=== PATIENT | male | born 1950 | race Caucasian/White ===

== ENCOUNTER 2020-08-02 09:32 | Outpatient (REF) | payer MEDICARE, SELFPAY ==
[2020-08-02 10:31] LABS: MANUAL DIFF FLAG NO
[2020-08-02 10:35] LABS: Basophils Percent Auto 0.4 % (0-2); Eosinophils Absolute Auto 0.2 X10*3/uL (0.0-0.4); Eosinophils Percent Auto 3.4 % (0-4); Hematocrit 48.6 % (42-52); Hemoglobin 16.3 g/dl (14.0-18.0); Imm Gran Abs Auto 0.03 X10*3/uL (0.00-0.03); Imm Gran Pct Auto 0.4 % (0.0-0.4); Lymphocytes Absolute Auto 1.9 X10*3/uL (1.2-4.9); Lymphocytes Percent Auto 27.9 % (20-40); Mean Corpuscular HGB Conc 33.5 g/dl (31.0-36.0); Mean Corpuscular Hemoglobin 30.8 pg (27.0-33.0); Mean Corpuscular Volume 91.9 fL (80-98); Mean Platelet Volume 9.2 fL (9.4-12.4); Monocytes Absolute Auto 0.6 X10*3/uL (0.1-1.2); Neutrophils Percent Auto 58.9 % (45-73); Platelet Count 266 X10*3/uL (160-400); Red Blood Count 5.29 X10*6/uL (4.60-5.80); Red Cell Distribution Width 13.2 % (11.0-16.0); White Blood Count 6.8 X10*3/uL (4.8-10.8)
[2020-08-02 10:49] LABS: Glucose Urine UA 500 MG/DL (NEG); Leukocyte Esterase Urine NEG (NEG); Nitrite Urine NEG (NEG); PH 5.5 (5.0-8.0); Specific Gravity - Urine >= 1.030 (1.005-1.025); Urine Blood NEG (NEG); Urine Ketones NEG (NEG); Urine Protein NEG (NEG-TRACE)
[2020-08-02 10:51] LABS: Appearance Urine CLEAR; Color Urine YELLOW
[2020-08-02 11:07] LABS: Alanine Aminotransferase 25 U/L (0-40); Albumin Level 4.2 g/dL (3.5-5.0); Alkaline Phosphatase 109 U/L (39-117); Anion Gap 12 (12-20); Aspartate Amino Transferase 18 U/L (5-37); Bilirubin Total 0.9 mg/dL (0.0-1.0); Blood Urea Nitrogen 15 mg/dL (9-16); Calcium 9.3 mg/dL (8.4-10.2); Carbon Dioxide 29 mmol/L (22-29); Chloride 107 mmol/L (96-108); Estimated Glomerular Filt Rate 55; Glucose Random 101 mg/dL (60-115); Sodium 143 mmol/L (135-145); Total Protein 7.7 g/dL (6.5-8.0)
[2020-08-02 11:32] LABS: Thyroid Stimulating Hormone 0.98 uIU/mL (0.32-4.0)
[2020-08-02 11:41] LABS: Folate 5.9 ng/mL (> or = 4.0); Vitamin B12 793 pg/mL (200-900)
[2020-08-02 12:24] LABS: Erythrocyte Sedimentation Rate 4 MM/HR (0-15)
[2020-08-02 12:42] LABS: RBC Urine 0 /HPF (0); WBC Urine 0 /HPF (0-4)
== END 2020-08-02 09:33 | disposition home or self-care (01) ==
LOC: HO.WFDLDS 09:32
PROVIDERS: Visit Provider Internal Medicine
DX: E78.00 Pure hypercholesterolemia, unspecified (principal); I10 Essential (primary) hypertension; E11.65 Type 2 diabetes mellitus with hyperglycemia; Z79.4 Long term (current) use of insulin; Z79.899 Other long term (current) drug therapy
CPT/HCPCS: 36415; 80053; 81001; 82607; 82746; 84439; 84443; 85025; 85652

== ENCOUNTER → 2020-10-11 09:42 | Outpatient (BNVA) | payer MEDICARE, SELFPAY | PROVIDERS: PCP Internal Medicine; Visit Provider Internal Medicine Endocrinology, Diabetes & Metabolism | DX: E11.65 Type 2 diabetes mellitus with hyperglycemia (principal); E11.42 Type 2 diabetes mellitus with diabetic 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; E11.22 Type 2 diabetes mellitus with diabetic chronic kidney disease; I12.9 Hypertensive chronic kidney disease with stage 1 through stage 4 chronic kidney disease, or unspecified chronic kidney disease; N18.31 Chronic kidney disease, stage 3a; Z79.4 Long term (current) use of insulin; E66.9 Obesity, unspecified; E78.00 Pure hypercholesterolemia, unspecified | CPT/HCPCS: 82947; 99202 ==

== ENCOUNTER 2021-05-29 09:36 | Outpatient (REF) | payer MEDICARE, SELFPAY ==
[2021-05-29 11:25] LABS: MANUAL DIFF FLAG NO
[2021-05-29 11:35] LABS: Basophils Absolute Auto 0.1 X10*3/uL (0.0-0.2); Eosinophils Absolute Auto 0.2 X10*3/uL (0.0-0.4); Eosinophils Percent Auto 3.7 % (0-4); Hematocrit 45.1 % (42.0-52.0); Hemoglobin 15.2 g/dl (14.0-18.0); Imm Gran Abs Auto 0.04 X10*3/uL (0.00-0.03); Imm Gran Pct Auto 0.8 % (0.0-0.4); Lymphocytes Absolute Auto 1.4 X10*3/uL (1.2-4.9); Lymphocytes Percent Auto 28.3 % (20-40); Mean Corpuscular HGB Conc 33.7 g/dl (31.0-36.0); Mean Corpuscular Hemoglobin 30.8 pg (27.0-33.0); Mean Corpuscular Volume 91.3 fL (80.0-98.0); Mean Platelet Volume 9.8 fL (9.4-12.4); Monocytes Absolute Auto 0.4 X10*3/uL (0.1-1.2); Monocytes Percent Auto 7.3 % (2-11); Neutrophils Absolute Auto 2.9 x10*3/uL (2.0-8.3); Neutrophils Percent Auto 58.9 % (45-73); Platelet Count 267 X10*3/uL (160-400); Red Blood Count 4.94 X10*6/uL (4.60-5.80); Red Cell Distribution Width 13.2 % (11.0-16.0); White Blood Count 4.9 X10*3/uL (4.8-10.8)
[2021-05-29 12:08] LABS: Estimated Average Glucose 217 mg/dL; Hemoglobin A1c % 9.2 %
[2021-05-29 12:12] LABS: Creatinine Urine 149.62 mg/dL
[2021-05-29 12:36] LABS: Vitamin B12 435 pg/mL (200-900)
[2021-05-29 14:20] LABS: Alanine Aminotransferase 22 U/L (0-40); Albumin Level 3.9 g/dL (3.5-5.0); Alkaline Phosphatase 136 U/L (39-117); Anion Gap 15 (12-20); Aspartate Amino Transferase 15 U/L (5-37); Bilirubin Total 0.5 mg/dL (0.0-1.0); Blood Urea Nitrogen 13 mg/dL (9-16); Calcium 9.2 mg/dL (8.4-10.2); Carbon Dioxide 24 mmol/L (22-29); Chloride 106 mmol/L (96-108); Cholesterol 215 mg/dL; Estimated Glomerular Filt Rate 49; Glucose Random 249 mg/dL (60-115); HDL Cholesterol 39 mg/dL; LDL Cholesterol Calculated 133 mg/dl; Potassium 4.7 mmol/L (3.3-5.1); Sodium 140 mmol/L (135-145); Total Protein 7.3 g/dL (6.5-8.0); Triglycerides 216 mg/dL
[2021-05-29 14:41] LABS: Free T4 (Free Thyroxine) 0.88 ng/dL (0.71-1.85); Prostate Specific Antigen Scr 3.35 ng/mL (<0.05-4.0); Thyroid Stimulating Hormone 1.23 uIU/mL (0.32-4.0)
== END 2021-05-29 09:37 | disposition home or self-care (01) ==
LOC: HO.WFDLDS 09:36
PROVIDERS: Visit Provider Internal Medicine
DX: E11.65 Type 2 diabetes mellitus with hyperglycemia (principal); E78.00 Pure hypercholesterolemia, unspecified; Z79.4 Long term (current) use of insulin
CPT/HCPCS: 36415; 80053; 80061; 82043; 82607; 82746; 83036; 84153; 84439; 84443; 85025

== ENCOUNTER → 2021-09-26 09:27 | Outpatient (BNVA) | payer MEDICARE, SELFPAY | PROVIDERS: PCP Internal Medicine; Visit Provider Psychiatry & Neurology Neurology | DX: R41.3 Other amnesia (principal); G47.33 Obstructive sleep apnea (adult) (pediatric) | CPT/HCPCS: 99202 ==

== ENCOUNTER 2021-09-28 11:48 | Outpatient (REF) | payer MEDICARE, SELFPAY ==
[2021-09-28 12:09] LABS: MANUAL DIFF FLAG NO
[2021-09-28 12:17] LABS: Basophils Percent Auto 0.6 % (0-2); Eosinophils Absolute Auto 0.2 X10*3/uL (0.0-0.4); Eosinophils Percent Auto 3.7 % (0-4); Hematocrit 42.9 % (42.0-52.0); Hemoglobin 14.5 g/dl (14.0-18.0); Imm Gran Abs Auto 0.02 X10*3/uL (0.00-0.03); Imm Gran Pct Auto 0.4 % (0.0-0.4); Lymphocytes Absolute Auto 1.4 X10*3/uL (1.2-4.9); Lymphocytes Percent Auto 26.2 % (20-40); Mean Corpuscular HGB Conc 33.8 g/dl (31.0-36.0); Mean Corpuscular Hemoglobin 30.7 pg (27.0-33.0); Mean Corpuscular Volume 90.9 fL (80.0-98.0); Monocytes Absolute Auto 0.4 X10*3/uL (0.1-1.2); Monocytes Percent Auto 7.7 % (2-11); Neutrophils Absolute Auto 3.2 x10*3/uL (2.0-8.3); Neutrophils Percent Auto 61.4 % (45-73); Platelet Count 241 X10*3/uL (160-400); Red Blood Count 4.72 X10*6/uL (4.60-5.80); White Blood Count 5.2 X10*3/uL (4.8-10.8)
[2021-09-28 12:56] LABS: Estimated Average Glucose 186 mg/dL; Hemoglobin A1c % 8.1 %
[2021-09-28 13:29] LABS: Vitamin B12 372 pg/mL (200-900)
[2021-09-28 14:25] LABS: Alanine Aminotransferase 29 U/L (0-40); Albumin Level 3.9 g/dL (3.5-5.0); Alkaline Phosphatase 116 U/L (39-117); Anion Gap 13 (12-20); Aspartate Amino Transferase 19 U/L (5-37); Bilirubin Total 0.9 mg/dL (0.0-1.0); Blood Urea Nitrogen 16 mg/dL (9-16); Calcium 9.3 mg/dL (8.4-10.2); Carbon Dioxide 25 mmol/L (22-29); Chloride 108 mmol/L (96-108); Cholesterol 111 mg/dL; Estimated Glomerular Filt Rate 60; Glucose Random 139 mg/dL (60-115); HDL Cholesterol 39 mg/dL; LDL Cholesterol Calculated 62 mg/dl; Sodium 141 mmol/L (135-145); Total Protein 7.1 g/dL (6.5-8.0); Triglycerides 50 mg/dL
[2021-09-28 14:36] LABS: Thyroid Stimulating Hormone 0.66 uIU/mL (0.32-4.0); Vitamin D 25-OH Total 29.1 ng/mL (>30)
[2021-10-02 16:37] LABS: Homocysteine 12.3 umol/L (<11.4)
== END 2021-09-28 11:49 | disposition home or self-care (01) ==
LOC: HO.LAB 11:48
PROVIDERS: Absent Provider Internal Medicine; PCP Internal Medicine; Visit Provider Psychiatry & Neurology Neurology
DX: R41.3 Other amnesia (principal); E78.00 Pure hypercholesterolemia, unspecified
CPT/HCPCS: 36415; 80053; 80061; 82306; 82607; 82746; 83036; 83090; 84443; 85025

== ENCOUNTER 2021-09-29 07:21 | Outpatient (REF) | payer MEDICARE, SELFPAY ==
--- NOTE | ~2021-09-29 | MR_ITS ---
EXAMINATION: MR BRAIN WITHOUT CONTRAST CLINICAL INFORMATION: Amnesia. COMPARISON: Head CT from 08/28/2016. TECHNIQUE: Multiplanar, multisequence imaging of the brain was performed without contrast. FINDINGS: No diffusion abnormalities are identified to suggest an acute infarct. The ventricles are normal in size. No mass effect or midline shift is seen. Nonspecific very mild scattered white matter signal changes may be due to chronic microangiopathy. No extra-axial fluid collections are seen. The brainstem and cerebellum are normal. The gradient refocused acquisition demonstrates no pathologic magnetic susceptibility artifact to indicate underlying acute or chronic blood products. The craniovertebral junction, marrow signal, and midline structures are normal. The major intracranial flow voids at the level of the [place] of [place] are preserved. The dural venous sinus flow voids are maintained. The mastoid air cells are well aerated. There is a 2.8 cm retention cyst along the floor of the left maxillary antrum. Mild patchy areas of mucosal thickening noted in the ethmoid sinus air cells bilaterally. MR/MR head/brain wo con IMPRESSION: No acute process. Very mild chronic white matter microangiopathy.
== END 2021-09-29 07:22 | disposition home or self-care (01) ==
LOC: HO.MRI 07:21
PROVIDERS: Visit Provider Psychiatry & Neurology Neurology
DX: R41.3 Other amnesia (principal)
CPT/HCPCS: 70551

== ENCOUNTER 2023-02-19 08:29 | Outpatient (REF) | payer MEDICARE, SELFPAY ==
[2023-02-19 08:49] LABS: MANUAL DIFF FLAG NO
[2023-02-19 10:18] LABS: Basophils Percent Auto 0.7 % (0-2); Eosinophils Absolute Auto 0.2 X10*3/uL (0.0-0.4); Eosinophils Percent Auto 3.2 % (0-4); Hematocrit 46.6 % (42.0-52.0); Hemoglobin 15.8 g/dl (14.0-18.0); Imm Gran Abs Auto 0.04 X10*3/uL (0.00-0.03); Imm Gran Pct Auto 0.7 % (0.0-0.4); Lymphocytes Absolute Auto 1.5 X10*3/uL (1.2-4.9); Lymphocytes Percent Auto 28.6 % (20-40); Mean Corpuscular HGB Conc 33.9 g/dl (31.0-36.0); Mean Corpuscular Hemoglobin 30.6 pg (27.0-33.0); Mean Corpuscular Volume 90.1 fL (80.0-98.0); Mean Platelet Volume 9.6 fL (9.4-12.4); Monocytes Absolute Auto 0.5 X10*3/uL (0.1-1.2); Monocytes Percent Auto 8.3 % (2-11); Neutrophils Absolute Auto 3.2 x10*3/uL (2.0-8.3); Neutrophils Percent Auto 58.5 % (45-73); Platelet Count 251 X10*3/uL (160-400); Red Blood Count 5.17 X10*6/uL (4.60-5.80); Red Cell Distribution Width 12.8 % (11.0-16.0); White Blood Count 5.4 X10*3/uL (4.8-10.8)
[2023-02-19 10:28] LABS: Estimated Average Glucose 203 mg/dL; Hemoglobin A1c % 8.7 %
[2023-02-19 11:00] LABS: Alanine Aminotransferase 17 U/L (0-40); Albumin Level 3.9 g/dL (3.5-5.0); Alkaline Phosphatase 105 U/L (39-117); Anion Gap 11 (12-20); Aspartate Amino Transferase 13 U/L (5-37); Bilirubin Total 0.5 mg/dL (0.0-1.0); Blood Urea Nitrogen 16 mg/dL (9-16); Calcium 9.6 mg/dL (8.4-10.2); Carbon Dioxide 28 mmol/L (22-29); Chloride 106 mmol/L (96-108); Cholesterol 216 mg/dL; Estimated Glomerular Filt Rate 46; Glucose Random 149 mg/dL (60-115); HDL Cholesterol 41 mg/dL; LDL Cholesterol Calculated 150 mg/dl; Potassium 4.5 mmol/L (3.3-5.1); Sodium 140 mmol/L (135-145); Total Protein 7.7 g/dL (6.5-8.0); Triglycerides 125 mg/dL
[2023-02-19 11:16] LABS: Free T4 (Free Thyroxine) 0.76 ng/dL (0.71-1.85); Thyroid Stimulating Hormone 1.55 uIU/mL (0.32-4.0)
[2023-02-19 11:20] LABS: Creatinine Urine 197.15 mg/dL
[2023-02-19 11:31] LABS: Folate 13.2 ng/mL (> or = 4.0); Prostate Specific Antigen Scr 4.55 ng/mL (<0.05-4.0); Vitamin B12 1106 pg/mL (200-900)
== END 2023-02-19 08:30 | disposition home or self-care (01) ==
LOC: HO.LAB 08:29
PROVIDERS: PCP Internal Medicine; Visit Provider Internal Medicine
DX: Z12.5 Encounter for screening for malignant neoplasm of prostate (principal); E11.65 Type 2 diabetes mellitus with hyperglycemia; E78.00 Pure hypercholesterolemia, unspecified; Z79.4 Long term (current) use of insulin
CPT/HCPCS: 36415; 80053; 80061; 82043; 82607; 82746; 83036; 84153; 84439; 84443; 85025

== ENCOUNTER 2023-03-12 08:13 | Outpatient (REF) | payer MEDICARE, SELFPAY ==
[2023-03-12 10:48] LABS: Alanine Aminotransferase 14 U/L (0-40); Albumin Level 3.7 g/dL (3.5-5.0); Alkaline Phosphatase 91 U/L (39-117); Anion Gap 9 (12-20); Aspartate Amino Transferase 14 U/L (5-37); Bilirubin Total 0.8 mg/dL (0.0-1.0); Blood Urea Nitrogen 11 mg/dL (9-16); Calcium 9.2 mg/dL (8.4-10.2); Carbon Dioxide 29 mmol/L (22-29); Chloride 107 mmol/L (96-108); Estimated Glomerular Filt Rate 52; Glucose Random 124 mg/dL (60-115); Potassium 3.9 mmol/L (3.3-5.1); Sodium 141 mmol/L (135-145); Total Protein 6.9 g/dL (6.5-8.0)
[2023-03-12 11:23] LABS: Creatinine Urine 270.04 mg/dL
[2023-03-12 11:55] LABS: PSA,Total (Free>4and<10) 3.46 ng/mL (0.00-4.00)
== END 2023-03-12 08:14 | disposition home or self-care (01) ==
LOC: HO.LAB 08:13
PROVIDERS: PCP Internal Medicine; Visit Provider Internal Medicine
DX: E11.65 Type 2 diabetes mellitus with hyperglycemia (principal); R97.20 Elevated prostate specific antigen [PSA]; Z79.4 Long term (current) use of insulin; Z12.5 Encounter for screening for malignant neoplasm of prostate
CPT/HCPCS: 36415; 80053; 82570; 84153

== ENCOUNTER 2023-03-26 08:25 | Outpatient (AMB) | payer MEDICARE, SELFPAY ==
--- NOTE | 2023-03-26 08:27 | A.OFFPC_ITS ---
Vital Signs 03/26/23 08:28 Height 6 ft 2 in Weight 246 lb BMI 31.6 BP 132/86 Blood Pressure Location Lt brachial Position Sitting Pulse 58 Pulse Source Pulse Oximeter Pulse Oximetry (%) 97 Oxygen Delivery Method Room Air Intake Visit Reasons: 3mth f/u Intake Note: Patient here for a 3 month follow up Instrument Operator Required: No Accompanied by: Self / Same As Patient Allergies lisinopril Allergy (Unknown, Verified 03/26/23 08:29) cough Sulfa (Sulfonamide Antibiotics) Allergy (Unknown, Verified 03/26/23 08:29) Unknown DONAL Inhibitors [DONAL INHIBITORS] Adverse Reaction (Intermediate, Verified 03/26/23 08:29) COUGH jardiance Adverse Reaction (Intermediate, Uncoded 12/07/22 08:38) weakness Medication List - Last Reconciled 03/26/23 by Pearl Álvarez MD amlodipine 2.5 mg PO DAILY 90 days apixaban (Eliquis) 5 mg PO BID atorvastatin 40 mg PO DAILY 90 days blood sugar diagnostic (FreeStyle Lite Strips) As directed check the QAC TID cyanocobalamin (vitamin B-12) 1,000 mcg PO DAILY dulaglutide 1.5 mg (0.5 mL) subcut QWEEK 90 days flash glucose scanning reader (FreeStyle Nori 2 [place]) As directed flash glucose sensor (FreeStyle Nori 2 Sensor kit) As directed fluoxetine 40 mg (2 x 20 mg) PO DAILY folic acid 1 mg PO DAILY 90 days insulin glargine (Basaglar KwikPen U-100 Insulin) 30 units (0.3 mL) subcut DAILY 90 days losartan 50 mg PO DAILY metformin 1,000 mg PO BID 90 days multivitamin 1 cap PO DAILY Tobacco use date assessed: 08/16/22 Fall risk assessment: No Falls in past year Last assessed Fall Risk: 03/26/23 Dental Screening Dental Screen Date: 03/26/23 Did you have a dental visit in the last 12 months?: No Did you have a dental problem in the last 6 months where you did not have access to dental care?: No Was dental information given to patient?: Patient has dentist HPI 3mth f/u HPI Details 72-year-old obese male with uncontrolled diabetes mellitus hypercholesterolemia hypertension chronic kidney disease last seen in December 2022. Patient has been placed on Trulicity and Jardiance but patient cannot tolerate Jardiance. patient on metformin and basal insulin. Patient is here for follow- up noted increase in weight still. Blood work done in February 2023. Patient has been adjusting the Basaglar according to his sugars and discussed with the patient that this is not insulin that we need changing. Clarified with the patient that this is the long-acting 1 and that he should be regular meaning breakfast lunch and dinner and should not be missing meals. Patient has been doing the shots of Trulicity once a week. As for cholesterol since we got the blood work in February changed dose of atorvastatin to 40 mg. We will need to do another cholesterol test in 2 months. Patient admits to eating a lot of ice cream before but since blood work has stopped. Discussed about vaccination also declined COVID shot. 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 Family/Other Diabetes Social History Housing: House Alcohol intake: current Alcohol intake frequency: holidays/special occasions only Patient Tobacco Use Status: Never used Tobacco e-Cigarette/Vaping Use: Never Used Second Hand Smoke Exposure: No service: No Current occupational status: retired Cognitive needs: No Hearing needs: No Vision needs: Yes Questionnaire Thrive Questionnaire Date Thrive assessed: 08/16/22 APOORVA-7 AMB Questionnaire APOORVA-7 Date APOORVA - 7 assessed: 08/16/22 Source: Developed by Drs. Balta Reyes, Estefania B.W. Hiram Singh and colleagues, with an educational alonso from [employer]. Physical exam (Primary Care) Vital Signs: Last Vital Signs Pulse 58 03/26/23 08:28 BP 132/86 03/26/23 08:28 Pulse Ox 97 03/26/23 08:28 Oxygen Delivery Method Room Air 03/26/23 08:28 BMI result Body Mass Index 31.6 Tobacco/Smoking Status: Tobacco use Status Tobacco use date assessed 08/16/22 03/26/23 08:29 Patient Tobacco Use Status Never used Tobacco 03/26/23 08:29 e-Cigarette/Vaping Use Never Used 03/26/23 08:29 Thrive Assessment: Date of Thrive Assessment Date Thrive assessed 08/16/22 03/26/23 08:29 Const General: alert; No acute distress Eyes Conjunctivae: conjunctivae normal Resp Auscultation: clear to auscultation bilaterally Cardio Rate: regular rate Rhythm: regular rhythm GI Inspection: Yes normal to inspection Extrem General: Yes normal to inspection and No edema Assessment and Plan Assessment & Plan (1) Type 2 diabetes mellitus with hyperglycemia: Comment: eye Dr. Palomo Code(s): E11.65 - Type 2 diabetes mellitus with hyperglycemia Qualifiers: Diabetes mellitus half-way insulin use: with exterminator use Qualified Code(s): E11.65 - Type 2 diabetes mellitus with hyperglycemia; Z79.4 - penitentiary (current) use of insulin Plan: Decrease the amount of carbohydrate intake, pasta, bread, rice and potatoes are all sugar and that is aside from all the sweet stuff, remember that fruits are good but they are Sweet also. Hemoglobin A1c goal of less than 7.0. Patient is on Trulicity 1.5 mg per week Basaglar 30 units once a day metformin 1000 mg twice a day. Patient admits to stopping ice cream now. (2) Obesity (BMI 30-39.9): Code(s): E66.9 - Obesity, unspecified Plan: Diet and exercise (3) Hypertension: Code(s): I10 - Essential (primary) hypertension Qualifiers: Hypertension type: essential hypertension Qualified Code(s): I10 - Essential (primary) hypertension Plan: Continue with blood pressure medication. Decrease salt intake and exercise patient is taking losartan 50 mg once a day and amlodipine 2.5 mg once a day (4) Hypercholesterolemia: Code(s): E78.00 - Pure hypercholesterolemia, unspecified Plan: Avoid fried foods, chicken skin, eggs, butter margarine, pastries and meat. Be it pork or beef they have a lot of cholesterol LDL goal of less than 100. Patient is on atorvastatin 40 mg once a day. Adjusted cholesterol medication in February and will need retesting in couple of months. (5) CKD (chronic kidney disease) stage 3, GFR 30-59 ml/min: Code(s): N18.30 - Chronic kidney disease, stage 3 unspecified Qualifiers: Chronic kidney disease stage 3 subtype: stage 3a (GFR 45-59) Qualified Code(s): N18.31 - Chronic kidney disease, stage 3a Plan: Keep well hydrated avoid NSAIDs. (6) History of pulmonary embolism: Comment: 06/2019? 2013 Code(s): Z86.711 - Personal history of pulmonary embolism Plan: Continue with anticoagulation with Eliquis Orders: Orders Lipid Panel Today E78.00 - Pure hypercholesterolemia, unspecified Complete Blood Count Auto Diff Today E78.00 - Pure hypercholesterolemia, unspecified Comprehensive Met. Panel Today E78.00 - Pure hypercholesterolemia, unspecified Hemoglobin A1c Today E78.00 - Pure hypercholesterolemia, unspecified Medications: Changed From insulin glargine (Basaglar KwikPen U-100 Insulin) 30 units (0.3 mL) subcut DAILY 90 days 27 mL 3RF E11.65 - Type 2 diabetes mellitus with hyperglycemia, Z79.4 - intermediate manager (current) use of insulin To insulin glargine (Basaglar KwikPen U-100 Insulin) 45 units (0.45 mL) subcut DAILY 90 days 40.5 mL 3RF E11.65 - Type 2 diabetes mellitus with hyperglycemia, Z79.4 - intermediate manager (current) use of insulin Coding Level of Care Code Est Pt Level 4 (04986) Diagnoses Type 2 diabetes mellitus with hyperglycemia, with long-term current use of insulin E11.65; Z79.4 Diabetes mellitus half-way insulin use: with half-way use Obesity (BMI 30-39.9) E66.9 Essential hypertension I10 Hypertension type: essential hypertension Hypercholesterolemia E78.00 Stage 3a chronic kidney disease N18.31 Chronic kidney disease stage 3 subtype: stage 3a (GFR 45-59) History of pulmonary embolism Z86.711
[2023-03-26 08:28] VITALS: BP 132/86; PULSE 58; O2SAT 97; BMI 31.6
== END 2023-03-26 09:12 | disposition home or self-care (01) ==
LOC: HO.HMGH 08:25
PROVIDERS: PCP Internal Medicine; Visit Provider Internal Medicine
DX: E11.65 Type 2 diabetes mellitus with hyperglycemia (principal); Z79.4 Long term (current) use of insulin; I12.9 Hypertensive chronic kidney disease with stage 1 through stage 4 chronic kidney disease, or unspecified chronic kidney disease; N18.31 Chronic kidney disease, stage 3a; Z86.711 Personal history of pulmonary embolism; E66.9 Obesity, unspecified; E78.00 Pure hypercholesterolemia, unspecified
CPT/HCPCS: 99214

== ENCOUNTER 2023-07-11 08:15 | Outpatient (AMB) | payer MEDICARE, SELFPAY ==
[2023-07-11 08:42] VITALS: BP 124/70; PULSE 76; O2SAT 94; BMI 32.1
--- NOTE | 2023-07-11 08:42 | MHC.PC.OV ---
Vital Signs 07/11/23 08:42 Height 6 ft 2 in Weight 250 lb 0.4 oz BMI 32.1 BP 124/70 Blood Pressure Location Lt brachial Position Sitting Pulse 76 Pulse Source Pulse Oximeter Pulse Oximetry (%) 94 Oxygen Delivery Method Room Air Intake Visit Reasons: DM Jumpbasting Armhole Baster Required: No Allergies lisinopril Allergy (Unknown, Verified 07/11/23 08:42) cough Sulfa (Sulfonamide Antibiotics) Allergy (Unknown, Verified 07/11/23 08:42) Unknown DONAL Inhibitors [DONAL INHIBITORS] Adverse Reaction (Intermediate, Verified 07/11/23 08:42) COUGH jardiance Adverse Reaction (Intermediate, Uncoded 07/11/23 08:42) weakness Medication List - Last Reconciled 07/11/23 by Pearl Álvarez MD amlodipine 2.5 mg PO DAILY 90 days apixaban (Eliquis) 5 mg PO BID atorvastatin 40 mg PO DAILY 90 days blood sugar diagnostic (FreeStyle Lite Strips) As directed check the QAC TID cyanocobalamin (vitamin B-12) 1,000 mcg PO DAILY dulaglutide 1.5 mg (0.5 mL) subcut QWEEK 90 days flash glucose scanning reader (FreeStyle Nori 2 [place]) As directed flash glucose sensor (FreeStyle Nori 2 Sensor kit) As directed fluoxetine 40 mg (2 x 20 mg) PO DAILY folic acid 1 mg PO DAILY 90 days insulin glargine (Basaglar KwikPen U-100 Insulin) 45 units (0.45 mL) subcut DAILY 90 days losartan 50 mg PO DAILY metformin 1,000 mg PO BID 90 days multivitamin 1 cap PO DAILY Tobacco use date assessed: 07/11/23 Fall risk assessment: No Falls in past year Last assessed Fall Risk: 07/11/23 Dental Screening Dental Screen Date: 07/11/23 Did you have a dental visit in the last 12 months?: No Did you have a dental problem in the last 6 months where you did not have access to dental care?: No HPI DM HPI Details 72-year-old bese male with uncontrolled diabetes mellitus hypertension hypercholesterolemia chronic kidney disease coming in for follow-up. March last seen had a positive Cologuard test and was referred to Gastroenterology. Patient is here for follow-up February 2023 last blood work. Patient does have a schedule with Gastroenterology this July. Patient also complains about dysphagia having things stuck in the esophagus and occasionally vomiting it out and discussed with him that in 2017 had an endoscopy done by Dr. Ricks showing a stricture in which dilatation was done. With this meeting with Gastroenterology most probably will who do EGD. As for diabetes patient was not able to get the Trulicity because of non coverage. Will try to figure out which 1 is being covered meanwhile with a hemoglobin A1c rising up to 9.7 advised to refer to endocrinology. As for the cholesterol reminded patient that there is a request for cholesterol test and for him to do it again. As the last LDL done in February was 150 and the goal is less than 100. [facility] Medical History (Updated 07/11/23 @ 09:19 by Pearl Álvarez MD) Adult general medical exam Screening for prostate cancer Diabetic 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 associated with type 2 diabetes mellitus penitentiary (current) use of insulin Vitamin D deficiency Carpal tunnel syndrome, right Laceration of thumb, right, complicated CKD (chronic kidney disease) stage 3, GFR 30-59 ml/min Benign esophageal stricture Fracture of right heel History of renal calculi Hypertension Hypercholesterolemia Obesity (BMI 30-39.9) Obstructive sleep apnea History of pulmonary embolism Anxiety and depression Type 2 diabetes mellitus with hyperglycemia Surgical History History of colonoscopy Family History Father Hypertension CVD (cardiovascular disease) Prostate enlargement Mother No problems noted. Family/Other Diabetes Social History Housing: House Alcohol intake: current Alcohol intake frequency: holidays/special occasions only Patient Tobacco Use Status: Never used Tobacco e-Cigarette/Vaping Use: Never Used Second Hand Smoke Exposure: No service: No Current occupational status: retired Cognitive needs: No Hearing needs: No Vision needs: Yes Questionnaire PHQ-9 Over the last 2 weeks, how often have you been bothered by any of the following problems? 1. Little interest or pleasure in doing things: not at all 2. Feeling down, depressed, or hopeless: not at all 3. Trouble falling or staying asleep, or sleeping too much: not at all 4. Feeling tired or having little energy: not at all 5. Poor appetite or overeating: not at all 6. Feeling bad about yourself - or that you are a failure or have let yourself or your family down: not at all 7. Trouble concentrating on things, such as reading the newspaper or watching television: not at all 8. Moving or speaking so slowly that other people could have noticed. Or the opposite - being so fidgety or restless that you have been moving around a lot more than usual: not at all 9. Thoughts that you would be better off or of hurting yourself in some way: not at all Total score: 0 Depression Screening Interpretation: Negative Depression Screening Done: Yes Source: Developed by Drs. Balta Reyes, Estefania Singh, Hiram Driver and colleagues, with an educational alonso from [employer]. Thrive Questionnaire Date Thrive assessed: 08/16/22 AUDIT C Alcohol Use Questionnaire (AUDIT-C) 1. How often do you have a drink containing alcohol?: Monthly or less 2. How many drinks containing alcohol do you have on a typical day when you are drinking?: 1 or 2 3. How often do you have six or more drinks on one occasion?: Never Total Score: 1 Score Reviewed/Action Taken: No APOORVA-7 AMB Questionnaire APOORVA-7 Date APOORVA - 7 assessed: 07/11/23 Feeling nervous, anxious, or on edge: 0 = Not at all Not being able to stop or control worryin = Not at all Worrying too much about different things: 0 = Not at all Trouble relaxin = Not at all Being so restless that it is hard to sit still: 0 = Not at all Becoming easily annoyed or irritable: 0 = Not at all Feeling afraid as if something awful might happen: 0 = Not at all Total APOORVA-7 score (0-4 normal; 5-9 mild; 10-14 moderate; 15-21 severe): 0 Source: Developed by Drs. Balta Reyes, Estefania Singh, Hiram Driver and colleagues, with an educational alonso from [employer]. Physical exam (Primary Care) Vital Signs: Last Vital Signs Pulse 76 07/11/23 08:42 BP 124/70 07/11/23 08:42 Pulse Ox 94 07/11/23 08:42 Oxygen Delivery Method Room Air 07/11/23 08:42 BMI result Body Mass Index 32.1 Tobacco/Smoking Status: Tobacco use Status Tobacco use date assessed 07/11/23 07/11/23 08:43 Patient Tobacco Use Status Never used Tobacco 07/11/23 08:43 e-Cigarette/Vaping Use Never Used 07/11/23 08:43 PHQ-9: PHQ-9 Score PHQ-9: Total score 0 07/11/23 08:44 Depression Screening Interpretation: Negative Thrive Assessment: Date of Thrive Assessment Date Thrive assessed 08/16/22 07/11/23 08:43 Const General: alert; No acute distress Eyes Conjunctivae: conjunctivae normal Resp Auscultation: clear to auscultation bilaterally Cardio Rate: regular rate Rhythm: regular rhythm GI Inspection: Yes normal to inspection Extrem General: Yes normal to inspection and No edema Results AMB Hemoglobin A1c AMB Hemoglobin A1c 9.7 % Last Edit by ZAKIA Reyna on 07/11/23 08:58 Assessment and Plan Assessment & Plan (1) Type 2 diabetes mellitus with hyperglycemia: Comment: eye Dr. Palomo Code(s): E11.65 - Type 2 diabetes mellitus with hyperglycemia Qualifiers: Diabetes mellitus shelter insulin use: with insurance claim approver use Qualified Code(s): E11.65 - Type 2 diabetes mellitus with hyperglycemia; Z79.4 - janitor (current) use of insulin Plan: Decrease the amount of carbohydrate intake, pasta, bread, rice and potatoes are all sugar and that is aside from all the sweet stuff, remember that fruits are good but they are Sweet also. Hemoglobin A1c goal of less than 7.0 patient is on Trulicity 1.5 insulin Lantus 45 units metformin a 1000 mg twice a day (2) Obesity (BMI 30-39.9): Code(s): E66.9 - Obesity, unspecified Plan: Diet and exercise (3) Hypertension: Code(s): I10 - Essential (primary) hypertension Qualifiers: Hypertension type: essential hypertension Qualified Code(s): I10 - Essential (primary) hypertension Plan: Continue with blood pressure medication. Decrease salt intake and exercise patient takes losartan 50 mg once a day and amlodipine 2.5 mg once a day (4) Hypercholesterolemia: Code(s): E78.00 - Pure hypercholesterolemia, unspecified Plan: Avoid fried foods, chicken skin, eggs, butter margarine, pastries and meat. Be it pork or beef they have a lot of cholesterol LDL goal of less than 100 and triglyceride of less than 150. Presently on atorvastatin 40 mg once a day (5) CKD (chronic kidney disease) stage 3, GFR 30-59 ml/min: Code(s): N18.30 - Chronic kidney disease, stage 3 unspecified Qualifiers: Chronic kidney disease stage 3 subtype: stage 3a (GFR 45-59) Qualified Code(s): N18.31 - Chronic kidney disease, stage 3a Plan: Keep well hydrated avoid NSAIDs controlled diabetes and hypertension (6) Positive colorectal cancer screening using Cologuard test: Code(s): R19.5 - Other fecal abnormalities Plan: Discussed about patient being referred to Gastroenterology- July 30, 2023 (7) Dysphagia: Code(s): R13.10 - Dysphagia, unspecified Plan: 07/30/2023 will be seeing Gastroeneterology Orders: Orders AMB Hemoglobin A1c Today E11.65 - Type 2 diabetes mellitus with hyperglycemia Referrals Endocrinology Referral E11.65 - Type 2 diabetes mellitus with hyperglycemia, Z79.4 - penitentiary (current) use of insulin Coding Level of Care Code Est Pt Level 4 (52031) Diagnoses Type 2 diabetes mellitus with hyperglycemia, with long-term current use of insulin E11.65; Z79.4 Diabetes mellitus shelter insulin use: with insurance claim approver use Obesity (BMI 30-39.9) E66.9 Essential hypertension I10 Hypertension type: essential hypertension Hypercholesterolemia E78.00 Stage 3a chronic kidney disease N18.31 Chronic kidney disease stage 3 subtype: stage 3a (GFR 45-59) Positive colorectal cancer screening using Cologuard test R19.5 Dysphagia R13.10 Additional Codes PHQ-9 - 11130 - PHQ-9 Billing: ([id number])
== END 2023-07-11 09:22 | disposition home or self-care (01) ==
PROVIDERS: PCP Internal Medicine; Visit Provider Internal Medicine
DX: E11.65 Type 2 diabetes mellitus with hyperglycemia (principal); Z79.4 Long term (current) use of insulin; I12.9 Hypertensive chronic kidney disease with stage 1 through stage 4 chronic kidney disease, or unspecified chronic kidney disease; N18.31 Chronic kidney disease, stage 3a; R19.5 Other fecal abnormalities; R13.10 Dysphagia, unspecified
CPT/HCPCS: 83036; 99214

== ENCOUNTER 2023-08-12 13:03 | Day surgery (SDC) | payer MEDICARE, SELFPAY ==
--- NOTE | 2023-08-12 13:15 | P.CONAN_ITS ---
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 (Acute) Mood changes (Acute) CKD (chronic kidney disease) stage 3, GFR 30-59 ml/min (Acute) Hypertension (Acute) Hypercholesterolemia (Acute) Obesity (BMI 30-39.9) (Acute) Obstructive sleep apnea (Acute) Anxiety and depression (Acute) Type 2 diabetes mellitus with hyperglycemia (Acute) Past Medical History Medical History Adult general medical exam Screening for prostate cancer Diabetic 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 associated with type 2 diabetes mellitus [facility] (current) use of insulin Vitamin D deficiency Carpal tunnel syndrome, right Laceration of thumb, right, complicated CKD (chronic kidney disease) stage 3, GFR 30-59 ml/min Benign esophageal stricture Fracture of right heel History of renal calculi Hypertension Hypercholesterolemia Obesity (BMI 30-39.9) Obstructive sleep apnea History of pulmonary embolism Anxiety and depression Type 2 diabetes mellitus with hyperglycemia Family History Family History Father Hypertension CVD (cardiovascular disease) Prostate enlargement Mother No problems noted. Family/Other Diabetes Surgical History Surgical History History of colonoscopy Social History Social History Housing: House Alcohol intake: current Alcohol intake frequency: holidays/special occasions only Patient Tobacco Use Status: Never used Tobacco e-Cigarette/Vaping Use: Never Used Second Hand Smoke Exposure: No service: No Current occupational status: retired Cognitive needs: No Hearing needs: No Vision needs: Yes Meds Allergies Allergy/AdvReac Type Severity Reaction Status Date / Time lisinopril Allergy Unknown cough Verified 07/11/23 08:42 Sulfa (Sulfonamide Allergy Unknown Unknown Verified 07/11/23 08:42 Antibiotics) DONAL Inhibitors AdvReac Intermediate COUGH Verified 07/11/23 08:42 [DONAL INHIBITORS] jardiance AdvReac Intermediate weakness Uncoded 07/11/23 08:42 Active Medications: Current Medications Sodium Biphosphate/Sodium Phosphate (Sodium Phosphate,[place]-Dibasic 133 Ml Enema) 133 ml MO ONCE PRN PRN Reason: Poor Colonoscopy Prep Results Home Medications Medication Instructions Recorded Confirmed Last Taken Type multivitamin 1 cap PO DAILY 04/26/20 07/11/23 Unknown History Exam Airway Mallampati Class: III TM Dist: >3cm Neck ROM: Full Heart: RRR Lungs: CTA Assessment and Plan Assessment Anesthesia Assessment: Anesthesia Plan Discussed Final Anesthetic Review Final Preanesthetic Review: Meds/Allgs Chart Reviewed, Consent Obtained/Reviewed and Anes Risks/Benef Reviewed Patient Risk: Intermediate Procedure Risk: Low Anesthetic Plan Anesthetic Plan: MAC: Disposition: Standard PACU
[2023-08-12 13:28] VITALS: BMI 31.2
[2023-08-12 13:35] VITALS: BP 175/91; PULSE 64; RESP 16; TEMP 36.6; O2SAT 99
--- NOTE | 2023-08-12 13:49 | PC.NURSE ---
md bean aware of poc 330. patient hasnt been on trulicity for three month because its on backorder and his manjaro hasnt been started [place] because of thei procedure that was scheduled. took metformin yesterday morning. md bean to put in insulin orders for patient. patient states hes had increased urination and slight blurred vision.
[2023-08-12 13:50] LABS: Glucose, Whole Blood 330 mg/dL (60-115)
[2023-08-12] MEDS: 0.9 % Sodium Chloride 1,000 ML 100 ML IVCONT (14:03)
--- NOTE | 2023-08-12 14:09 | PC.NURSE ---
called pharmacy to stock pyxis for the insulin order
[2023-08-12] MEDS: Insulin Lispro 100 UNIT/ML 3 ML VIAL 10 UNIT SUBCUT (14:20)
[2023-08-12 16:14] VITALS: BP 116/70; PULSE 70; RESP 11; TEMP 36.4; O2SAT 97
[2023-08-12 16:16] LABS: Glucose, Whole Blood 252 mg/dL (60-115)
--- NOTE | 2023-08-12 16:20 | P.BOP_ITS ---
Brief Operative Note Date of Service: 08/12/23 Pre-op diagnosis: + Cologuard Post-op diagnosis: other (Diverticulosis) Procedure: Colonoscopy to the cecum and TI Surgeon: Balta Ricks MD Anesthesia: MAC Was an Cardiac Cath Lab Radiology Technologist used for this Procedure?: No Estimated blood loss (mL): 0 Pathology: none sent Condition: stable Disposition: PACU
[2023-08-12 16:29] VITALS: BP 133/92; PULSE 73; RESP 16; TEMP 36.6; O2SAT 96
--- NOTE | 2023-08-12 17:14 | OP_ITS ---
DATE OF SERVICE: 08/12/2023 SURGEON: Balta Ricks MD INDICATIONS: Patient presents for evaluation of a positive Cologuard test. Full consent has been obtained from him for this, including risks of bleeding and perforation. PREOPERATIVE DIAGNOSIS: Positive Cologuard test. POSTOPERATIVE DIAGNOSIS: PROCEDURE PERFORMED: Colonoscopy to cecum and terminal ileum. ESTIMATED BLOOD LOSS: COMPLICATIONS: ANESTHESIA: Medication used: Monitored anesthesia care. ASSISTANTS: SPECIMENS: POSTOPERATIVE DIAGNOSES: Positive Cologuard test, sigmoid diverticulosis, and internal hemorrhoids. DESCRIPTION OF PROCEDURE: The patient was placed in the left lateral decubitus position. The digital rectal exam revealed no abnormalities. The [employer] video pediatric colonoscope was then entered into the rectum and advanced easily to the cecum. Once in the cecum, after copious irrigation and suctioning, I did get a good visualization of the entire cecum including the appendiceal orifice, which appeared normal. The ileocecal valve appeared normal. The terminal ileum was cannulated and appeared normal. The scope was withdrawn back in the colon. The scope was then slowly withdrawn, assessing all mucosal surfaces carefully. Preparation throughout the colon was initially somewhat limited by a fair amount of liquid stool, but after a lot of suctioning and a lot of irrigation, I was able to achieve a good visualization of the colon. I did not visualize any sign of polyps, colitis, nor angiodysplasias. There was a mild amount of sigmoid diverticulosis. In the rectum, scope was retroflexed visualizing internal hemorrhoids, but no other pathology. The rectal mucosa appeared normal. The scope was straightened out and withdrawn from the patient. He tolerated the procedure well and was returned to the recovery area in stable condition. IMPRESSION: 1. Sigmoid diverticulosis. 2. Internal hemorrhoids. PLAN: Even though the examination was negative and I do feel I obtained good visualization after a lot of irrigation and suctioning, I would recommend a repeat colonoscopy for further screening within 3 years. I do not think any further evaluation at this time is required given what I feel was adequate visualization. He will, otherwise, see me on a p.r.n. basis. This has been discussed with his . MD LUIS MIGUEL Real/MARVIN / [id number]
== END 2023-08-12 16:41 | disposition home or self-care (01) ==
PROVIDERS: PCP Hospitalist; Visit Provider Internal Medicine
PROC: 0DJD8ZZ Inspection of Lower Intestinal Tract, Via Natural or Artificial Opening Endoscopic (ICD-10-PCS; CPT 45378; principal; 2023-08-12 14:30)
DX: R19.5 Other fecal abnormalities (principal); K57.30 Diverticulosis of large intestine without perforation or abscess without bleeding; K64.8 Other hemorrhoids; K21.9 Gastro-esophageal reflux disease without esophagitis; I10 Essential (primary) hypertension; E78.5 Hyperlipidemia, unspecified; F32.A Depression, unspecified; E11.9 Type 2 diabetes mellitus without complications; Z87.442 Personal history of urinary calculi; Z79.4 Long term (current) use of insulin; Z79.85 Long-term (current) use of injectable non-insulin antidiabetic drugs; Z79.899 Other long term (current) drug therapy; Z88.2 Allergy status to sulfonamides; Z88.8 Allergy status to other drugs, medicaments and biological substances
CPT/HCPCS: 45378; 82947; J2704

== ENCOUNTER 2023-10-11 08:58 | Emergency (ER) | payer MEDICARE, SELFPAY ==
--- NOTE | 2023-10-11 | ECG_ITS ---
Test Reason : cp Blood Pressure : / mmHG Vent. Rate : 069 BPM Atrial Rate : 069 BPM P-R Int : 162 ms QRS Dur : 094 ms QT Int : 462 ms P-R-T Axes : 022 -23 -41 degrees QTc Int : 495 ms Normal sinus rhythm Minimal voltage criteria for LVH, may be normal variant ( R in aVL ) T wave abnormality, consider anterior ischemia Prolonged QT Abnormal ECG No previous ECGs available Referred By: Generic ED Physician Electronically Signed By:CANDACE SHIPLEY MD
--- NOTE | ~2023-10-11 | US_ITS ---
EXAMINATION: US VENOUS ULTRASOUND WITH DOPPLER LOWER EXTREMITY, BILATERAL CLINICAL INFORMATION: Leg pain. History of pulmonary embolism. COMPARISON: Right lower extremity Doppler study October 09, 2016. TECHNIQUE: Ultrasound of the deep veins is performed from the hip to the calf with compression sonography and color and pulse Doppler assessment. Spectral analysis with color-flow imaging is performed. FINDINGS: RIGHT: There is normal venous compression and respiratory variation and augmented flow. The visualized common femoral vein, superficial femoral vein, profunda femoral vein, popliteal vein, and the trifurcation region shows no evidence of deep venous thrombosis. There is no significant popliteal fossa cyst. LEFT: There is deep vein thrombosis left lower extremity. Occluding thrombus present in the popliteal vein extending into the proximal peroneal vein in the upper calf. The deep veins from the groin through the distal thigh are patent. There is no significant popliteal fossa cyst. US/US venous duplex LE BI IMPRESSION: 1. No DVT demonstrated in the right lower extremity. 2. Deep vein thrombosis in the left lower extremity. This critical result was discussed with Keegan BANDA on 10/11/2023, 4:15 PM and it was ascertained that the content and urgency of the report was understood at the time of direct communication.
[2023-10-11 09:43] VITALS: BP 167/95; PULSE 69; RESP 18; TEMP 36.8; O2SAT 96
[2023-10-11 13:27] LABS: MANUAL DIFF FLAG NO
[2023-10-11 13:31] LABS: Basophils Absolute Auto 0.1 X10*3/uL (0.0-0.2); Basophils Percent Auto 0.8 % (0-2); Eosinophils Absolute Auto 0.2 X10*3/uL (0.0-0.4); Eosinophils Percent Auto 2.9 % (0-4); Hematocrit 46.4 % (42.0-52.0); Hemoglobin 16.3 g/dl (14.0-18.0); Imm Gran Abs Auto 0.04 X10*3/uL (0.00-0.03); Imm Gran Pct Auto 0.6 % (0.0-0.4); Lymphocytes Absolute Auto 1.7 X10*3/uL (1.2-4.9); Lymphocytes Percent Auto 25.9 % (20-40); Mean Corpuscular HGB Conc 35.1 g/dl (31.0-36.0); Mean Corpuscular Volume 88.4 fL (80.0-98.0); Mean Platelet Volume 9.8 fL (9.4-12.4); Monocytes Absolute Auto 0.5 X10*3/uL (0.1-1.2); Monocytes Percent Auto 7.1 % (2-11); Neutrophils Percent Auto 62.7 % (45-73); Platelet Count 223 X10*3/uL (160-400); Red Blood Count 5.25 X10*6/uL (4.60-5.80); Red Cell Distribution Width 13.2 % (11.0-16.0); White Blood Count 6.5 X10*3/uL (4.8-10.8)
--- NOTE | 2023-10-11 13:35 | ED.GENADULT ---
HPI - General Adult General Chief complaint: Dyspnea Stated complaint: 2 Blood Clots In Lung Time Seen by Provider: 10/11/23 13:11 Source: patient and family ( ) Mode of arrival: ambulatory Limitations: no limitations History of Present Illness HPI narrative: 72-year-old male history of diabetes, hyperlipidemia, anxiety/depression, history of VTE ( last diagnosed [facility]eter[facility] at [facility]) presents w/ sob on exertion and known PE to b/l main pulmonary arteries. Patient reports he was seen at [facility] last night and was told he had a very large pulmonary embolism he was given a blood thinner advised to go to [facility] he refused to go there, he was admitted at [place] and then patient left against medical advice. He tells me that they gave him a 30 day supply of Eliquis. He returns here today requesting an echocardiogram, states he is not willing to be admitted regardless of the results. He just wants to get it and then go home. No hx of hypercoagulable d/o. Denies cp, fevers, chills, nausea, vomiting, abd pain, GARCIA, vision changes Related Data Home Medications ?Medication ?Instructions ?Recorded ?Confirmed multivitamin 1 cap PO DAILY 04/26/20 07/11/23 dulaglutide 1.5 mg/0.5 mL 1 subcut QWEEK 08/12/23 [facility] Previous Rx's ?Medication ?Instructions ?Recorded blood sugar diagnostic ([employer] #3 boxes 08/02/20 Lite Strips) cyanocobalamin (vitamin B-12) 1,000 mcg PO DAILY #30 caps 01/18/22 1,000 mcg capsule fluoxetine 20 mg capsule 40 mg (2 x 20 mg) PO DAILY #180 07/09/22 caps flash glucose scanning reader #1 ea 12/07/22 (FreeStyle Nori 2 [place]) flash glucose sensor ([employer] ([employer]Style #6 kits 12/07/22 Nori 2 Sensor kit) metformin 1,000 mg tablet 1,000 mg PO BID 90 days #180 tabs 12/16/22 atorvastatin 40 mg tablet 40 mg PO DAILY 90 days #90 tabs 02/19/23 amlodipine 2.5 mg tablet 2.5 mg PO DAILY 90 days #90 tabs 05/18/23 folic acid 1 mg tablet 1 mg PO DAILY 90 days #90 tabs 06/18/23 tirzepatide 7.5 mg/0.5 mL 7.5 mg (0.5 mL) subcut QWEEK #2 mL 09/02/23 subcutaneous pen injector ([place]) losartan 50 mg tablet 50 mg PO DAILY #90 tabs 09/09/23 apixaban 5 mg (74 tabs) tablets in 5 mg PO BID #74 ea 10/11/23 a dose pack (Eliquis DVT-PE Treat 30D Start) Allergies Allergy/AdvReac Type Severity Reaction Status Date / Time lisinopril Allergy Unknown cough Verified 10/11/23 09:50 Sulfa (Sulfonamide Allergy Unknown Unknown Verified 10/11/23 09:50 Antibiotics) DONAL Inhibitors AdvReac Intermediate COUGH Verified 10/11/23 09:50 [DONAL INHIBITORS] jardiance AdvReac Intermediate weakness Uncoded 07/11/23 08:42 Review of Systems Review of Systems: Yes all other systems are reviewed and are negative PMFSH Past Medical History Attestation statement: The following information was validated with the patient. Source: old records reviewed and nursing notes reviewed Medical History Adult general medical exam Screening for prostate cancer Diabetic 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 associated with type 2 diabetes mellitus senior care (current) use of insulin Vitamin D deficiency Carpal tunnel syndrome, right Laceration of thumb, right, complicated CKD (chronic kidney disease) stage 3, GFR 30-59 ml/min Benign esophageal stricture Fracture of right heel History of renal calculi Hypertension Hypercholesterolemia Obesity (BMI 30-39.9) Obstructive sleep apnea History of pulmonary embolism Anxiety and depression Type 2 diabetes mellitus with hyperglycemia Surgical History History of colonoscopy Family History Family History Father Hypertension CVD (cardiovascular disease) Prostate enlargement Mother No problems noted. Family/Other Diabetes Social History Social History Housing: House Alcohol intake: current Alcohol intake frequency: holidays/special occasions only Patient Tobacco Use Status: Never used Tobacco e-Cigarette/Vaping Use: Never Used Second Hand Smoke Exposure: No service: No Current occupational status: retired Cognitive needs: No Hearing needs: No Vision needs: Yes Physical Exam ED Vital Signs: Vital Signs - 24 hr 10/11/23 09:43 10/11/23 14:11 10/11/23 15:54 Temperature 98.2 F 98.7 F Pulse Rate 69 64 65 Respiratory Rate 18 16 19 Blood Pressure 167/95 H 168/89 H 162/90 H Pulse Oximetry 96 95 94 Oxygen Delivery Method Room Air Room Air Room Air 10/11/23 15:57 Temperature 98.7 F Pulse Rate 65 Respiratory Rate 19 Blood Pressure 162/90 H Pulse Oximetry 94 Oxygen Delivery Method Room Air BMI result Body Mass Index 30.0 vss Appearance: Alert.? Oriented X3.? No acute distress.? Patient well-appearing Head: Normocephalic, atraumatic, no step-offs or deformities Eyes: Pupils equal, round and reactive to light.? Neck: Normal inspection.? Neck supple.? CVS: Normal heart rate and rhythm.? Pulses normal.? Respiratory: No respiratory distress.? Breath sounds normal.? Abdomen: Soft and nontender.? Skin: Skin warm and dry.? Normal skin color.? Normal skin turgor.? Extremities: No lower extremity edema.? No calf ttp. 5/5 strength to bilateral upper and lower extremities Neuro: Oriented X 3.? No motor deficit.? No sensory deficit. CN 2-12 intact Course Reevaluation(s) Reevaluation #1: CBC no acute findings . Chemistry slight jamal appears to be around patients baseline. Glucose elevated will give insulin at this time. Trop 22.4 likely secondary to PE second trop pending. EKG non ischemic however prolongued QTC. My attending ordered b/l LE US. Still pending Time: 14:20 Reevaluation #2: negative delta. US pending. Time: 15:08 Reevaluation #3: US preliminary reading LLE clot --> patient aware of finding. Final read pending. Again patient states he doesnt want admisison. Time: 16:07 Additional Reevaluation(s): Educated patient on diagnosis and treatment plan, answered all question, patient verbalizes understanding. At this time patient will be discharged home, advised to return with new or worsening symptoms. Educated on worrisome signs and symptoms and when to return. He will be leaving against medical advice. Medications Administered Discontinued Medications Generic Name Dose Route Start Last Admin Trade Name Yenifer PRN Reason Stop Dose Admin Enoxaparin Sodium 100 mg 10/11/23 13:59 10/11/23 14:08 Enoxaparin Sodium 100 Mg/Ml Syringe SUBCUT 10/11/23 14:00 100 mg ONCE ONE Administration Medical Decision Making Medical Decision Making [facility] Narrative: 1408 72-year-old male presents with known blood clot, left AMA yesterday from [facility], after being told he should be at [facility] which he also refused to go to. Presents with dyspnea on exertion x1 week. History of multiple PEs not on chronic anticoagulation. PE benign well appearing hemodynamically stable. hx and pe concerning for PE w/ right heart strain w/o adequate treatment. No signs of ards, IL or cardiomopathy at this time Plan- labs, my attending ordered imaging Patient adamant that he wants to leave and will not stay for results or specialist eval consult. Reporting he doesn't care what the echo results are he still wont stay. He refuses anytype of overnight admission or further intervention he just wants an echo and to go home. Discussed this case w/ my attending who agrees no reason for echo if patient is leaving and we are unable to treat what it shows or admit patient. Ademant he wont stay RN Ira Olvera at bedside as witness to me speaking with patient and explained risks of ARDS, stroke and he says I dont care its my choice Discussed with MD director of ED- Dr. Fox who agrees no reason for STAT echo if patient is leaving regardless of results. Differential Diagnosis Differential Diagnoses: The differential diagnosis associated with the presentation includes hx and pe concerning for PE w/ right heart strain w/o adequate treatment. No signs of ards, IL or cardiomopathy at this time Admission/Observation Consideration of admission/observation: Escalation of care including admission/observation considered Needed but patient refusing Consult Healthcare Provider Management of the patient was discussed with: Drywall Installer Reviewed [facility] records from last night Lab Data [facility] Lab Attestation statement: I reviewed the patient's lab results. 10/11/23 13:20 10/11/23 13:20 Labs: Lab Results 10/11/23 10/11/23 10/11/23 Range/Units 13:20 13:25 14:29 WBC 6.5 (4.8-10.8) X10*3/uL RBC 5.25 (4.60-5.80) X10*6/uL Hgb 16.3 (14.0-18.0) g/dl Hct 46.4 (42.0-52.0) % MCV 88.4 (80.0-98.0) fL MCH 31.0 (27.0-33.0) pg MCHC 35.1 (31.0-36.0) g/dl RDW 13.2 (11.0-16.0) % Plt Count 223 (160-400) X10*3/uL MPV 9.8 (9.4-12.4) fL Immature Gran % (Auto) 0.6 H (0.0-0.4) % Neut % (Auto) 62.7 (45-73) % Lymph % (Auto) 25.9 (20-40) % [place] % (Auto) 7.1 (2-11) % Eos % (Auto) 2.9 (0-4) % Baso % (Auto) 0.8 (0-2) % Lymph # (Auto) 1.7 (1.2-4.9) X10*3/uL [place] # (Auto) 0.5 (0.1-1.2) X10*3/uL Eos # (Auto) 0.2 (0.0-0.4) X10*3/uL Baso # (Auto) 0.1 (0.0-0.2) X10*3/uL Abs Immat Gran (auto) 0.04 H (0.00-0.03) X10*3/uL Absolute Neuts (auto) 4.0 (2.0-8.3) x10*3/uL Absolute Nucleated RBC 0.000 (0.0-0.012) X10*3/uL Nucleated RBC % (auto) 0.0 (0.0-0.2) /100WBC PT 12.0 (11.1-13.3) SEC INR 1.0 (0.9-1.1) Sodium 142 (135-145) mmol/L Potassium 4.4 (3.3-5.1) mmol/L Chloride 110 H (96-108) mmol/L Carbon Dioxide 26 (22-29) mmol/L Anion Gap 10 L (12-20) BUN 19 H (9-16) mg/dL Creatinine 1.29 (0.5-1.4) mg/dL Estim Creat Clear Calc 67.1 Estimated GFR 55 Random Glucose 242 H (60-115) mg/dL Calcium 9.8 D (8.4-10.2) mg/dL Total Bilirubin 0.7 (0.0-1.0) mg/dL AST 16 (5-37) U/L ALT 15 (0-40) U/L Alkaline Phosphatase 133 H (39-117) U/L Troponin I High Sens 22.4 21.6 (<3.5-35.0) ng/L B-Natriuretic Peptide 83 (<100) pg/mL Total Protein 7.8 (6.5-8.0) g/dL Albumin 4.0 (3.5-5.0) g/dL Independent Interpretation I performed an independent interpretation of an: EKG (Vent. Rate : 069 BPM Atrial Rate : 069 BPM P-R Int : 162 ms QRS Dur : 094 ms QT Int : 462 ms P-R-T Axes : 022 -23 -41 degrees QTc Int : 495 ms Normal sinus rhythm Minimal voltage criteria for LVH, may be normal variant ( R in aVL ) T wave abnormality, consider anterior) and CT Scan (-results reviewed from [facility] ( see below) ) Interpretation: CT showing ?extensive pulmonary embolism in the right and left main pulmonary arteries extending to segmental and subsegmental branches of all lobes. Dilation of the right ventricle compared to left ventricle suggesting right heart strain. Few scattered pulmonary nodules measuring 2 mm or unchanged from 2019 unlikely benign. Agreed with [facility] report Dr [facility] Impression Discussion of test interpretation with radiology: I have reviewed the radiologist's reading. Independent Historian Clinical information obtained from an independent historian. History obtained from or confirmed by: Spouse External Record Review External record reviewed: Inpatient record, Office record, Outpatient record, Prior outpatient labs, Prior outpatient radiology, Primary care record and Outside ED record Prescription Management Patient was dc with 30 days of eliquis by ciaran is going to pick it up now Dr. Gardiner ordered lovenox for now Chronic Conditions Patient?s care impacted by: Diabetes, Hypertension and Other (HLD ) Critical Care Time Critical Care Time Critical Care Time: No Discharge Plan Discharge Clinical Impression: Pulmonary embolism, Left against medical advice, DVT (deep venous thrombosis) Patient Disposition: Left Against Medical Advice Instructions: Against Medical Advice (ED), Blood Thinners (ED) Additional Instructions: Take your medications as prescribed. If you were prescribed antibiotics today, it is important that you take your medication to their entirety, do not skip any doses, do not finish them early. Follow-up with your primary care provider this week. Return to the emergency department with new or worsening symptoms. Such as fevers, chills, chest pain, shortness of breath, nausea, vomiting, dizziness, headache, vision changes, lethargy In case of emergency call 911 Take your Eliquis as prescribed by Ceci Arias Patient decided to leave against medical advice. I took the time to go over risks of leaving against medical advice including , stroke. Patient verbalizes understanding of this. Advised them to come back if they change their mind. Prescriptions: New Eliquis DVT-PE Treat 30D Start 5 mg (74 tabs) tablets,dose pack 5 mg PO BID Qty: 74 0RF No Action fluoxetine 20 mg capsule 40 mg PO DAILY Qty: 180 1RF metformin 1,000 mg tablet 1,000 mg PO BID 90 Days Qty: 180 3RF atorvastatin 40 mg tablet 40 mg PO DAILY 90 Days Qty: 90 2RF amlodipine 2.5 mg tablet 2.5 mg PO DAILY 90 Days Qty: 90 2RF folic acid 1 mg tablet 1 mg PO DAILY 90 Days Qty: 90 2RF Mounjaro 7.5 mg/0.5 mL pen injector 7.5 mg subcut QWEEK Qty: 2 0RF losartan 50 mg tablet 50 mg PO DAILY Qty: 90 1RF Trulicity 1.5 mg/0.5 mL pen injector 1 subcut QWEEK multivitamin Capsule 1 cap PO DAILY (DME) FreeStyle Lite Strips Strip See Rx Instructions .ROUTE .MEDSUPPLY Qty: 3 3RF Rx Instructions: As directed check the BS QAC TID cyanocobalamin (vitamin B-12) 1,000 mcg capsule 1,000 mcg PO DAILY Qty: 30 3RF (DME) FreeStyle Nori 2 Sensor Kit See Rx Instructions .ROUTE .MEDSUPPLY Qty: 6 0RF Rx Instructions: As directed (DME) FreeStyle Nori 2 [place] Misc See Rx Instructions .ROUTE .MEDSULY Qty: 1 0RF Rx Instructions: As directed Referrals: Pearl Álvarez MD [Primary Care Provider] - 2 days Stand Alone Forms: Against Medical Advice Interventions: ED Discharge Assessment Last Done: 10/11/23 15:57 Print Language: Bulgarian
[2023-10-11 13:44] LABS: Alanine Aminotransferase 15 U/L (0-40); Alkaline Phosphatase 133 U/L (39-117); Anion Gap 10 (12-20); Aspartate Amino Transferase 16 U/L (5-37); Bilirubin Total 0.7 mg/dL (0.0-1.0); Blood Urea Nitrogen 19 mg/dL (9-16); Calcium 9.8 mg/dL (8.4-10.2); Carbon Dioxide 26 mmol/L (22-29); Chloride 110 mmol/L (96-108); Creatinine Clr Calc Pharmacy 67.1; Estimated Glomerular Filt Rate 55; Glucose Random 242 mg/dL (60-115); Potassium 4.4 mmol/L (3.3-5.1); Sodium 142 mmol/L (135-145); Total Protein 7.8 g/dL (6.5-8.0)
[2023-10-11 13:50] LABS: B Type Natriuretic Peptide 83 pg/mL (<100)
[2023-10-11 13:51] LABS: Troponin-I High Sensitivity 22.4 ng/L (<3.5-35.0)
[2023-10-11] MEDS: Enoxaparin Sodium 100 MG/ML SYRINGE SUBCUT (14:08)
[2023-10-11 14:11] VITALS: BP 168/89; PULSE 64; RESP 16; O2SAT 95
[2023-10-11 14:53] LABS: Troponin-I High Sensitivity 21.6 ng/L (<3.5-35.0)
[2023-10-11 15:54] VITALS: BP 162/90; PULSE 65; RESP 19; TEMP 37.1; O2SAT 94
[2023-10-11 15:57] VITALS: BP 162/90; PULSE 65; RESP 19; TEMP 37.1; O2SAT 94
== END 2023-10-11 16:27 | disposition left against medical advice (07) ==
PROVIDERS: Physician Assistant; Physician Assistant Medical; Emergency Provider Emergency Medicine; PCP Internal Medicine
DX: I26.99 Other pulmonary embolism without acute cor pulmonale (principal); I82.402 Acute embolism and thrombosis of unspecified deep veins of left lower extremity; E11.65 Type 2 diabetes mellitus with hyperglycemia; E11.22 Type 2 diabetes mellitus with diabetic chronic kidney disease; N18.30 Chronic kidney disease, stage 3 unspecified; Z79.4 Long term (current) use of insulin; Z88.8 Allergy status to other drugs, medicaments and biological substances
CPT/HCPCS: 36415; 80053; 83880; 84484; 85025; 85610; 93005; 93970; 96372; 99284; J1650

== ENCOUNTER → 2023-10-14 08:32 | Outpatient (REF) | payer MEDICARE, SELFPAY ==
--- NOTE | 2023-10-14 08:34 | CA_ITS ---
Transthoracic Echocardiogram Patient (Last, First, Middle): Donald Fernandes, Gender: Male Date of : 1950 Age: 72 Procedure Date: 10/14/2023 Procedure Type: Transthoracic Echocardiogram Location: OP Height: 187.96 cm Weight: 104.33 kg BSA: 2.31 m2 Heart Rate: bpm BP: 146 / 82 mmHg Fountain Manager: JOSSELINE Referring MD: Pearl Álvarez MD Retort Furnace Helper: Sabas Zee MD Symptoms: I26.99 - Other pulmonary embolism without acute cor pulmonale Study Quality: Adequate ECG Rhythm: Sinus Conclusions: - 1. Normal LV ejection fraction 55-60% with grade 1 diastolic dysfunction 2. Trace aortic regurgitation 3. Mildly dilated ascending aorta at 4.1 cm 4. No gross pericardial effusion Findings Left Ventricle Normal left ventricular size, thickness, and systolic function. The visually estimated ejection fraction is between 55-60%. Spectral Doppler is indicative of an impaired relaxation filling pattern. E/E prime ratio is <8, consistent with normal filling pressures. Evidence suggests grade I (mild) diastolic dysfunction. Peak GLS is -13.4%, which is moderately reduced. Right Ventricle Normal right ventricular cavity size and systolic function. Atria The left atrium is likely dilated. There is no evidence of interatrial shunt. The right atrium is normal in size. Aortic Valve There is mild calcification of the aortic valve. There is no aortic valve stenosis. There is trace (trivial) aortic valve regurgitation. Mitral Valve There is mild anterior and posterior mitral leaflet thickening. There is mild mitral annular calcification. There is trace mitral valve regurgitation. There is no mitral valve stenosis. Pulmonic Valve The pulmonic valve is likely normal. Tricuspid Valve Normal tricuspid valve structure. Tricuspid regurgitation envelope is inadequate for calculation of right ventricular systolic pressure. Normal right atrial pressure. Great Vessels The pulmonary artery was not well visualized. There is mild dilatation of the ascending aorta measuring 4.10 cm. Small plaque is seen in the sino tubular ridge. Venous The inferior vena cava is normal in size and collapses greater than 50% with inspiration. Pericardium/Pleural There is no evidence of pericardial effusion. Prior Study Comparison No prior study available for comparison. Measurements 2D Linear Measurements IVSd: 1.16 0.6-0.9/0.6-1.0 cm LVIDd: 4.74 3.9-5.3/4.2-5.9 cm LVIDd Index: 2.05 2.4-3.2/2.2-3.1 cm/m2 LVIDs: 2.95 2.0-3.6 cm LVPWd: 1.14 0.7-1.1 cm LA Diam: 4.10 2.7-3.8/3.0-4.0 cm LAIDs Index: 1.77 1.5-2.3 cm/m2 LV Mass: 252.11 67-162/88-224 g LV Mass Index: 109.14 43-95/49-115 g/m2 LVOT Diam: 2.40 3.0+(-)1.3 cm 2D Systolic Function EF 4C: 55.80 >55% EF 2C: 57.40 >55% EF BiP: 56.60 >55% Mitral Valve MV Pk E: 0.44 MV PK A: 0.76 MV Decel Time: 290.00 E/A: 0.60 E'Lateral: 5.44 E'Medial: 3.26 E/E' Med: 13.40 E/E' Lat: 8.00 PHT: 85.00 MVA PHT: 2.59 Decel [place]: 1.51 Aortic Valve AoV Pk [place]: 1.21 AoV Mn [place]: 0.86 AoV VTI: 0.28 AoV Pk Grad: 6.00 Aov Mn Grad: 3.00 GUSTAVO Cont.VTI: 2.28 LVOT LVOT Pk [place]: 0.71 LVOT Mn [place]: 0.47 LVOT VTI: 0.14 LVOT Pk Grad: 2.00 LVOT Mn Grad: 1.00 LVOT Diam: 2.40 LVOT Area: 4.52 Diastolic Function MV Pk E: 0.44 MV Pk A: 0.76 E/A: 0.60 E'Medial: 3.26 E/E' Med: 13.40 E' Laterial: 5.44 E/E' Lat: 8.00 Right Ventricle TAPSE (mm): 26.40 TVS' Bald[place]ar: 11.90 Tricuspid Valve RA Press: 3.00 Great Vessels Aorta Sinus of Valsalva: 4.06 2.0-3.[address] Ridge: 3.10 1.7-3.4 cm Ao Asc: 4.10 2.1-3.4 cm Ao Arch: 3.70 Updated in Other Vendor System with Status of Final Sabas Zee MD electronically signed on 10/14/2023 10:09:54 AM with status of Final
== END ==
LOC: HO.CARD 08:32
PROVIDERS: PCP Internal Medicine; Visit Provider Internal Medicine
DX: I26.99 Other pulmonary embolism without acute cor pulmonale (principal)
CPT/HCPCS: 93306; 93356

== ENCOUNTER → 2023-10-14 08:34 | Outpatient (BNV) | payer MEDICARE, SELFPAY | PROVIDERS: PCP Internal Medicine; Visit Provider Internal Medicine Cardiovascular Disease | DX: I35.1 Nonrheumatic aortic (valve) insufficiency (principal); I34.81 Nonrheumatic mitral (valve) annulus calcification; R93.1 Abnormal findings on diagnostic imaging of heart and coronary circulation | CPT/HCPCS: 93306; 93356 ==

== ENCOUNTER 2023-10-16 08:13 | Outpatient (AMB) | payer MEDICARE, SELFPAY ==
[2023-10-16 08:25] VITALS: BP 138/76; PULSE 74; O2SAT 98; BMI 29.9
--- NOTE | 2023-10-16 08:25 | MHC.PC.OV ---
Vital Signs 10/16/23 08:25 Height 6 ft 2 in Weight 233 lb BMI 29.9 BP 138/76 Blood Pressure Location Lt brachial Position Sitting Pulse 74 Pulse Source Pulse Oximeter Pulse Oximetry (%) 98 Oxygen Delivery Method Room Air Intake Visit Reasons: DM Allergies lisinopril Allergy (Unknown, Verified 10/16/23 08:25) cough Sulfa (Sulfonamide Antibiotics) Allergy (Unknown, Verified 10/16/23 08:25) Unknown DONAL Inhibitors [DONAL INHIBITORS] Adverse Reaction (Intermediate, Verified 10/16/23 08:25) COUGH jardiance Adverse Reaction (Intermediate, Uncoded 10/16/23 08:25) weakness Medication List - Last Reconciled 10/16/23 by Pearl Álvarez MD amlodipine 2.5 mg PO DAILY 90 days apixaban (Eliquis DVT-PE Treat 30D Start) 5 mg PO BID azithromycin (Zithromax) For 250 mg dose pack: take 500 mg today (day 1), then 250 mg for 4 days (days 2-5) PO blood sugar diagnostic (FreeStyle Lite Strips) As directed check the QAC TID cyanocobalamin (vitamin B-12) 1,000 mcg PO DAILY flash glucose scanning reader (FreeStyle Nori 2 Wayside) As directed flash glucose sensor (FreeStyle Nori 2 Sensor kit) As directed folic acid 1 mg PO DAILY 90 days losartan 50 mg PO DAILY multivitamin 1 cap PO DAILY tirzepatide (Mounjaro) 7.5 mg (0.5 mL) subcut QWEEK Tobacco use date assessed: 10/16/23 Fall risk assessment: No Falls in past year Last assessed Fall Risk: 10/16/23 Dental Screening Dental Screen Date: 10/16/23 Did you have a dental visit in the last 12 months?: Yes Did you have a dental problem in the last 6 months where you did not have access to dental care?: No Was dental information given to patient?: Patient has dentist HPI DM HPI Details 72-year-old overweight male with uncontrolled diabetes mellitus hypertension hypercholesterolemia chronic kidney disease coming in for follow-up. Review of the notes in 10/11/2023 ER visit patient was diagnosed with left lower extremity venous thromboembolism presenting with shortness of breath and bilateral pulmonary embolism patient left against medical advice and went to the [facility] patient was advised to have an echocardiogram but did not want to get admitted. Echocardiogram done 10/15/2023 Normal LV ejection fraction 55-60% with grade 1 diastolic dysfunction 2. Trace aortic regurgitation 3. Mildly dilated ascending aorta at 4.1 cm 4. No gross pericardial effusion Patient was also seen by Endocrinology continuing with Marino ruff and Basaglar at 45 units discussed about hypoglycemic episodes . Patient had recent colonoscopy due to positive Cologuard test results showing sigmoid diverticulosis advised repeat colonoscopy 3 years Patient told me that he was not taking any of the medication except for the anticoagulation and vitamin B12 and discussed that he is changing his diet he is exercising and he is drinking a lot more fluid. And declined additional medication knowing the risk of doing that. Patient also complains of cough and congestion [facility] Medical History (Updated 10/16/23 @ 09:18 by Pearl Álvarez MD) Colon cancer screening Adult general medical exam Screening for prostate cancer Diabetic 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 associated with type 2 diabetes mellitus detention (current) use of insulin Vitamin D deficiency Carpal tunnel syndrome, right Laceration of thumb, right, complicated CKD (chronic kidney disease) stage 3, GFR 30-59 ml/min Benign esophageal stricture Fracture of right heel History of renal calculi Hypertension Hypercholesterolemia Obesity (BMI 30-39.9) Obstructive sleep apnea History of pulmonary embolism Anxiety and depression Type 2 diabetes mellitus with hyperglycemia Surgical History History of colonoscopy Family History Father Hypertension CVD (cardiovascular disease) Prostate enlargement Mother No problems noted. Family/Other Diabetes Social History Housing: House Alcohol intake: current Alcohol intake frequency: holidays/special occasions only Patient Tobacco Use Status: Never used Tobacco e-Cigarette/Vaping Use: Never Used Second Hand Smoke Exposure: No service: No Current occupational status: retired Cognitive needs: No Hearing needs: No Vision needs: Yes Questionnaire PHQ-9 Over the last 2 weeks, how often have you been bothered by any of the following problems? 1. Little interest or pleasure in doing things: not at all 2. Feeling down, depressed, or hopeless: not at all 3. Trouble falling or staying asleep, or sleeping too much: not at all 4. Feeling tired or having little energy: not at all 5. Poor appetite or overeating: not at all 6. Feeling bad about yourself - or that you are a failure or have let yourself or your family down: not at all 7. Trouble concentrating on things, such as reading the newspaper or watching television: not at all 8. Moving or speaking so slowly that other people could have noticed. Or the opposite - being so fidgety or restless that you have been moving around a lot more than usual: not at all 9. Thoughts that you would be better off or of hurting yourself in some way: not at all Total score: 0 Depression Screening Interpretation: Negative Depression Screening Done: Yes Source: Developed by Drs. Balta Reyes, Estefania Singh, Hiram Driver and colleagues, with an educational alonso from [employer]. Thrive Questionnaire Date Thrive assessed: 10/16/23 I am a: Patient What is your living situation today?: I have a steady place to live Within the past 12 months, did the food you bought not last and you didn't have the money to get more?: Never true Within the past 12 months, did you worry whether your food would run out before you got money to buy more?: Never true Do you have trouble paying for medicines?: No Do you have trouble getting transportation to medical appointments?: No Do you have trouble paying your heating and electricity bill?: No Do you have trouble taking care of your child, family member or friend?: No Do you have trouble with day-to-day activities such as bathing, preparing meals, shopping, managing finances, etc.?: No Are you currently unemployed and looking for a job?: No Are you interested in more education?: No Currently or been in a relationship where the following occur: no concerns reported THRIVE Score: 0 AUDIT C Alcohol Use Questionnaire (AUDIT-C) 1. How often do you have a drink containing alcohol?: Monthly or less 2. How many drinks containing alcohol do you have on a typical day when you are drinking?: 1 or 2 3. How often do you have six or more drinks on one occasion?: Never Total Score: 1 Score Reviewed/Action Taken: No APOORVA-7 AMB Questionnaire APOORVA-7 Date APOORVA - 7 assessed: 10/16/23 Feeling nervous, anxious, or on edge: 0 = Not at all Not being able to stop or control worryin = Not at all Worrying too much about different things: 0 = Not at all Trouble relaxin = Not at all Being so restless that it is hard to sit still: 0 = Not at all Becoming easily annoyed or irritable: 0 = Not at all Feeling afraid as if something awful might happen: 0 = Not at all Total APOORVA-7 score (0-4 normal; 5-9 mild; 10-14 moderate; 15-21 severe): 0 Source: Developed by Drs. Balta Reyes, Estefania Singh, Hiram Driver and colleagues, with an educational alonso from [employer]. Physical exam (Primary Care) Vital Signs: Last Vital Signs Pulse 74 10/16/23 08:25 BP 138/76 10/16/23 08:25 Pulse Ox 98 10/16/23 08:25 Oxygen Delivery Method Room Air 10/16/23 08:25 BMI result Body Mass Index 29.9 Tobacco/Smoking Status: Tobacco use Status Tobacco use date assessed 10/16/23 10/16/23 08:27 Patient Tobacco Use Status Never used Tobacco 10/16/23 08:27 e-Cigarette/Vaping Use Never Used 10/16/23 08:27 PHQ-9: PHQ-9 Score PHQ-9: Total score 0 10/16/23 08:45 Depression Screening Interpretation: Negative Thrive Assessment: Date of Thrive Assessment Date Thrive assessed 10/16/23 10/16/23 08:27 Currently or been in a relationship where the following occur: no concerns reported Const General: alert; No acute distress Eyes Conjunctivae: conjunctivae normal Resp Auscultation: clear to auscultation bilaterally Cardio Rate: regular rate Rhythm: regular rhythm GI Inspection: Yes normal to inspection Extrem General: Yes normal to inspection and No edema Results AMB Hemoglobin A1c AMB Hemoglobin A1c 10.5 % Last Edit by Irina Casiano CMA on 10/16/23 08:39 Results Reviewed Results Reviewed: Laboratory Last Values Hgb A1c (Clinic) 10.5 % (4.0-6.0) H 10/16/23 08:27 Assessment and Plan Assessment & Plan (1) Left leg DVT: Comment: September 2023 Code(s): I82.402 - Acute embolism and thrombosis of unspecified deep veins of left lower extremity Plan: Patient presently on Eliquis (2) Pulmonary embolism: Comment: October 2023 Code(s): I26.99 - Other pulmonary embolism without acute cor pulmonale Plan: Patient has had recurrent DVT. (3) CKD (chronic kidney disease) stage 3, GFR 30-59 ml/min: Code(s): N18.30 - Chronic kidney disease, stage 3 unspecified Qualifiers: Chronic kidney disease stage 3 subtype: stage 3a (GFR 45-59) Qualified Code(s): N18.31 - Chronic kidney disease, stage 3a Plan: Keep well hydrated avoid NSAIDs (4) Hypertension: Code(s): I10 - Essential (primary) hypertension Qualifiers: Hypertension type: essential hypertension Qualified Code(s): I10 - Essential (primary) hypertension Plan: Continue with blood pressure medication. Decrease salt intake and exercise on amlodipine losartan. Patient decided to stop all his medications and wants to change his diet and exercise and fluid intake. Patient knows the consequences. (5) Hypercholesterolemia: Code(s): E78.00 - Pure hypercholesterolemia, unspecified Plan: Avoid fried foods, chicken skin, eggs, butter margarine, pastries and meat. Be it pork or beef they have a lot of cholesterol LDL goal of less than 100 and triglyceride of less than 150 (6) Obesity (BMI 30-39.9): Code(s): E66.9 - Obesity, unspecified Plan: Diet and exercise (7) Obstructive sleep apnea: Comment: cannot tolerate CPAP Code(s): G47.33 - Obstructive sleep apnea (adult) (pediatric) Plan: Discussed importance of sleep apnea treatment (8) Type 2 diabetes mellitus with hyperglycemia: Comment: eye Dr. Palomo Code(s): E11.65 - Type 2 diabetes mellitus with hyperglycemia Qualifiers: Diabetes mellitus termination clerk insulin use: with skilled nursing use Qualified Code(s): E11.65 - Type 2 diabetes mellitus with hyperglycemia; Z79.4 - detention (current) use of insulin Plan: Decrease the amount of carbohydrate intake, pasta, bread, rice and potatoes are all sugar and that is aside from all the sweet stuff, remember that fruits are good but they are Sweet also. Hemoglobin A1c goal of less than 7 patient has met with endocrinology maintained on Mounjaro, metformin a 1000 mg twice a day.could not take mounjaro.concern about memory but MMSE is 30 (9) Ascending aorta dilatation: Comment: 10/2023 4.1 cm Code(s): I77.810 - Thoracic aortic ectasia (10) Upper respiratory tract infection: Code(s): J06.9 - Acute upper respiratory infection, unspecified Orders: Orders AMB Hemoglobin A1c Today Z13.9 - Encounter for screening, unspecified Medications: New azithromycin (Zithromax) For 250 mg dose pack: take 500 mg today (day 1), then 250 mg for 4 days (days 2-5) PO 6 tabs 0RF Discontinued fluoxetine Discontinued Reason: Patient Refused 40 mg (2 x 20 mg) PO DAILY 180 caps 1RF metformin Discontinued Reason: Patient Refused 1,000 mg PO BID 90 days 180 tabs 3RF E11.65 - Type 2 diabetes mellitus with hyperglycemia, Z79.4 - termite inspector (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) use of insulin atorvastatin Discontinued Reason: Patient Refused 40 mg PO DAILY 90 days 90 tabs 2RF E78.00 - Pure hypercholesterolemia, unspecified Coding Level of Care Code Est Pt Level 4 (42717) Diagnoses Left leg DVT I82.402 Pulmonary embolism I26.99 Stage 3a chronic kidney disease N18.31 Chronic kidney disease stage 3 subtype: stage 3a (GFR 45-59) Essential hypertension I10 Hypertension type: essential hypertension Hypercholesterolemia E78.00 Obesity (BMI 30-39.9) E66.9 Obstructive sleep apnea G47.33 Type 2 diabetes mellitus with hyperglycemia, with long-term current use of insulin E11.65; Z79.4 Diabetes mellitus termination clerk insulin use: with termination clerk use Ascending aorta dilatation I77.810 Upper respiratory tract infection J06.9 Additional Codes PHQ-9 - 52571 - PHQ-9 Billing: ([id number])
== END 2023-10-16 09:08 | disposition home or self-care (01) ==
PROVIDERS: PCP Internal Medicine; Visit Provider Internal Medicine
DX: I82.402 Acute embolism and thrombosis of unspecified deep veins of left lower extremity (principal); I26.99 Other pulmonary embolism without acute cor pulmonale; I12.9 Hypertensive chronic kidney disease with stage 1 through stage 4 chronic kidney disease, or unspecified chronic kidney disease; N18.31 Chronic kidney disease, stage 3a; E11.65 Type 2 diabetes mellitus with hyperglycemia; E78.00 Pure hypercholesterolemia, unspecified; G47.33 Obstructive sleep apnea (adult) (pediatric); I77.810 Thoracic aortic ectasia; J06.9 Acute upper respiratory infection, unspecified
CPT/HCPCS: 83036; 99214

== ENCOUNTER 2024-02-02 09:04 | Emergency (ER) | payer MEDICARE, SELFPAY ==
[2024-02-02 09:25] VITALS: BP 169/82; PULSE 95; RESP 18; TEMP 36.7; O2SAT 94; BMI 31.7
[2024-02-02 09:28] LABS: Glucose, Whole Blood 507 mg/dL (60-115)
--- NOTE | 2024-02-02 09:32 | ECG_ITS ---
Test Reason : QTC CHECK Blood Pressure : / mmHG Vent. Rate : 082 BPM Atrial Rate : 082 BPM P-R Int : 158 ms QRS Dur : 094 ms QT Int : 392 ms P-R-T Axes : 027 -21 077 degrees QTc Int : 457 ms Sinus rhythm with Premature atrial complexes Minimal voltage criteria for LVH, may be normal variant ( R in aVL ) Nonspecific T wave abnormality Abnormal ECG When compared with ECG of 11-OCT-2023 09:08, Premature atrial complexes are now Present T wave inversion no longer evident in Inferior leads T wave inversion no longer evident in Anterior leads Nonspecific T wave abnormality, worse in Lateral leads Referred By: Kerline Saavedra Electronically Signed By:VALERI SANON
--- NOTE | 2024-02-02 09:49 | ED_ITS ---
HPI - General Adult General Chief complaint: Recheck/Abnormal Lab/Rx Stated complaint: High blood sugar Time Seen by Provider: 02/02/24 09:25 Source: patient, family and old records reviewed Mode of arrival: ambulatory Limitations: no limitations History of Present Illness ED Provider: CATALINA IVY narrative: 73 yo male with PMH of DVT and PE who refuses eliquis takes aspirin he doesn't like the bruising, poorly controlled DM, CKD, HTN, high cholesterol, anxiety and depression who was on basaglar insulin 50 units daily for his DM as well as metformin he does not he a DM diet or check his sugars. He has not seen endocrine since 2020. He uses more of his insulin based off symptoms and ran out 4 days ago and is not due for another Rx until 02/23. He asked [facility] to refill it but they will not. He has not asked Dr. Álvarez to help him. He has polyuria and polydipsia. He vomited yesterday. He has hx of not taking medications or following up with medical advice in past. He does not seem to want to change his regimen or check his sugars. MD complaint: hyperglycemia symptoms Onset (ago): day(s) (Saturday) Radiation: non-radiation Severity: moderate Relieving factors: none Exacerbating factors: eating Associated symptoms: nausea/vomiting Treatments prior to arrival: none Related Data Home Medications ?Medication ?Instructions ?Recorded ?Confirmed multivitamin 1 cap PO DAILY 04/26/20 10/16/23 Previous Rx's ?Medication ?Instructions ?Recorded blood sugar diagnostic (FreeStyle #3 boxes 08/02/20 Lite Strips) cyanocobalamin (vitamin B-12) 1,000 mcg PO DAILY #30 caps 01/18/22 1,000 mcg capsule flash glucose scanning reader #1 ea 12/07/22 (FreeStyle Nori 2 [place]) flash glucose sensor (FreeStyle #6 kits 12/07/22 Nori 2 Sensor kit) amlodipine 2.5 mg tablet 2.5 mg PO DAILY 90 days #90 tabs 05/18/23 folic acid 1 mg tablet 1 mg PO DAILY 90 days #90 tabs 06/18/23 tirzepatide 7.5 mg/0.5 mL 7.5 mg (0.5 mL) subcut QWEEK #2 mL 09/02/23 subcutaneous pen injector ([place]ino) losartan 50 mg tablet 50 mg PO DAILY #90 tabs 09/09/23 apixaban 5 mg (74 tabs) tablets in 5 mg PO BID #74 ea 10/11/23 a dose pack (Eliquis DVT-PE Treat 30D Start) azithromycin 250 mg tablet See Rx Instructions PO .COMPLEX #6 10/16/23 (Zithromax) tabs insulin glargine 100 unit/mL (3 50 unit (0.5 mL) subcut DAILY 30 02/02/24 mL) subcutaneous pen (Lantus days #15 mL Solostar U-100 Insulin) Allergies Allergy/AdvReac Type Severity Reaction Status Date / Time lisinopril Allergy Unknown cough Verified 02/02/24 09:28 Sulfa (Sulfonamide Allergy Unknown Unknown Verified 02/02/24 09:28 Antibiotics) DONAL Inhibitors AdvReac Intermediate COUGH Verified 02/02/24 09:28 [DONAL INHIBITORS] jardiance AdvReac Intermediate weakness Uncoded 10/16/23 08:25 Review of Systems 2 Review of Systems: Constitutional : No Fever, No Chills, No Fatigue ENT/Mouth : No sore throat, No Rhinorrhea Eyes: No Eye Pain, No Swelling, No Redness Cardiovascular : No Chest Pain, No SOB, No Dyspnea on Exertion Respiratory : No Cough, No Sputum Gastrointestinal : No Nausea, No Vomiting, No Diarrhea, No abdominal Pain Genitourinary : No Dysuria, No Urinary Frequency, No Hematuria, Musculoskeletal : No joint pain, No Myalgias, No Joint Swelling Skin : No Skin Lesions, No rash Neuro : No Weakness, No Numbness, No Dizziness, no Headache Psych : No Anxiety/Panic, No Depression Endocrine : pos Polyuria, pos Polydipsia All other systems reviewed and are negative [facility] Past Medical History Attestation statement: The following information was validated with the patient. Source: old records reviewed Medical History Colon cancer screening Adult general medical exam Screening for prostate cancer Diabetic 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 associated with type 2 diabetes mellitus FDC (current) use of insulin Vitamin D deficiency Carpal tunnel syndrome, right Laceration of thumb, right, complicated CKD (chronic kidney disease) stage 3, GFR 30-59 ml/min Benign esophageal stricture Fracture of right heel History of renal calculi Hypertension Hypercholesterolemia Obesity (BMI 30-39.9) Obstructive sleep apnea History of pulmonary embolism Anxiety and depression Type 2 diabetes mellitus with hyperglycemia Surgical History History of colonoscopy Family History Family History Father Hypertension CVD (cardiovascular disease) Prostate enlargement Mother No problems noted. Family/Other Diabetes Social History Social History Housing: House Alcohol intake: current Alcohol intake frequency: holidays/special occasions only Alcohol type: beer Patient Tobacco Use Status: Never used Tobacco Smoked in Last 30 Days: No e-Cigarette/Vaping Use: Never Used Second Hand Smoke Exposure: No Use of substances other than those prescribed or required for medical reasons: No Advance Directives: No Advance Directives Information Provided: No service: No Current occupational status: retired Cognitive needs: No Hearing needs: No Vision needs: Yes Physical Exam ED Vital Signs: Vital Signs - 24 hr 02/02/24 09:25 02/02/24 10:11 Temperature 98.1 F 98.1 F Pulse Rate 95 95 Respiratory Rate 18 18 Blood Pressure 169/82 H 169/82 H Pulse Oximetry 94 94 Oxygen Delivery Method Room Air Room Air BMI result Body Mass Index 31.7 Appearance: Alert. Oriented X3. No acute distress. Flat affect Eyes: Pupils equal, round and reactive to light. ENT: Pharynx normal. Neck: Normal inspection. Neck supple. CVS: . Pulses normal. Respiratory: No respiratory distress. Abdomen: Soft and nontender. Skin: Skin warm and dry. Normal skin color. Normal skin turgor. Extremities: No lower extremity edema. No calf ttp Neuro: Oriented X 3. No motor deficit. No sensory deficit. Course Course Course Narrative: not in DKA Medications Administered Discontinued Medications Generic Name Dose Route Start Last Admin Trade Name Freq PRN Reason Stop Dose Admin Lactated Ringer's 1,000 mls @ 999 mls/hr 02/02/24 09:32 02/02/24 10:01 Lr IV 02/02/24 10:32 999 mls/hr .Q1H1M ONE Administration Insulin Human Regular 10 unit 02/02/24 09:32 02/02/24 09:57 Insulin Regular, Human 100 Unit/Ml 10 Ml Vial IVPUSH 02/02/24 09:33 10 unit ONCE ONE Administration Medical Decision Making Medical Decision Making [facility] Narrative: 73 yo male with PMH of DVT and PE who refuses eliquis takes aspirin he doesn't like the bruising, poorly controlled DM, CKD, HTN, high cholesterol, anxiety and depression who has been managing his sugars pretty poorly with basaglar 50 units or more based off symptoms he doesn't check his blood sugar and due to increasing his dose when he feels he needs it he ran out early and hasn't had it in 4 days. Insurance won't cover it again at [facility] until Feb 23. He now has polyuria and polydipsia. He takes metformin. He is not interested in much of possible plans we have discussed such as purchasing lantus at [facility], checking blood sugars and using sliding scale short acting insulin - they now want dexcom or insulin pump but I explained this would take endocrinology and up to a week + or more since he hasn't seen endocrinology in 3 years. I am going to order fluids and IV insulin and check for DKA. Suspect lack of insulin denies infectious or ischemic symptoms Differential Diagnosis Differential Diagnoses: The differential diagnosis associated with the presentation includes poor compliance, lack of insulin Admission/Observation Consideration of admission/observation: Escalation of care including admission/observation considered declines admission for GALI and hyperglycemia Lab Data [facility] Lab Attestation statement: I reviewed the patient's lab results. 02/02/24 09:48 02/02/24 09:48 Labs: Lab Results 02/02/24 02/02/24 02/02/24 Range/Units 09:23 09:48 10:46 WBC 6.5 (4.8-10.8) X10*3/uL RBC 5.31 (4.60-5.80) X10*6/uL Hgb 16.5 (14.0-18.0) g/dl Hct 45.8 (42.0-52.0) % MCV 86.3 (80.0-98.0) fL MCH 31.1 (27.0-33.0) pg MCHC 36.0 (31.0-36.0) g/dl RDW 12.8 (11.0-16.0) % Plt Count 248 (160-400) X10*3/uL MPV 9.5 (9.4-12.4) fL Immature Gran % (Auto) 0.5 H (0.0-0.4) % Neut % (Auto) 70.8 (45-73) % Lymph % (Auto) 19.6 L (20-40) % [place] % (Auto) 6.9 (2-11) % Eos % (Auto) 1.4 (0-4) % Baso % (Auto) 0.8 (0-2) % Lymph # (Auto) 1.3 (1.2-4.9) X10*3/uL [place] # (Auto) 0.5 (0.1-1.2) X10*3/uL Eos # (Auto) 0.1 (0.0-0.4) X10*3/uL Baso # (Auto) 0.1 (0.0-0.2) X10*3/uL Abs Immat Gran (auto) 0.03 (0.00-0.03) X10*3/uL Absolute Neuts (auto) 4.6 (2.0-8.3) x10*3/uL Absolute Nucleated RBC 0.000 (0.0-0.012) X10*3/uL Nucleated RBC % (auto) 0.0 (0.0-0.2) /100WBC VBG pH 7.43 (7.32-7.43) VBG pCO2 27 mmHg VBG pO2 185 mmHg VBG HCO3 18 L (22-26) mmol/L VBG O2 Saturation 100.0 % VBG Base Excess -3.6 mmol/L Sodium 135 (135-145) mmol/L Potassium 4.5 (3.3-5.1) mmol/L Chloride 104 (96-108) mmol/L Carbon Dioxide 21 L (22-29) mmol/L Anion Gap 15 (12-20) BUN 25 H (9-16) mg/dL Creatinine 1.92 H (0.5-1.4) mg/dL Estim Creat Clear Calc 45.6 Estimated GFR 35 POC Glucose 507 H* (60-115) mg/dL Random Glucose 584 H* (60-115) mg/dL Calcium 9.8 (8.4-10.2) mg/dL Magnesium 2.1 (1.6-2.6) mg/dL Total Bilirubin 1.2 H (0.0-1.0) mg/dL Direct Bilirubin 0.3 (0.0-0.5) mg/dL AST 13 (5-37) U/L ALT 18 (0-40) U/L Alkaline Phosphatase 135 H (39-117) U/L Total Protein 7.7 (6.5-8.0) g/dL Albumin 4.1 (3.5-5.0) g/dL Lipase 48 (8-78) U/L Urine Color Yellow Urine Appearance Clear Urine pH 5.5 (5.0-9.0) Ur Specific [place] >= 1.030 H (1.005-1.025) Urine Protein Negative (Neg-Trace) mg/dL Urine Glucose (UA) >=1000 H (Negative) mg/dL Urine Ketones 15 (Negative) mg/dL Urine Blood Negative (Negative) Urine Nitrite Negative (Negative) Ur Leukocyte Esterase Negative (Negative) Urine RBC 0-2 (0-2) /HPF Urine WBC 0-5 (0-5) /HPF Ur Squamous Epith Cells 0-2 (0-2) /HPF Urine Bacteria None Seen (None Seen) Hyaline Casts 0-2 (0-2) /LPF 02/02/24 Range/Units 10:55 WBC (4.8-10.8) X10*3/uL RBC (4.60-5.80) X10*6/uL Hgb (14.0-18.0) g/dl Hct (42.0-52.0) % MCV (80.0-98.0) fL MCH (27.0-33.0) pg MCHC (31.0-36.0) g/dl RDW (11.0-16.0) % Plt Count (160-400) X10*3/uL MPV (9.4-12.4) fL Immature Gran % (Auto) (0.0-0.4) % Neut % (Auto) (45-73) % Lymph % (Auto) (20-40) % [place] % (Auto) (2-11) % Eos % (Auto) (0-4) % Baso % (Auto) (0-2) % Lymph # (Auto) (1.2-4.9) X10*3/uL [place] # (Auto) (0.1-1.2) X10*3/uL Eos # (Auto) (0.0-0.4) X10*3/uL Baso # (Auto) (0.0-0.2) X10*3/uL Abs Immat Gran (auto) (0.00-0.03) X10*3/uL Absolute Neuts (auto) (2.0-8.3) x10*3/uL Absolute Nucleated RBC (0.0-0.012) X10*3/uL Nucleated RBC % (auto) (0.0-0.2) /100WBC VBG pH (7.32-7.43) VBG pCO2 mmHg VBG pO2 mmHg VBG HCO3 (22-26) mmol/L VBG O2 Saturation % VBG Base Excess mmol/L Sodium (135-145) mmol/L Potassium (3.3-5.1) mmol/L Chloride (96-108) mmol/L Carbon Dioxide (22-29) mmol/L Anion Gap (12-20) BUN (9-16) mg/dL Creatinine (0.5-1.4) mg/dL Estim Creat Clear Calc Estimated GFR POC Glucose 382 H* (60-115) mg/dL Random Glucose (60-115) mg/dL Calcium (8.4-10.2) mg/dL Magnesium (1.6-2.6) mg/dL Total Bilirubin (0.0-1.0) mg/dL Direct Bilirubin (0.0-0.5) mg/dL AST (5-37) U/L ALT (0-40) U/L Alkaline Phosphatase (39-117) U/L Total Protein (6.5-8.0) g/dL Albumin (3.5-5.0) g/dL Lipase (8-78) U/L Urine Color Urine Appearance Urine pH (5.0-9.0) Ur Specific [place] (1.005-1.025) Urine Protein (Neg-Trace) mg/dL Urine Glucose (UA) (Negative) mg/dL Urine Ketones (Negative) mg/dL Urine Blood (Negative) Urine Nitrite (Negative) Ur Leukocyte Esterase (Negative) Urine RBC (0-2) /HPF Urine WBC (0-5) /HPF Ur Squamous Epith Cells (0-2) /HPF Urine Bacteria (None Seen) Hyaline Casts (0-2) /LPF Independent Interpretation I performed an independent interpretation of an: EKG Interpretation: Rate: 82 Rhythm: NSR [place]: left, LVH Normal P waves. Normal STEPHANIE. Normal QRS complex. ST T wave : no HUANG, inverted t waves aVL qTC: 457 prior studies: no acute ischemia The study has been interpreted contemporaneously by me. . Independent Historian Clinical information obtained from an independent historian. History obtained from or confirmed by: Spouse External Record Review External record reviewed: Inpatient record and Outpatient record Prescription Management I considered prescription management with: Other (lantus) Social Determinants Patient?s care significantly limited by Social Determinants of Health including: Other Social Determinant of Health (non compliance) Critical Care Time Critical Care Time Critical Care Time: Yes Total Critical Care Time: 40 Attestation: review of records, repeat labs, IV insulin x 2 doses, 2L of fluids I attest to this time spent taking care of the patient Discharge Plan Discharge Clinical Impression: Acute hyperglycemia, GALI (acute kidney injury) Patient Disposition: Home, Self-Care Instructions: Acute Kidney Injury (DC), Diabetic Hyperglycemia (ED) Additional Instructions: you were offered admission for elevated blood sugars as well as acute dehydration that has increased your kidney function. you can return at any time please call Dr. Álvarez tomorrow 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 you can take it today Prescriptions: New insulin glargine [Lantus Solostar U-100 Insulin] 100 unit/mL (3 mL) insulin pen 50 unit subcut DAILY 30 Days Qty: 15 0RF No Action amlodipine 2.5 mg tablet 2.5 mg PO DAILY 90 Days Qty: 90 2RF folic acid 1 mg tablet 1 mg PO DAILY 90 Days Qty: 90 2RF Mounjaro 7.5 mg/0.5 mL pen injector 7.5 mg subcut QWEEK Qty: 2 0RF losartan 50 mg tablet 50 mg PO DAILY Qty: 90 1RF Eliquis DVT-PE Treat 30D Start 5 mg (74 tabs) tablets,dose pack 5 mg PO BID Qty: 74 0RF multivitamin Capsule 1 cap PO DAILY (DME) FreeStyle Lite Strips Strip See Rx Instructions .ROUTE .MEDSUPPLY Qty: 3 3RF Rx Instructions: As directed check the BS QAC TID cyanocobalamin (vitamin B-12) 1,000 mcg capsule 1,000 mcg PO DAILY Qty: 30 3RF azithromycin [Zithromax] 250 mg tablet See Rx Instructions PO .COMPLEX Qty: 6 0RF Rx Instructions: For 250 mg dose pack: take 500 mg today (day 1), then 250 mg for 4 days (days 2-5) PO (DME) FreeStyle Nori 2 Sensor Kit See Rx Instructions .ROUTE .MEDSUPPLY Qty: 6 0RF Rx Instructions: As directed (DME) FreeStyle Nori 2 [place] Misc See Rx Instructions .ROUTE .MEDSUPPLY Qty: 1 0RF Rx Instructions: As directed Print Language: Portuguese
[2024-02-02 09:53] LABS: MANUAL DIFF FLAG NO
[2024-02-02 09:56] LABS: Venous Blood Gas Refer to POC result
[2024-02-02 09:57] LABS: VBG Base Excess -3.6 mmol/L; VBG HCO3 18 mmol/L (22-26); VBG pCO2 27 mmHg; VBG pH 7.43 (7.32-7.43); VBG pO2 185 mmHg
[2024-02-02] MEDS: Insulin Regular, Human 100 UNIT/ML 10 ML VIAL 10 UNIT IVPUSH (09:57)
[2024-02-02 10:01] LABS: Basophils Absolute Auto 0.1 X10*3/uL (0.0-0.2); Basophils Percent Auto 0.8 % (0-2); Eosinophils Absolute Auto 0.1 X10*3/uL (0.0-0.4); Eosinophils Percent Auto 1.4 % (0-4); Hematocrit 45.8 % (42.0-52.0); Hemoglobin 16.5 g/dl (14.0-18.0); Imm Gran Abs Auto 0.03 X10*3/uL (0.00-0.03); Imm Gran Pct Auto 0.5 % (0.0-0.4); Lymphocytes Absolute Auto 1.3 X10*3/uL (1.2-4.9); Lymphocytes Percent Auto 19.6 % (20-40); Mean Corpuscular Hemoglobin 31.1 pg (27.0-33.0); Mean Corpuscular Volume 86.3 fL (80.0-98.0); Mean Platelet Volume 9.5 fL (9.4-12.4); Monocytes Absolute Auto 0.5 X10*3/uL (0.1-1.2); Monocytes Percent Auto 6.9 % (2-11); Neutrophils Absolute Auto 4.6 x10*3/uL (2.0-8.3); Neutrophils Percent Auto 70.8 % (45-73); Platelet Count 248 X10*3/uL (160-400); Red Blood Count 5.31 X10*6/uL (4.60-5.80); Red Cell Distribution Width 12.8 % (11.0-16.0); White Blood Count 6.5 X10*3/uL (4.8-10.8)
[2024-02-02] MEDS: Lactated Ringers 1,000 ML 999 ML IV ×2 (10:01→11:42)
[2024-02-02 10:11] VITALS: BP 169/82; PULSE 95; RESP 18; TEMP 36.7; O2SAT 94
[2024-02-02 10:16] LABS: Alanine Aminotransferase 18 U/L (0-40); Albumin Level 4.1 g/dL (3.5-5.0); Alkaline Phosphatase 135 U/L (39-117); Anion Gap 15 (12-20); Aspartate Amino Transferase 13 U/L (5-37); Bilirubin Direct 0.3 mg/dL (0.0-0.5); Bilirubin Total 1.2 mg/dL (0.0-1.0); Blood Urea Nitrogen 25 mg/dL (9-16); Calcium 9.8 mg/dL (8.4-10.2); Carbon Dioxide 21 mmol/L (22-29); Chloride 104 mmol/L (96-108); Creatinine Clr Calc Pharmacy 45.6; Estimated Glomerular Filt Rate 35; Glucose Random 584 mg/dL (60-115); Lipase 48 U/L (8-78); Magnesium 2.1 mg/dL (1.6-2.6); Potassium 4.5 mmol/L (3.3-5.1); Sodium 135 mmol/L (135-145); Total Protein 7.7 g/dL (6.5-8.0)
[2024-02-02 10:54] LABS: Appearance Urine Clear; Color Urine Yellow; Glucose Urine UA >=1000 mg/dL (Negative); Leukocyte Esterase Urine Negative (Negative); Nitrite Urine Negative (Negative); PH 5.5 (5.0-9.0); Specific Gravity - Urine >= 1.030 (1.005-1.025); UMIC TRIGGER UACC YES; Urine Blood Negative (Negative); Urine Ketones 15 mg/dL (Negative); Urine Protein Negative (Neg-Trace)
[2024-02-02 10:59] LABS: Glucose, Whole Blood 382 mg/dL (60-115)
[2024-02-02 11:03] LABS: Bacteria Urine None Seen (None Seen); Hyaline Casts Urine 0-2 /LPF (0-2); RBC Urine 0-2 /HPF (0-2); Squamous Epithelial Cell Urine 0-2 /HPF (0-2); WBC Urine 0-5 /HPF (0-5)
[2024-02-02] MEDS: Insulin Regular, Human 100 UNIT/ML 10 ML VIAL IVPUSH (11:42)
[2024-02-02 11:46] VITALS: BP 177/67; PULSE 66; RESP 18; O2SAT 95
[2024-02-02 12:17] VITALS: BP 162/84; PULSE 69; RESP 16
[2024-02-02 12:41] LABS: Glucose, Whole Blood 313 mg/dL (60-115)
[2024-02-02 12:51] VITALS: BP 162/84; PULSE 69; RESP 16; TEMP 36.7
== END 2024-02-02 12:58 | disposition home or self-care (01) ==
PROVIDERS: Emergency Provider Emergency Medicine; PCP Internal Medicine
DX: E11.65 Type 2 diabetes mellitus with hyperglycemia (principal); I10 Essential (primary) hypertension; R11.2 Nausea with vomiting, unspecified; R94.31 Abnormal electrocardiogram [ECG] [EKG]; Z79.4 Long term (current) use of insulin; Z79.899 Other long term (current) drug therapy; Z86.718 Personal history of other venous thrombosis and embolism; Z79.82 Long term (current) use of aspirin
CPT/HCPCS: 36415; 80048; 80076; 81001; 82803; 82947; 83690; 83735; 85025; 93005; 96365; 96366; 96374; 96376; 99284; 99285; J7120

== ENCOUNTER → 2024-02-02 09:32 | Outpatient (BNV) | payer MEDICARE, SELFPAY | PROVIDERS: Emergency Provider Emergency Medicine; PCP Internal Medicine; Visit Provider Internal Medicine | DX: R94.31 Abnormal electrocardiogram [ECG] [EKG] (principal); I49.1 Atrial premature depolarization | CPT/HCPCS: 93010 ==

== ENCOUNTER 2024-02-26 08:30 | Outpatient (AMB) | payer MEDICARE, SELFPAY ==
--- NOTE | 2024-02-26 08:45 | MHC.PC.OV ---
Vital Signs 02/26/24 08:49 Height 6 ft 2 in Weight 243 lb BMI 31.2 BP 136/72 Blood Pressure Location Lt brachial Position Sitting Pulse 64 Pulse Source Pulse Oximeter Pulse Oximetry (%) 95 Oxygen Delivery Method Room Air Intake Visit Reasons: DM Allergies lisinopril Allergy (Unknown, Verified 02/26/24 08:50) cough Sulfa (Sulfonamide Antibiotics) Allergy (Unknown, Verified 02/26/24 08:50) Unknown DONAL Inhibitors [DONAL INHIBITORS] Adverse Reaction (Intermediate, Verified 02/26/24 08:50) COUGH jardiance Adverse Reaction (Intermediate, Uncoded 02/26/24 08:50) weakness Medication List - Last Reconciled 02/26/24 by Pearl Álvarez MD amlodipine 2.5 mg PO DAILY 90 days apixaban (Eliquis DVT-PE Treat 30D Start) 5 mg PO BID atorvastatin 40 mg PO DAILY 90 days blood sugar diagnostic (FreeStyle Lite Strips) As directed check the BS QAC TID cyanocobalamin (vitamin B-12) 1,000 mcg PO DAILY flash glucose scanning reader (FreeStyle Nori 2 Little Birch) As directed flash glucose sensor (FreeStyle Nori 2 Sensor kit) As directed folic acid 1 mg PO DAILY 90 days insulin glargine (Basaglar KwikPen U-100 Insulin) 50 units (0.5 mL) subcut QPM 30 days losartan 50 mg PO DAILY tirzepatide (Mounjaro) 7.5 mg (0.5 mL) subcut QWEEK Tobacco use date assessed: 10/16/23 Fall risk assessment: No Falls in past year Last assessed Fall Risk: 02/26/24 Dental Screening Dental Screen Date: 10/16/23 HPI DM HPI Details 73-year-old obese male with uncontrolled diabetes mellitus hypertension hypercholesterolemia chronic kidney disease history of left leg DVT and pulmonary embolism ascending aorta dilatation and obstructive sleep apnea last seen in 10/26/2023. Patient's colonoscopy is up-to-date May 2023. Review of the notes ER visit February 13 having shortness of breath. patient's Eliquis was kept for several weeks and has not taken of other medications noncompliant. CT scan concern of pulmonary embolism. Noted also in October for to be in the hospital presenting with shortness of breath CTA showing large bilateral central pulmonary embolism patient left against medical advice. 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 Family/Other Diabetes Social History Housing: House Alcohol intake: current Alcohol intake frequency: holidays/special occasions only Alcohol type: beer Patient Tobacco Use Status: Never used Tobacco Tobacco use type: Cigarette e-Cigarette/Vaping Use: Never Used Second Hand Smoke Exposure: No service: No Current occupational status: retired Cognitive needs: No Hearing needs: No Vision needs: Yes Questionnaire PHQ-9 Over the last 2 weeks, how often have you been bothered by any of the following problems? 1. Little interest or pleasure in doing things: not at all 2. Feeling down, depressed, or hopeless: not at all 3. Trouble falling or staying asleep, or sleeping too much: not at all 4. Feeling tired or having little energy: not at all 5. Poor appetite or overeating: not at all 6. Feeling bad about yourself - or that you are a failure or have let yourself or your family down: not at all 7. Trouble concentrating on things, such as reading the newspaper or watching television: not at all 8. Moving or speaking so slowly that other people could have noticed. Or the opposite - being so fidgety or restless that you have been moving around a lot more than usual: not at all 9. Thoughts that you would be better off or of hurting yourself in some way: not at all Total score: 0 Depression Screening Interpretation: Negative Depression Screening Done: Yes Source: Developed by Drs. Balta Reyes, Estefania Singh, Hiram Driver and colleagues, with an educational alonso from [employer]. Thrive Questionnaire Date Thrive assessed: 02/26/24 I am a: Patient What is your living situation today?: I have a steady place to live Within the past 12 months, did the food you bought not last and you didn't have the money to get more?: Never true Within the past 12 months, did you worry whether your food would run out before you got money to buy more?: Never true Do you have trouble paying for medicines?: No Do you have trouble getting transportation to medical appointments?: No Do you have trouble paying your heating and electricity bill?: No Do you have trouble taking care of your child, family member or friend?: No Do you have trouble with day-to-day activities such as bathing, preparing meals, shopping, managing finances, etc.?: No Are you currently unemployed and looking for a job?: No Are you interested in more education?: No Currently or been in a relationship where the following occur: No concerns reported THRIVE Score: 0 AUDIT C Alcohol Use Questionnaire (AUDIT-C) 1. How often do you have a drink containing alcohol?: Monthly or less 2. How many drinks containing alcohol do you have on a typical day when you are drinking?: 1 or 2 3. How often do you have six or more drinks on one occasion?: Never Total Score: 1 Score Reviewed/Action Taken: No APOORVA-7 AMB Questionnaire APOORVA-7 Date APOORVA - 7 assessed: 02/26/24 Feeling nervous, anxious, or on edge: 0 = Not at all Not being able to stop or control worryin = Not at all Worrying too much about different things: 0 = Not at all Trouble relaxin = Not at all Being so restless that it is hard to sit still: 0 = Not at all Becoming easily annoyed or irritable: 0 = Not at all Feeling afraid as if something awful might happen: 0 = Not at all Total APOORVA-7 score (0-4 normal; 5-9 mild; 10-14 moderate; 15-21 severe): 0 Source: Developed by Estefania Hoffman [employer], Hiram Driver and colleagues, with an educational alonso from [employer]. Physical exam (Primary Care) Vital Signs: Last Vital Signs Pulse 64 02/26/24 08:49 BP 136/72 02/26/24 08:49 Pulse Ox 95 02/26/24 08:49 Oxygen Delivery Method Room Air 02/26/24 08:49 BMI result Body Mass Index 31.2 Tobacco/Smoking Status: Tobacco use Status Tobacco use date assessed 10/16/23 02/26/24 08:46 Patient Tobacco Use Status Never used Tobacco 02/26/24 08:46 Tobacco use type Cigarette 02/26/24 08:51 e-Cigarette/Vaping Use Never Used 02/26/24 08:46 PHQ-9: PHQ-9 Score PHQ-9: Total score 0 02/26/24 09:01 Depression Screening Interpretation: Negative Thrive Assessment: Date of Thrive Assessment Date Thrive assessed 02/26/24 02/26/24 08:51 Currently or been in a relationship where the following occur: No concerns reported Const General: alert; No acute distress Eyes Conjunctivae: conjunctivae normal Resp Auscultation: clear to auscultation bilaterally Cardio Rate: regular rate Rhythm: regular rhythm GI Inspection: Yes normal to inspection Extrem General: Yes normal to inspection and No edema Results AMB Hemoglobin A1c AMB Hemoglobin A1c 12.4 % Last Edit by Irina Casiano CMA on 02/26/24 09:04 Assessment and Plan Assessment & Plan (1) Type 2 diabetes mellitus with hyperglycemia: Comment: eye Dr. Palomo Code(s): E11.65 - Type 2 diabetes mellitus with hyperglycemia Qualifiers: Diabetes mellitus correction insulin use: with long term care social worker use Qualified Code(s): E11.65 - Type 2 diabetes mellitus with hyperglycemia; Z79.4 - custodial (current) use of insulin Plan: Decrease the amount of carbohydrate intake, pasta, bread, rice and potatoes are all sugar and that is aside from all the sweet stuff, remember that fruits are good but they are Sweet also. Hemoglobin A1c of less than 7.0 patient is presently on insulin Marino Metzger (2) Obesity (BMI 30-39.9): Code(s): E66.9 - Obesity, unspecified Plan: Diet and exercise (3) Hypertension: Code(s): I10 - Essential (primary) hypertension Qualifiers: Hypertension type: essential hypertension Qualified Code(s): I10 - Essential (primary) hypertension Plan: Continue with blood pressure medication. Decrease salt intake and exercise on amlodipine 2.5 mg once a day losartan 50 mg once a day (4) Hypercholesterolemia: Code(s): E78.00 - Pure hypercholesterolemia, unspecified Plan: Avoid fried foods, chicken skin, eggs, butter margarine, pastries and meat. Be it pork or beef they have a lot of cholesterol LDL goal of less than 100 and triglyceride of less than 150 (5) CKD (chronic kidney disease) stage 3, GFR 30-59 ml/min: Code(s): N18.30 - Chronic kidney disease, stage 3 unspecified Qualifiers: Chronic kidney disease stage 3 subtype: stage 3a (GFR 45-59) Qualified Code(s): N18.31 - Chronic kidney disease, stage 3a Plan: Keep well hydrated avoid NSAIDs continue to monitor get diabetes under control get blood pressure under control get cholesterol down. (6) History of pulmonary embolism: Comment: 06/2019? 2013, 10/2023 Code(s): Z86.711 - Personal history of pulmonary embolism Plan: Continue with anticoagulation presently on Eliquis discussed the importance of taking the medication (7) Left leg DVT: Comment: September 2023 Code(s): I82.402 - Acute embolism and thrombosis of unspecified deep veins of left lower extremity Plan: Continue with Eliquis quarterly renal function test (8) Ascending aorta dilatation: Comment: 10/2023 4.1 cm Code(s): I77.810 - Thoracic aortic ectasia Plan: Continue to monitor Orders: Orders AMB Hemoglobin A1c Today Z13.9 - Encounter for screening, unspecified Comprehensive Met. Panel 3 Months I26.99 - Other pulmonary embolism without acute cor pulmonale Hemoglobin A1c 3 Months I26.99 - Other pulmonary embolism without acute cor pulmonale Free T4 (Free Thyroxine) 3 Months I26.99 - Other pulmonary embolism without acute cor pulmonale Thyroid Stimulating Hormone 3 Months I26.99 - Other pulmonary embolism without acute cor pulmonale Lipid Panel 3 Months E78.00 - Pure hypercholesterolemia, unspecified, I26.99 - Other pulmonary embolism without acute cor pulmonale Creatinine Urine 3 Months E11.65 - Type 2 diabetes mellitus with hyperglycemia, I26.99 - Other pulmonary embolism without acute cor pulmonale Microalbumin, Random (w Creat) 3 Months E11.65 - Type 2 diabetes mellitus with hyperglycemia, I26.99 - Other pulmonary embolism without acute cor pulmonale Complete Blood Count Auto Diff 3 Months I26.99 - Other pulmonary embolism without acute cor pulmonale Vitamin B12 and Folate 3 Months I26.99 - Other pulmonary embolism without acute cor pulmonale Referrals Hematology & Oncology Referral I26. - Other pulmonary embolism without acute cor pulmonale Medications: Refilled atorvastatin 40 mg PO DAILY 90 days 90 tabs 2RF E78.00 - Pure hypercholesterolemia, unspecified flash glucose scanning reader ([employer] Nori 2 Little Birch) As directed 1 ea 0RF E11.65 - Type 2 diabetes mellitus with hyperglycemia flash glucose sensor (FreeStyle Nori 2 Sensor kit) As directed 6 kits 0RF E11.65 - Type 2 diabetes mellitus with hyperglycemia folic acid 1 mg PO DAILY 90 days 90 tabs 2RF R41.3 - Other amnesia Discontinued insulin glargine (Lantus Solostar U-100 Insulin) Discontinued Reason: Duplicate 50 units (0.5 mL) subcut DAILY 30 days 15 mL 0RF azithromycin (Zithromax) Discontinued Reason: Doctor's Order For 250 mg dose pack: take 500 mg today (day 1), then 250 mg for 4 days (days 2-5) PO 6 tabs 0RF Coding Level of Care Code Est Pt Level 4 (68533) Complex EM visit Add On G2211 Diagnoses Type 2 diabetes mellitus with hyperglycemia, with long-term current use of insulin E11.65; Z79.4 Diabetes mellitus correction insulin use: with long term care social worker use Obesity (BMI 30-39.9) E66.9 Essential hypertension I10 Hypertension type: essential hypertension Hypercholesterolemia E78.00 Stage 3a chronic kidney disease N18.31 Chronic kidney disease stage 3 subtype: stage 3a (GFR 45-59) History of pulmonary embolism Z86.711 Left leg DVT I82.402 Ascending aorta dilatation I77.810 Additional Codes PHQ-9 - 01804 - PHQ-9 Billing: ([id number])
[2024-02-26 08:49] VITALS: BP 136/72; PULSE 64; O2SAT 95; BMI 31.2
== END 2024-02-26 09:20 | disposition home or self-care (01) ==
PROVIDERS: PCP Internal Medicine; Visit Provider Internal Medicine
DX: I12.9 Hypertensive chronic kidney disease with stage 1 through stage 4 chronic kidney disease, or unspecified chronic kidney disease (principal); E11.65 Type 2 diabetes mellitus with hyperglycemia; Z79.4 Long term (current) use of insulin; N18.31 Chronic kidney disease, stage 3a; I82.402 Acute embolism and thrombosis of unspecified deep veins of left lower extremity; I77.810 Thoracic aortic ectasia; E66.9 Obesity, unspecified; E78.00 Pure hypercholesterolemia, unspecified; Z86.711 Personal history of pulmonary embolism
CPT/HCPCS: 83036; 99214; G2211

== ENCOUNTER 2024-06-01 08:33 | Outpatient (REF) | payer MEDICARE, SELFPAY ==
[2024-06-01 10:18] LABS: MANUAL DIFF FLAG NO
[2024-06-01 10:44] LABS: Basophils Percent Auto 0.8 % (0-2); Eosinophils Absolute Auto 0.1 X10*3/uL (0.0-0.4); Eosinophils Percent Auto 2.7 % (0-4); Hematocrit 46.1 % (42.0-52.0); Hemoglobin 16.1 g/dl (14.0-18.0); Imm Gran Abs Auto 0.03 X10*3/uL (0.00-0.03); Imm Gran Pct Auto 0.6 % (0.0-0.4); Lymphocytes Absolute Auto 1.4 X10*3/uL (1.2-4.9); Lymphocytes Percent Auto 26.4 % (20-40); Mean Corpuscular HGB Conc 34.9 g/dl (31.0-36.0); Mean Corpuscular Volume 88.8 fL (80.0-98.0); Mean Platelet Volume 9.6 fL (9.4-12.4); Monocytes Absolute Auto 0.5 X10*3/uL (0.1-1.2); Monocytes Percent Auto 8.9 % (2-11); Neutrophils Absolute Auto 3.1 x10*3/uL (2.0-8.3); Neutrophils Percent Auto 60.6 % (45-73); Platelet Count 271 X10*3/uL (160-400); Red Blood Count 5.19 X10*6/uL (4.60-5.80); Red Cell Distribution Width 12.8 % (11.0-16.0); White Blood Count 5.2 X10*3/uL (4.8-10.8)
[2024-06-01 11:25] LABS: Alanine Aminotransferase 33 U/L (0-40); Albumin Level 3.9 g/dL (3.5-5.0); Alkaline Phosphatase 208 U/L (39-117); Anion Gap 10 (12-20); Aspartate Amino Transferase 18 U/L (5-37); Bilirubin Total 0.6 mg/dL (0.0-1.0); Blood Urea Nitrogen 14 mg/dL (9-16); Calcium 9.7 mg/dL (8.4-10.2); Carbon Dioxide 29 mmol/L (22-29); Chloride 103 mmol/L (96-108); Cholesterol 205 mg/dL (<200); Estimated Glomerular Filt Rate 44; HDL Cholesterol 51 mg/dL (>40); LDL Cholesterol Calculated 134 mg/dL (<100); Potassium 4.5 mmol/L (3.3-5.1); Sodium 137 mmol/L (135-145); Total Protein 7.8 g/dL (6.5-8.0); Triglycerides 102 mg/dL (<150)
[2024-06-01 11:30] LABS: Free T4 (Free Thyroxine) 0.87 ng/dL (0.71-1.85); Thyroid Stimulating Hormone 1.73 uIU/mL (0.32-4.0)
[2024-06-01 11:34] LABS: Folate 10.6 ng/mL (> or = 4.0); Vitamin B12 802 pg/mL (200-900)
[2024-06-01 11:48] LABS: Glucose Random 422 mg/dL (60-115)
[2024-06-01 12:23] LABS: Creatinine Urine 64.22 mg/dL; Microalbumin Urine < 5.0 mg/L
== END 2024-06-01 08:34 | disposition home or self-care (01) ==
LOC: HO.LAB 08:33
PROVIDERS: PCP Internal Medicine
DX: Z00.00 Encounter for general adult medical examination without abnormal findings (principal); I77.810 Thoracic aortic ectasia; I82.402 Acute embolism and thrombosis of unspecified deep veins of left lower extremity; I26.99 Other pulmonary embolism without acute cor pulmonale; E11.42 Type 2 diabetes mellitus with diabetic 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; E11.22 Type 2 diabetes mellitus with diabetic chronic kidney disease; I12.9 Hypertensive chronic kidney disease with stage 1 through stage 4 chronic kidney disease, or unspecified chronic kidney disease; N18.31 Chronic kidney disease, stage 3a; E11.65 Type 2 diabetes mellitus with hyperglycemia; E78.00 Pure hypercholesterolemia, unspecified; E66.9 Obesity, unspecified; G47.33 Obstructive sleep apnea (adult) (pediatric); Z79.01 Long term (current) use of anticoagulants; Z79.4 Long term (current) use of insulin
CPT/HCPCS: 36415; 80053; 80061; 82043; 82570; 82607; 82746; 83036; 84439; 84443; 85025; 96127

== ENCOUNTER 2024-06-01 08:33 | Outpatient (AMB) | payer MEDICARE, SELFPAY ==
--- NOTE | 2024-06-01 08:38 | A.OFFVIS_ITS ---
Intake Vital Signs 06/01/24 08:44 Height 6 ft 2 in Weight 237 lb BMI 30.4 BP 160/90 H Blood Pressure Location Lt brachial Position Sitting Pulse 81 Pulse Source Pulse Oximeter Pulse Oximetry (%) 98 Oxygen Delivery Method Room Air Intake Visit Reasons: TALYA [id number] Intake Note: Patient is here for an Annual Wellness Visit. Allergies lisinopril Allergy (Unknown, Verified 06/01/24 09:25) cough Sulfa (Sulfonamide Antibiotics) Allergy (Unknown, Verified 06/01/24 09:25) Unknown DONAL Inhibitors [DONAL INHIBITORS] Adverse Reaction (Intermediate, Verified 06/01/24 09:25) COUGH jardiance Adverse Reaction (Intermediate, Uncoded 06/01/24 09:25) weakness Medication List - Last Reconciled 06/01/24 by Tami Russo PA-C amlodipine 2.5 mg PO DAILY 90 days apixaban (Eliquis) 5 mg PO BID atorvastatin 40 mg PO DAILY 90 days blood sugar diagnostic (FreeStyle Lite Strips) As directed check the QAC TID cyanocobalamin (vitamin B-12) 1,000 mcg PO DAILY flash glucose scanning reader (FreeStyle Nori 2 Sapello) As directed flash glucose sensor (FreeStyle Nori 2 Sensor kit) As directed folic acid 1 mg PO DAILY 90 days insulin glargine (Basaglar KwikPen U-100 Insulin) 50 units (0.5 mL) subcut QPM 30 days losartan 50 mg PO DAILY tirzepatide (Mounjaro) 7.5 mg (0.5 mL) subcut QWEEK HPI [facility] G0439 HPI Details 73-year-old obese male with uncontrolled diabetes mellitus, hypertension, hypercholesterolemia, chronic kidney disease, history of left leg DVT and pulmonary embolism, ascending aorta dilation obstructive sleep apnea last seen 02/26/2024 coming in for annual wellness exam. Patient states he rarely takes his blood pressures at home. He does not check h is sugars at home but denies any dizziness or lightheadedness. 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 Family/Other Diabetes Social History Housing: House Alcohol intake: current Alcohol intake frequency: holidays/special occasions only Alcohol type: beer Patient Tobacco Use Status: Never used Tobacco Tobacco use type: Cigarette e-Cigarette/Vaping Use: Never Used Second Hand Smoke Exposure: No service: No Current occupational status: retired Cognitive needs: No Hearing needs: No Vision needs: Yes Questionnaire Medicare Wellness Checkup [age] What gender do you identify with?: male During the past 4 weeks, how much have you been bothered by emotional problems such as feeling anxious, depressed, irritable, sad or downhearted, and blue?: not at all During the past 4 weeks, has your physical & emotional health limited your social activities with family, friends, neighbors, or groups?: not at all During the past 4 weeks, how much bodily pain have you generally had?: no pain During the past 4 weeks, was someone available to help you if you needed & wanted help?: yes, as much as I wanted During the past 4 weeks, what was the hardest physical activity you could do for at least 2 minutes?: moderate Can you get to places out of walking distance without help? (For eg., can you travel alone on buses, taxis or drive your car?): Yes Can you go shopping for groceries or clothes without someone's help?: Yes Can you prepare your own meals?: Yes Can you do your housework without help?: Yes Because of any health problems, do you need the help of another person with your personal care needs such as eating, bathing, dressing or getting around the house?: No Can you handle your own money without help?: Yes During the past 4 weeks, how would you rate your health in general?: good During the past 4 weeks how have things been going for you?: pretty well Are you having difficulties driving your car?: no Do you always fasten your seat belt when you are in a car?: yes, usually During past 4 weeks, have you been bothered by the following: never: Falling or dizzy when standing up, Sexual problems?, Trouble eating well?, Teeth or denture problems? and Problems using the telephone? and seldom: Tiredness or fatigue? Have you fallen 2 or more times in the past year?: No Are you afraid of falling?: No Are you a smoker?: no During the past 4 weeks, how many drinks of wine, beer, or other alcoholic beverages did you have?: 2-5 drinks per week Do you exercise for about 20 minutes 3 or more times a week?: no, I usually do not exercise this much Have you been given information to help with the following?: yes: Hazards in your house that might hurt you? and yes: Keeping track of your medications? How often do you have trouble taking medicines the way you have been told to take them?: I always take medicine as prescribed How confident are you that you can control & manage most of your health problems?: very confident What is your race?: White PHQ-9 Over the last 2 weeks, how often have you been bothered by any of the following problems? 1. Little interest or pleasure in doing things: several days 2. Feeling down, depressed, or hopeless: several days 3. Trouble falling or staying asleep, or sleeping too much: several days 4. Feeling tired or having little energy: several days 5. Poor appetite or overeating: not at all 6. Feeling bad about yourself - or that you are a failure or have let yourself or your family down: not at all 7. Trouble concentrating on things, such as reading the newspaper or watching television: not at all 8. Moving or speaking so slowly that other people could have noticed. Or the opposite - being so fidgety or restless that you have been moving around a lot more than usual: not at all 9. Thoughts that you would be better off or of hurting yourself in some way: not at all Total score: 4 Depression Screening Interpretation: Negative Depression Screening Done: Yes 01189 - PHQ-9 Billing: Yes Source: Developed by Drs. Balta Reyes, Estefania Singh, Hiram Driver and colleagues, with an educational alonso from [employer]. Review of Systems Const Denies body aches, Denies fatigue, Denies fever(s), Denies frequent falls, De nies headache(s) and Denies weakness Eyes Reports no additional complaints and Denies change in vision ENT Denies dysphagia, Denies dizziness, Denies facial pain, Denies headache(s), Denies nasal congestion and Denies odynophagia Card Denies chest pain, Denies syncope, Denies irregular heart rhythm, Denies leg edema, Denies lightheadedness and Denies dyspnea Resp Denies cough and Denies dyspnea GI Denies constipation, Denies dysphagia, Denies dyspepsia, Denies diarrhea, Denies nausea, Denies odynophagia and Denies vomiting Denies dysuria, Denies urinary frequency, Denies urinary hesitancy and Denies urinary urgency Musc Denies back pain and Denies myalgias Skin/Breast Reports system reviewed and no additional complaints, except as documented Neuro Denies dizziness, Denies syncope, Denies frequent falls, Denies headache(s) and Denies weakness Psych Reports no additional complaints Endo Denies fatigue Physical Exam Vital Signs: Last Vital Signs Pulse 81 06/01/24 08:44 BP 160/90 H 06/01/24 08:44 Pulse Ox 98 06/01/24 08:44 Oxygen Delivery Method Room Air 06/01/24 08:44 BMI result Body Mass Index 30.4 Const General: cooperative, healthy appearing, comfortable and no acute distress Orientation/consciousness: patient oriented x3 HEENT Head: Yes normocephalic Ears: hearing grossly normal bilaterally, external ears normal, TM's normal bilaterally and EAC's normal General nose exam: Normal external nose present Face and sinus: Yes normal facial exam and Yes sinuses nontender Mouth: Normal oral and palatal mucosa present and tongue normal Throat: Yes posterior oropharynx normal Eyes General: appearance normal, both eyes and all related structures Conjunctivae: conjunctivae normal Pupils: Equal, round and reactive pupils present EOM: EOMs intact bilaterally and No Nystagmus present Neck Neck: Yes normal visual inspection, Yes full ROM and Yes no lymphadenopathy Chest Chest palpation & inspection: normal inspection of the chest Resp Effort & Inspection: normal respiratory effort Auscultation: clear to auscultation bilaterally, no crackles, no rales, no rhonchi, no wheezes and breath sounds present Cardio Rate: regular rate Rhythm: regular rhythm Peripheral pulses: radial pulses present and dorsalis pedis present GI Inspection: Yes normal to inspection and No Abdominal wall edema Palpation (GI): Soft to palpation, not firm and nontender Auscultation: normal bowel sounds Rectal Exam - Male: Yes deferred General: Yes no CVA tenderness Back/Spine/Pelvis Back: no CVA tenderness Skin General skin exam: no rashes or lesions noted Neuro General: patient oriented x3 Cranial nerves: Yes Equal, round and reactive pupils present, Yes Midline tongue present, Yes Ability to bilaterally elevate shoulders present and No Nystagmus present Gait exam (Neuro): Normal gait present Extrem General: Yes normal to inspection, Yes full ROM, No no pedal edema and No edema Psych Speech and movement: Normal speech and movement present Affect: normal affect Insight: Good insight present (Psych) Judgement: Good judgement present (Psych) Results AMB Hemoglobin A1c AMB Hemoglobin A1c 14.0 % Last Edit by ZAKIA Reyna on 06/01/24 09:29 14.0> Kinsey So 06/01/24 09:29 Results Reviewed Results Reviewed: Laboratory Last Values Hgb A1c (Clinic) 14.0 % (4.0-6.0) H 06/01/24 08:20 Assessment & Plan Assessment & Plan (1) Ascending aorta dilatation: Comment: 10/2023 4.1 cm Code(s): I77.810 - Thoracic aortic ectasia Plan: Continue to monitor with serial ultrasounds (2) Left leg DVT: Comment: September 2023 Code(s): I82.402 - Acute embolism and thrombosis of unspecified deep veins of left lower extremity Plan: On anticoagulation apixaban 5 mg b.i.d.. (3) Pulmonary embolism: Comment: October 2023 Code(s): I26.99 - Other pulmonary embolism without acute cor pulmonale Plan: Currently on anticoagulation with the apixaban 5 mg b.i.d. (4) Diabetic 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 associated with type 2 diabetes mellitus: Code(s): E11.42 - Type 2 diabetes mellitus with diabetic 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 Plan: Advised good control of the blood sugars. (5) CKD (chronic kidney disease) stage 3, GFR 30-59 ml/min: Code(s): N18.30 - Chronic kidney disease, stage 3 unspecified Qualifiers: Chronic kidney disease stage 3 subtype: stage 3a (GFR 45-59) Qualified Code(s): N18.31 - Chronic kidney disease, stage 3a Plan: Avoid kidney irritants such as NSAIDs and advised good control of the blood pressure and staying well hydrated. Reminded about blood work (6) Hypertension: Code(s): I10 - Essential (primary) hypertension Qualifiers: Hypertension type: essential hypertension Qualified Code(s): I10 - Essential (primary) hypertension Plan: Continue on current blood pressure medication. Avoid salt intake and encourage healthy diet and regular exercise. Blood pressure elevated on exam and has been elevated the last few visits. We will increase amlodipine to 5 mg and schedule appointment in 1 month with nurse navigator. (7) Hypercholesterolemia: Code(s): E78.00 - Pure hypercholesterolemia, unspecified Plan: Avoid foods that are high in cholesterol such as red meat, fried foods, eggs and baked goods. Triglyceride goal of less than 150 and LDL goal of less than 100. Reminded about blood work (8) Obesity (BMI 30-39.9): Code(s): E66.9 - Obesity, unspecified Plan: Healthy diet and regular exercise is encouraged. (9) Obstructive sleep apnea: Comment: cannot tolerate CPAP Code(s): G47.33 - Obstructive sleep apnea (adult) (pediatric) Plan: Not using CPAP denies symptoms. (10) Type 2 diabetes mellitus with hyperglycemia: Comment: eye Dr. Palomo Code(s): E11.65 - Type 2 diabetes mellitus with hyperglycemia Qualifiers: Diabetes mellitus ocean transportation intermediary insulin use: with usp use Qualified Code(s): E11.65 - Type 2 diabetes mellitus with hyperglycemia; Z79.4 - nursing home (current) use of insulin Plan: Decrease the amount of carbohydrates such as pasta, bread, rice, and potatoes and limit the amount of sweets. Although fruits are generally healthy they should be eaten in moderation as they are still high in sugar. Hemoglobin A1c goal of less than 7%. A1c elevated at 14% today. Patient states he does not monitor her blood pressures at Home but denies any symptoms of low blood sugar. We will trial prescribing Mounjaro 7.5 mg as he states he has been not been taking this. Advised patient to monitor blood sugars at home and please reach out to the office if Mounjaro can not be filled by pharmacy. Discussed with patient at length the risks of prolonged elevated blood sugars. Patient states he has been having a poor diet which is most likely the reason for elevated blood sugars. Discussed importance of dietary adjustment patient declining diabetic education at this time and states she knows what he should avoid. Discussed the importance of monitoring blood sugars at home however patient declines at this time. We will refer to endocrinology for further management and possible continuous glucose monitor. (11) Encounter for annual wellness exam in Medicare patient: Code(s): Z00.00 - Encounter for general adult medical examination without abnormal findings Plan: Patient is up-to-date on all recommended routine screenings and vaccinations for his age. Reminded about blood work. Alpha of care was reviewed with patient patient was provided with a written screening schedule. Healthcare proxy/ MOLST forms were reviewed with patient patient advised to bring completed forms to office to be scanned to chart Plan This note was constructed using voice recognition software. While every effort has been made to ensure accuracy and scalp specialist, still areas may have been included sometimes these areas may affect the content or meeting of the given symptoms. Total time spent caring for the patient today was 30 minutes. This includes time spent before the visit reviewing the chart, time spent during the visit, and time spent after the visit and documentation. 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 Discontinued tirzepatide (Mounjaro) Discontinued Reason: Patient no longer taking 7.5 mg (0.5 mL) subcut QWEEK 2 mL 0RF E11.65 - Type 2 diabetes mellitus with hyperglycemia, 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 amlodipine Discontinued Reason: Patient no longer taking 2.5 mg PO DAILY 90 days 90 tabs 2RF I10 - Essential (primary) hypertension Quality Reporting (2019) Depression/Bipolar (159/160/161/177) PHQ-9: Total score: 4 Coding Level of Care Code Medicare Subsequent (G0439) Diagnoses Ascending aorta dilatation I77.810 Left leg DVT I82.402 Pulmonary embolism I26.99 Diabetic 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 associated with type 2 diabetes mellitus E11.42 Stage 3a chronic kidney disease N18.31 Chronic kidney disease stage 3 subtype: stage 3a (GFR 45-59) Essential hypertension I10 Hypertension type: essential hypertension Hypercholesterolemia E78.00 Obesity (BMI 30-39.9) E66.9 Obstructive sleep apnea G47.33 Type 2 diabetes mellitus with hyperglycemia, with long-term current use of insulin E11.65; Z79.4 Diabetes mellitus ocean transportation intermediary insulin use: with usp use Encounter for annual wellness exam in Medicare patient Z00.00 Additional Codes PHQ-9 - 57219 - PHQ-9 Billing: Yes ([id number])
[2024-06-01 08:44] VITALS: BP 160/90; PULSE 81; O2SAT 98; BMI 30.4
== END 2024-06-01 09:48 | disposition home or self-care (01) ==
PROVIDERS: PCP Internal Medicine
DX: Z00.00 Encounter for general adult medical examination without abnormal findings (principal); I77.810 Thoracic aortic ectasia; I82.402 Acute embolism and thrombosis of unspecified deep veins of left lower extremity; I26.99 Other pulmonary embolism without acute cor pulmonale; E11.42 Type 2 diabetes mellitus with diabetic 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; N18.31 Chronic kidney disease, stage 3a; E11.65 Type 2 diabetes mellitus with hyperglycemia; Z79.4 Long term (current) use of insulin; I12.9 Hypertensive chronic kidney disease with stage 1 through stage 4 chronic kidney disease, or unspecified chronic kidney disease; E78.00 Pure hypercholesterolemia, unspecified; E66.9 Obesity, unspecified; G47.33 Obstructive sleep apnea (adult) (pediatric)

== ENCOUNTER 2024-06-15 07:38 | Outpatient (AMB) | payer MEDICARE, SELFPAY ==
--- NOTE | 2024-06-15 07:55 | MHC.OFFVIS ---
Vital Signs 06/15/24 07:58 Height 6 ft 2 in Weight 238 lb 5.115 oz BMI 30.6 BP 142/74 H Blood Pressure Location Rt brachial Position Sitting Pulse 78 Pulse Source Pulse Oximeter Intake Visit Reasons: Type 2 diabetes mellitus/CONF Intake Note: Patient presents today for D2MT follow up visit. Last Diabetic Eye exam: Spring 2023, has yearly appts Last Podiatry Visit: Does not see a Vocational Ed Instructor Random Glucose: 273 mg/dl HgA1c: 14.0% 06/01/24 Donations Attendant Required: No Accompanied by: Self / Same As Patient Allergies lisinopril Allergy (Unknown, Verified 06/15/24 08:01) cough Sulfa (Sulfonamide Antibiotics) Allergy (Unknown, Verified 06/15/24 08:01) Unknown DONAL Inhibitors [DONAL INHIBITORS] Adverse Reaction (Intermediate, Verified 06/15/24 08:01) COUGH tirzepatide Adverse Reaction (Intermediate, Verified 06/15/24 08:01) Nausea jardiance Adverse Reaction (Intermediate, Uncoded 06/15/24 08:01) weakness Medication List - Last Reconciled 06/15/24 by Sulma Manzo PA-C amlodipine 5 mg PO DAILY apixaban (Eliquis) 5 mg PO BID atorvastatin 40 mg PO DAILY 90 days blood sugar diagnostic (FreeStyle Lite Strips) As directed check the QAC TID cyanocobalamin (vitamin B-12) 1,000 mcg PO DAILY dulaglutide 3 mg (0.5 mL) subcut QWEEK 90 days folic acid 1 mg PO DAILY 90 days insulin glargine (Basaglar KwikPen U-100 Insulin) 50 units (0.5 mL) subcut QPM 30 days losartan 50 mg PO DAILY HPI HPI Type 2 diabetes mellitus/CONF: Details: Patient is a 73-year-old male with a significant past medical history of type 2 diabetes with hyperglycemia, chronic kidney disease, hypertension, hyperlipidemia, obesity, obstructive sleep apnea, history of DVT, history of PE presenting today to establish care in endocrinology for his diabetes. Endo: He was recently seen by his PCP and noted to have an A1c of 14. He was started on Mounjaro 7.5 mg. He states that he developed nausea with this. Discontinue the dose. He was then switch to Trulicity 3 mg weekly. took his first dose this morning. He is on 50 units of Basaglar nightly. He states he is also on metformin 1000 mg twice a day despite it not currently being on his med list. He was diagnosed with diabetes around 1989. He thinks he could be a type 1 diabetic but cannot remember. He states he remembers years ago that they told him he was possibly a type 1 diabetic. Around that time he did have diabetic Education and states he did not find it helpful because he did not want to adjust his diet. Did not tolerate Jardiance in the past cgm-does not use one. states he has never had one. discussed one was ordered over the summer but never took it. he does NOT check bs and states he does not need to because he knows it is high. hypoglycemia- has not had a low in many years and states he can feel it. He will use orange juice to correct. He does not have glucose tabs at home hyperglycemia- has sx all the time of polyuria and polydipsia. dme- states years ago he had dm education. Not interested in going back. Currently on an Arb and statin. CV: bp today in the office is 142/74. When he was at his PCP's office the other day was 160/90.. He is currently on amlodipine 5 mg and losartan 50 mg. Cholesterol is controlled with atorvastatin 40 mg. Remains anticoagulated with Eliquis 5 mg twice a day. -we did discuss that his cholesterol is not at goal. nephro: ckd appears stable. does NOT want to see a board saw runner. [facility] Medical History Anxiety and depression Colon cancer screening Adult general medical exam Screening for prostate cancer Diabetic 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 associated with type 2 diabetes mellitus nursing home (current) use of insulin Vitamin D deficiency Carpal tunnel syndrome, right Laceration of thumb, right, complicated CKD (chronic kidney disease) stage 3, GFR 30-59 ml/min Benign esophageal stricture Fracture of right heel History of renal calculi Hypertension Hypercholesterolemia Obesity (BMI 30-39.9) Obstructive sleep apnea History of pulmonary embolism Type 2 diabetes mellitus with hyperglycemia Surgical History History of colonoscopy Family History Father Hypertension CVD (cardiovascular disease) Prostate enlargement Mother No problems noted. Family/Other Diabetes Social History Housing: House Alcohol intake: current Alcohol intake frequency: holidays/special occasions only Alcohol type: beer Patient Tobacco Use Status: Never used Tobacco Tobacco use type: Cigarette e-Cigarette/Vaping Use: Never Used Second Hand Smoke Exposure: No service: No Current occupational status: retired Cognitive needs: No Hearing needs: No Vision needs: Yes Physical Exam Vital Signs: BMI result Body Mass Index 30.6 Const Orientation/consciousness: patient oriented x3 Neck Neck: Yes no lymphadenopathy Thyroid: Thyroid normal Carotids: no bruits Resp Auscultation: clear to auscultation bilaterally Cardio Rate: regular rate Rhythm: regular rhythm Heart sounds: S1 normal heart sound present and S2 normal heart sound present Peripheral pulses: dorsalis pedis present Neuro General: patient oriented x3, gait normal and no focal motor deficits Extrem General: Yes normal to inspection Office Procedures Glucose Monitoring Details Details: Aoi[employer]Coe 3+ was provided in the office. The little was downloaded. Sensor was Mobilitrix. 51460 - Glucose Monitoring, continuous Procedure code (CPT) selection complete Results Reviewed Results Reviewed: Laboratory Tests 02/26/24 06/01/24 06/01/24 08:51 08:20 10:16 Sodium Potassium Chloride Carbon Dioxide Anion Gap BUN Creatinine Estimated GFR Random Glucose Hgb A1c (Clinic) 12.4 H 14.0 H AST ALT Triglycerides Cholesterol LDL Cholesterol, Calc HDL Cholesterol Urine Creatinine 64.22 Urine Microalbumin < 5.0 06/01/24 10:17 Sodium 137 Potassium 4.5 Chloride 103 Carbon Dioxide 29 Anion Gap 10 L BUN 14 Creatinine 1.57 H Estimated GFR 44 Random Glucose 422 H* Hgb A1c (Clinic) AST 18 ALT 33 Triglycerides 102 Cholesterol 205 H LDL Cholesterol, Calc 134 H HDL Cholesterol 51 Urine Creatinine Urine Microalbumin Assessment & Plan Assessment & Plan (1) Type 2 diabetes mellitus with hyperglycemia: Code(s): E11.65 - Type 2 diabetes mellitus with hyperglycemia Category: Medical Qualifiers: Diabetes mellitus usp insulin use: with usp use Qualified Code(s): E11.65 - Type 2 diabetes mellitus with hyperglycemia; Z79.4 - nursing home (current) use of insulin Plan: More than 1 hour was spent in [id number] time today discussing the pathophysiology of type 1 and type 2 diabetes. We reviewed complications associated with diabetes including risk of blindness, amputations, stroke, heart attack, early , kidney disease etc.. We also reviewed signs and symptoms of hyper and hypoglycemia that would require emergent medical treatment. Discussed the rule of 15. Labs ordered Including C-peptide. Glucose tabs order to use as needed for hypoglycemia. I will have him continue with the metformin 1000 mg twice a day and Trulicity 3 mg weekly as he did start this today. We did discuss that he may develop some side effects as he is starting on a higher dose. If he is unable to tolerate this he will let me know but he believes that this will be completely fine. I will increase the basal insulin to 30 units twice a day. We will start him on Humalog 4 units 3 times a day with his meals. Denies history of known retinopathy. Reports having plenty of pen needles I did apply a [employer] 3+ sensor today in the office. I helped him download the little and I pared it. I explained how it works. I have ordered sensors to the pharmacy. Discussed the importance of having a backup glucometer which he does report he has but does not use. He has testing supplies at home and does not need a refill. I would like him to return in 1-2 weeks to be reassessed. Sooner if needed. Patient understands and agrees with this. (2) Hypertension: Code(s): I10 - Essential (primary) hypertension Category: Medical Qualifiers: Hypertension type: essential hypertension Qualified Code(s): I10 - Essential (primary) hypertension Plan: Continue current regimen although did review that it was a little elevated. We will rechecked in a week or 2. If still elevated may make adjustment. (3) Hypercholesterolemia: Code(s): E78.00 - Pure hypercholesterolemia, unspecified Category: Medical Plan: Discuss increasing Lipitor at next visit. (4) CKD (chronic kidney disease) stage 3, GFR 30-59 ml/min: Code(s): N18.30 - Chronic kidney disease, stage 3 unspecified Category: Medical Qualifiers: Chronic kidney disease stage 3 subtype: stage 3a (GFR 45-59) Qualified Code(s): N18.31 - Chronic kidney disease, stage 3a Plan: Offered referral to nephrology but declines. Advised to avoid NSAIDs. Discussed the importance of controlling blood sugars. Orders: Orders Islet Cell Antibody Scrn/Titer Today E11.65 - Type 2 diabetes mellitus with hyperglycemia, Z79.4 - retail branch manager (current) use of insulin Glutamic acid decarboxylase Ab Today E11.65 - Type 2 diabetes mellitus with hyperglycemia, Z79.4 - retail branch manager (current) use of insulin C Peptide Today E11.65 - Type 2 diabetes mellitus with hyperglycemia, Z79.4 - retail branch manager (current) use of insulin Medications: New metformin 1,000 mg PO BID 180 tabs 0RF insulin lispro (Humalog KwikPen (U-100) Insulin) with breakfast, lunch and supper 4 units (0.04 mL) subcut TID 15 mL 3RF glucose (Dex4 Glucose) until symptoms of low blood sugar are controlled 16 grams (4 x 4 gram) PO Q15M PRN 100 tabs 0RF hypoglycemia blood-glucose sensor (FreeStyle Nori 3 Plus Sensor device) Use daily As directed to monitor glucose 2 ea 5RF E08.29 - Diabetes mellitus due to underlying condition with other diabetic kidney complication, R80.9 - Proteinuria, unspecified, Z79.4 - nursing home (current) use of insulin Changed From insulin glargine (Basaglar KwikPen U-100 Insulin) 50 units (0.5 mL) subcut QPM 30 days 15 mL 3RF To insulin glargine (Basaglar KwikPen U-100 Insulin) 30 units (0.3 mL) subcut BID 30 days 18 mL 3RF Coding Level of Care Code New Pt Level 5 (71196) Diagnoses Type 2 diabetes mellitus with hyperglycemia, with long-term current use of insulin E11.65; Z79.4 Diabetes mellitus usp insulin use: with ceramic painter use Essential hypertension I10 Hypertension type: essential hypertension Hypercholesterolemia E78.00 Stage 3a chronic kidney disease N18.31 Chronic kidney disease stage 3 subtype: stage 3a (GFR 45-59) CPT Codes Details - CPT: 40224 - Glucose Monitoring, continuous ([id number])
[2024-06-15 07:58] VITALS: BP 142/74; PULSE 78; BMI 30.6
[2024-06-15 08:10] LABS: Glucose, Whole Blood 273 mg/dL (60-115)
--- OUTSIDE RECORDS SUMMARY | 2024-06-17 12:39 | XMS_ITS ---
Author Organization [facility] Address [address] [place] [address] Care Team Providers Care Grinding Wheel Inspector Name Role Phone Po Pearl DENT Primary Care Provider Balta Johnson [phone] REASON FOR VISIT positive cologuard test PROBLEMS Problem Type ICD Code Onset Dates Problem Status W/U Status Risk SNOMED Code Notes Problem Diverticulosis of large intestine without perforation or abscess without bleeding (K57.30) Active confirmed Diverticul ar disease of colon (358400471) Encounters Encounter Location Date Provider Diagnosis [facility] Outpatient [address] [place], [place] [phone] 08/12/2023 Balta Ricks Encounter for scre ening colonoscopy Z12.11 ; Heme + stool R19.5 ; Diverticulosis of large intestine without perforation or abscess without bleeding K57.30 and Other hemorrhoids K64.8 ASSESSMENTS Encounter Date Diagnosis Assessment Notes Treatment Notes Treatment Clinical Notes 08/12/2023 Encounter for screening colonoscopy (ICD-10 - Z12.11) 08/12/2023 Heme + stool (ICD-10 - R19.5) 08/12/2023 Diverticulosis of large intestine without perforation or abscess without bleeding (ICD-10 - K57.30) 08/12/2023 Other hemorrhoids (ICD-10 - K64.8) PLAN OF TREATMENT No Information
--- OUTSIDE RECORDS SUMMARY | 2024-06-17 12:39 | XMS_ITS ---
Author Organization [facility] Address [address] [place] [address] Care Team Providers Care Sweeper Cleaner Industrial Name Role Phone Po Pearl DENT Primary Care Provider Balta Johnson [phone] REASON FOR VISIT positive cologuard Encounters Encounter Location Date Provider Diagnosis [facility] [address] [place] [address] 11/20/2023 Balta Ricks PLAN OF TREATMENT No Information
--- OUTSIDE RECORDS SUMMARY | 2024-06-17 12:39 | XMS_ITS ---
Author Organization [facility] Address [address] [place] [address] Care Team Providers Care Promotions Coordinator Name Role Phone Po Pearl DENT Primary Care Provider Balta Johnson [phone] ALLERGIES Allergen (clinical drug ingredient) Drug/Non Drug Allergy documented on EMR Reaction Allergy Type Onset Date Status Sulfa Unknown Drug Allergy Active lisinopril Lisinopril Unknown Drug Allergy Activ e angiotensin-converting enzyme inhibitor (FN) shefali inhibitors (uncoded) Unknown Allergy Active REASON FOR VISIT Patient presents today for a positive cologuard MEDICATIONS Medication SIG (Take, Route, Frequency, Duration) Notes Start Date End Date Status Omeprazole 20 MG TAKE ONE CAPSULE BY MOUTH EVERY DAY for 90 Not-Taking Fish Oil 1000 MG 1 capsule Orally Once a day Not-Taking FLUoxetine HCl 20 MG TAKE 2 CAPSULES BY MOUTH EVERY DAY Oral for 90 Active Trulicity 0.75 MG/0.5ML INJECT 0.5ML'S SUBCUTANEOUSLY ONCE A WEEK Subcutaneous for 28 Not-Taking Aspir-81 81 MG 1 tablet Orally Once a day Active Losartan Potassium 100 MG TAKE 1 TABLET BY MOUTH EVERY DAY Oral for 30 Active Pravastatin Sodium 40 MG TAKE 1 TABLET BY MOUTH EVERY DAY Oral for 90 Active Lantus SoloStar 100 UNIT/ML INJCT 50 UNITS SUBCUTANEOUSLY ONCE DAILY Subcutaneous for 30 Active Mounjaro 5 MG/0.5ML as directed Subcutaneous STARTING LATER IN 08/2023 AFTER THE COLONOSCOPY Active metFORMIN HCl 1000 MG TAKE 1 TABLET BY MOUTH TWICE A DAY WITH MEALS Oral for 30 Active Amlodipine & Diet Manage Prod Active Folic Acid 1 MG 1 tablet Orally Once a day for 30 day(s) Active VITAL SIGNS BMI 32.05 kg/m2 08/07/2023 Blood pressure systolic 000 mm Hg 08/07/19 24 Blood pressure diastolic 00 mm Hg 024 Height 74.5 in 08/07/2023 Temperature 98.5 degrees Fahrenheit 08/07/19 24 Weight 253 lbs 08/07/2023 Encounters Encounter Location Date Provider Diagnosis [facility] [address] [place] [address] 08/07/2023 Balta Ricks Positive colorectal cancer screening using Cologuard test R19.5 ASSESSMENTS Encounter Date Diagnosis Assessment Notes Treatment Notes Treatment Clinical Notes 08/07/2023 Positive colorectal cancer screening using Cologuard test (ICD-10 - R19.5) TAKE ONLY 1/2 YOUR USUAL INSULIN THE NIGHT BEFORE THE COLONOSCOPY DO NOT TAKE THE METFORMIN THE NIGHT BEFORE NOR ON THE MORNING OF THE COLONOSCOPY DO NOT TAKE ASPIRIN FOR THREE DAYS BEFORE THE COLONOSCOPY PLAN OF TREATMENT Treatment Notes Assessment Notes Positive colorectal cancer s creening using Cologuard test TAKE ONLY 1/2 YOUR USUAL INSULIN THE NIGHT BEFORE THE COLONOSCOPY DO NOT TAKE THE METFORMIN THE NIGHT BEFORE NOR ON THE MORNING OF THE COLONOSCOPY DO NOT TAKE ASPIRIN FOR THREE DAYS BEFORE THE COLONOSCOPY Future Test Test Name Order Date COLONOSCOPY 08/07/2023 Next Appt Details Follow Up: prn, Reason: Progress Notes * Examination Category Sub-Category Detail Notes General Examination GENERAL APPEARANCE: pleasant , well nourished, well developed, in no acute distress HEAD: EYES: sclera non-icteric EARS: NOSE: THROAT: NECK/THYROID: no cervical lymphade nopathy, neck supple HEART: S1, S2 normal CHEST: LUNGS: clear to auscultatio n bilaterally ABDOMEN: normal bowel sounds, no guarding or rigidity, no guarding or rigidity, no masses palpable, soft, nontender, nondistended NEUROLOGIC: alert and oriented SKIN: nonjaundiced, no spi fidel angiomata EXTREMITIES: no edema PERIPHERAL PULSES: BACK: BREASTS: MUSCULOSKELETAL: MALE GENITOURINARY: LYMPH NODES: RECTAL EXAM: FEMALE GENITOURINARY: ORAL CAVITY: mucosa moist
--- OUTSIDE RECORDS SUMMARY | 2024-06-17 12:40 | XMS_ITS | Patient Health Record ---
Author Organization [facility] Address [address] [place] [address] Care Team Providers Care Paper Machine Tender Name Role Phone Po Pearl DENT Primary Care Provider Balta Johnson [phone] ALLERGIES Allergen (clinical drug ingredient) Drug/Non Drug Allergy documented on EMR Reaction Allergy Type Onset Date Status Sulfa Unknown Drug Allergy Active lisinopril Lisinopril Unknown Drug Allergy Activ e angiotensin-converting enzyme inhibitor (FN) shefali inhibitors (uncoded) Unknown Allergy Active RESULTS Component Value Reference Range Notes Glucose, Whole Blood Reviewed date:08/13/2023 10:55:58 AM Interpretation: Performing Lab:[address] [address] Notes/Report: Glucose, Whole Blood 330 60-115 mg/dL METER # : [id number] Glucose, Whole Blood Reviewed date:08/13/2023 10:55:51 AM Interpretation: Performing Lab:[facility], [address] [place] [phone] Notes/Report: Glucose, Whole Blood 252 60-115 mg/dL METER # : [id number] REASON FOR REFERRAL No Information MEDICATIONS Medication SIG (Take, Route, Frequency, Duration) Notes Start Date End Date Status Losartan Potassium 100 MG TAKE 1 TABLET BY MOUTH EVERY DAY Oral for 30 Active Pravastatin Sodium 40 MG TAKE 1 TABLET BY MOUTH EVERY DAY Oral for 90 Active Lantus SoloStar 100 UNIT/ML INJCT 50 UNITS SUBCUTANEOUSLY ONCE DAILY Subcutaneous for 30 Active Amlodipine & Diet Manage Prod Active Omeprazole 20 MG TAKE ONE CAPSULE BY MOUTH EVERY DAY for 90 Not-Taking Fish Oil 1000 MG 1 capsule Orally Once a day Not-Taking Mounjaro 5 MG/0.5ML as directed Subcutaneous STARTING LATER IN 08/2023 AFTER THE COLONOSCOPY Active Folic Acid 1 MG 1 tablet Orally Once a day for 30 day(s) Active FLUoxetine HCl 20 MG TAKE 2 CAPSULES BY MOUTH EVERY DAY Oral for 90 Active metFORMIN HCl 1000 MG TAKE 1 TABLET BY MOUTH TWICE A DAY WITH MEALS Oral for 30 Active Trulicity 0.75 MG/0.5ML INJECT 0.5ML'S SUBCUTANEOUSLY ONCE A WEEK Subcutaneous for 28 Not-Taking Aspir-81 81 MG 1 tablet Orally Once a day Active IMMUNIZATIONS Vaccine Route Administration Date Status Comme nts Influenza Unknown 05/08/2016 Administered Influenza Unknown 08/07/2023 Administered SOCIAL HISTORY Sex Assigned At : Social History Observation Description Sex Assigned At Unknown PROBLEMS Problem Type ICD Code Onset Dates Problem Status W/U Status Risk SNOMED Code Notes Problem Pharyngoesophageal dysphagia (R13.14) Active confirmed 33047698 Problem Gastroesophageal reflux disease, esophagitis presence not specified (K21.9) Active confirmed 177157109 Problem Esophageal ring (K22.2) Active confirmed 308964842 Problem Diverticulosis of large intestine without perforation or abscess without bleeding (K57.30) Active confirmed Diverticul ar disease of colon (063138411) VITAL SIGNS Temperature 98.5 degrees Fahrenheit 08/07/2023 Blood pressure diastolic 00 mm Hg 08/07/2023 Height 74.5 in 08/07/2023 Blood pressure systolic 000 mm Hg 08/07/2023 Weight 253 lbs 08/07/2023 BMI 32.05 kg/m2 08/07/2023 Encounters Encounter Location Date Provider Diagnosis [facility] Outpatient [address] [place] [phone] 08/12/2023 Balta Ricks Encounter for screen ing colonoscopy Z12.11 ; Heme + stool R19.5 ; Diverticulosis of large intestine without perforation or abscess without bleeding K57.30 and Other hemorrhoids K64.8 [facility] [address] [place] [phone] 07/30/2023 Balta Ricks [facility] [address] [place] [phone] 08/02/2023 Balta Ricks [facility] [address] [place] [phone] 11/20/2023 Balta Ricks [facility] [address] [place] [phone] 08/07/2023 Balta Ricks Positive colorectal cancer screening using Cologuard test R19.5 [facility] [address] [place] [phone] 07/30/2023 Balta Ricks ASSESSMENTS Encounter Date Diagnosis Assessment Notes Treatment Notes Treatment Clinical Notes 08/12/2023 Encounter for screening colonoscopy (ICD-10 - Z12.11) 08/12/2023 Heme + stool (ICD-10 - R19.5) 08/07/2023 Positive colorectal cancer screening using Cologuard test (ICD-10 - R19.5) TAKE ONLY 1/2 YOUR USUAL INSULIN THE NIGHT BEFORE THE COLONOSCOPY DO NOT TAKE THE METFORMIN THE NIGHT BEFORE NOR ON THE MORNING OF THE COLONOSCOPY DO NOT TAKE ASPIRIN FOR THREE DAYS BEFORE THE COLONOSCOPY 08/12/2023 Diverticulosis of large intestine without perforation or abscess without bleeding (ICD-10 - K57.30) 08/12/2023 Other hemorrhoids (ICD-10 - K64.8) PLAN OF TREATMENT Future Test Test Name Order Date UPPER GI ENDOSCOPY [place] DILATION OF ESOPH 09/06/2016 COLONOSCOPY 08/07/2023 Insurance Providers Payer Name Payer Address Payer Phone Subscriber Number Group Number Insured Name Patient Relationship to Insured Coverage Start Date Coverage End Date MEDICARE OF [place] [address] [place] [address] [phone] [id number] TYE HERNÁNDEZ Self - patient is the insured MED[employer] ATTN CLAIMS [address] [place] [address] [id number] TYE HERNÁNDEZ Self - patient is the insured MEDICAL (GENERAL) HISTORY Medical History History ICD Code Negative screening colonosco py 01-27-2010 except for diverticulosis and internal hemorrhoids; he also had a negative colonoscopy in 2001 at [place] Depression IDDM Hyperlipidemia Hypertension Kidney stones DVT in Left leg--had a pulmonary emnbolu s--2013 GERD and dysphagia-Distal es ophageal ring--EGD 01/2017-18mm balloon dilation; small hiatal hernia; no esophagitis nor Rodríguez's esophagus Denies [place],CVA,Lung disease,renal disease Negative sleep study Negtaive ETT + Cologuard in 2022 Surgical History Surgery Date(Month/Year) Removal of a cyst under the left arm
== END 2024-06-15 08:57 | disposition home or self-care (01) ==
PROVIDERS: PCP Internal Medicine; Visit Provider Physician Assistant
DX: E11.65 Type 2 diabetes mellitus with hyperglycemia (principal); Z79.4 Long term (current) use of insulin; I10 Essential (primary) hypertension; E78.00 Pure hypercholesterolemia, unspecified; N18.31 Chronic kidney disease, stage 3a

== ENCOUNTER 2024-06-15 07:38 | Outpatient (REF) | payer MEDICARE, SELFPAY ==
[2024-06-16 20:43] LABS: C Peptide 3.92 ng/mL (0.80-3.85)
[2024-06-19 21:42] LABS: Glutamic acid decarboxylase Ab <5 IU/mL (<5)
[2024-06-22 00:19] LABS: Islet Cell Antibody Screen NEGATIVE (NEGATIVE)
== END 2024-06-15 07:39 | disposition home or self-care (01) ==
LOC: HO.LAB 07:38
PROVIDERS: PCP Internal Medicine; Visit Provider Physician Assistant
DX: E11.65 Type 2 diabetes mellitus with hyperglycemia (principal); E11.22 Type 2 diabetes mellitus with diabetic chronic kidney disease; Z79.4 Long term (current) use of insulin; I12.9 Hypertensive chronic kidney disease with stage 1 through stage 4 chronic kidney disease, or unspecified chronic kidney disease; N18.31 Chronic kidney disease, stage 3a; E78.00 Pure hypercholesterolemia, unspecified
CPT/HCPCS: 36415; 82947; 84681; 86341; 95250; 99202

== ENCOUNTER 2024-06-29 07:38 | Outpatient (AMB) | payer MEDICARE, SELFPAY ==
[2024-06-29 07:55] VITALS: BP 142/78; PULSE 65; BMI 31.1
--- NOTE | 2024-06-29 07:55 | A.OFFVIS_ITS ---
Vital Signs 06/29/24 07:55 Height 6 ft 2 in Weight 242 lb 4.608 oz BMI 31.1 BP 142/78 H Blood Pressure Location Lt brachial Position Sitting Pulse 65 Pulse Source Pulse Oximeter Intake Visit Reasons: insulin recheck/Left vm Intake Note: Patient present today for Type 2 Diabetes Mellitus. Last Diabetic eye exam: Spring 2023 Last Podiatry Visit: Doesn't have one Random Glucose: 133 mg/dl HgA1C: 14.0% 06/01/24 Radiologist Physician Required: No Accompanied by: Self / Same As Patient Allergies lisinopril Allergy (Unknown, Verified 06/29/24 08:03) cough Sulfa (Sulfonamide Antibiotics) Allergy (Unknown, Verified 06/29/24 08:03) Unknown DONAL Inhibitors [DONAL INHIBITORS] Adverse Reaction (Intermediate, Verified 06/29/24 08:03) COUGH tirzepatide Adverse Reaction (Intermediate, Verified 06/29/24 08:03) Nausea jardiance Adverse Reaction (Intermediate, Uncoded 06/29/24 08:03) weakness Medication List - Last Reconciled 06/29/24 by Sulma Manzo PA-C amlodipine 5 mg PO DAILY apixaban (Eliquis) 5 mg PO BID atorvastatin 40 mg PO DAILY 90 days blood sugar diagnostic (FreeStyle Lite Strips) As directed check the QAC TID blood-glucose sensor (FreeStyle Nori 3 Plus Sensor device) Use daily As directed to monitor glucose cyanocobalamin (vitamin B-12) 1,000 mcg PO DAILY dulaglutide 3 mg (0.5 mL) subcut QWEEK 90 days folic acid 1 mg PO DAILY 90 days glucose (Dex4 Glucose) 16 grams (4 x 4 gram) PO Q15M PRN insulin glargine (Basaglar KwikPen U-100 Insulin) 30 units (0.3 mL) subcut BID 30 days insulin lispro (Admelog SoloStar U-100 Insulin lispro) 4 units (0.04 mL) subcut TID losartan 50 mg PO DAILY metformin 1,000 mg PO BID HPI HPI insulin recheck/Left vm: Details: Patient is a 73-year-old male with a significant past medical history of type 2 diabetes with hyperglycemia, chronic kidney disease, hypertension, hyperlipidemia, obesity, obstructive sleep apnea, history of DVT, history of PE presenting today for a follow up regarding diabetes. He last saw me a couple weeks ago for his initial visit. Endo: He was recently seen by his PCP and noted to have an A1c of 14. At our last visit he was continued on Trulicity 3 mg weekly (he has only been on this for 3 weeks), we split the Basaglar to 30 units twice a day, added lispro 4 units with meals and continued metformin 1000 mg twice a day. He was also provided a CGM. CGM-I reviewed his reader on the phone and his G mi is 7.1%. He is now in range 69%, 0% hypoglycemic and hyperglycemic 29% in 1% very hyperglycemic. -the hyperglycemia appears to be correlated with lunch, supper and a late night snack. He states that he is not actually using the lispro but does have it. Did not tolerate Jardiance in the past, Mounjaro caused nausea hypoglycemia- has not had a low in many years and states he can feel it. He will use orange juice to correct. He does not have glucose tabs at home hyperglycemia- has sx have improved significantly since our last visit dme- states years ago he had dm education. Not interested in going back. Currently on an Arb and statin. CV: bp today in the office is 142/78. He is currently on amlodipine 5 mg and losartan 50 mg. Cholesterol is controlled with atorvastatin 40 mg. Remains anticoagulated with Eliquis 5 mg twice a day. -we did discuss that his cholesterol is not at goal. nephro: ckd appears stable. does NOT want to see a personnel placement specialist. [facility] Medical History Anxiety and depression Colon cancer screening Adult general medical exam Screening for prostate cancer Diabetic 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 associated with type 2 diabetes mellitus skilled nursing (current) use of insulin Vitamin D deficiency Carpal tunnel syndrome, right Laceration of thumb, right, complicated CKD (chronic kidney disease) stage 3, GFR 30-59 ml/min Benign esophageal stricture Fracture of right heel History of renal calculi Hypertension Hypercholesterolemia Obesity (BMI 30-39.9) Obstructive sleep apnea History of pulmonary embolism Type 2 diabetes mellitus with hyperglycemia Surgical History History of colonoscopy Family History Father Hypertension CVD (cardiovascular disease) Prostate enlargement Mother No problems noted. Family/Other Diabetes Social History Housing: House Alcohol intake: current Alcohol intake frequency: holidays/special occasions only Alcohol type: beer Patient Tobacco Use Status: Never used Tobacco Tobacco use type: Cigarette e-Cigarette/Vaping Use: Never Used Second Hand Smoke Exposure: No service: No Current occupational status: retired Cognitive needs: No Hearing needs: No Vision needs: Yes Physical Exam Vital Signs: Last Vital Signs Pulse 65 06/29/24 07:55 BP 142/78 H 06/29/24 07:55 BMI result Body Mass Index 31.1 Const Orientation/consciousness: patient oriented x3 HEENT Ears: hearing grossly normal bilaterally Neck Thyroid: Thyroid normal Lymphatic: no lymphadenopathy noted Resp Auscultation: clear to auscultation bilaterally Cardio Rate: regular rate Rhythm: regular rhythm Heart sounds: S1 normal heart sound present and S2 normal heart sound present Skin General skin exam: no rashes or lesions noted Neuro General: patient oriented x3, gait normal and no focal motor deficits Results Reviewed Results Reviewed: Laboratory Last Values Glucose (Clinic) 133 mg/dL (60-115) H 06/29/24 08:05 Laboratory Tests 06/01/24 06/15/24 06/15/24 10:17 08:06 09:08 Creatinine 1.57 H Estimated GFR 44 Glucose (Clinic) 273 H Random Glucose 422 H* C-Peptide 3.92 H Triglycerides 102 Cholesterol 205 H LDL Cholesterol, Calc 134 H HDL Cholesterol 51 Islet Cell Ab Screen NEGATIVE Islet Cell Ab Titer TNP APOORVA Antibody <5 06/29/24 08:05 Creatinine Estimated GFR Glucose (Clinic) 133 H Random Glucose C-Peptide Triglycerides Cholesterol LDL Cholesterol, Calc HDL Cholesterol Islet Cell Ab Screen Islet Cell Ab Titer APOORVA Antibody Assessment & Plan Assessment & Plan (1) Diabetic 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 associated with type 2 diabetes mellitus: Code(s): E11.42 - Type 2 diabetes mellitus with diabetic 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 Category: Medical Plan: Congratulated him on this significant improvement of his blood sugars. He was provided another sensors today in the office as he has not yet heard about his freestyle Nori being ready for pickup. He we will start with the lispro with meals. He will let me know if he develops any hypoglycemic events. I will have him continue his current regimen of the Basaglar 30 units twice a day, Trulicity 3 mg weekly, metformin 1000 mg twice a day, and he will start the lispro 4 units with lunch and supper. Complete labs prior to next appointment. (2) Hypertension: Code(s): I10 - Essential (primary) hypertension Category: Medical Qualifiers: Hypertension type: essential hypertension Qualified Code(s): I10 - Essential (primary) hypertension Plan: Continue current regimen. We will follow up in a few months and adjust if needed. Orders: Orders Hemoglobin A1c Today E11.42 - Type 2 diabetes mellitus with diabetic 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 Comprehensive Met. Panel Today E11.42 - Type 2 diabetes mellitus with diabetic 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 Microalbumin, Random (w Creat) Today E11.42 - Type 2 diabetes mellitus with diabetic 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 B Type Natriuretic Peptide Today E11.42 - Type 2 diabetes mellitus with diabetic 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 Medications: Refilled blood-glucose sensor (FreeStyle Nori 3 Plus Sensor device) Use daily As directed to monitor glucose 2 ea 5RF E08.29 - Diabetes mellitus due to underlying condition with other diabetic kidney complication, R80.9 - Proteinuria, unspecified, Z79.4 - watermelon inspector (current) use of insulin blood-glucose sensor (FreeStyle Nori 3 Plus Sensor device) Use daily As directed to monitor glucose 2 ea 5RF E08.29 - Diabetes mellitus due to underlying condition with other diabetic kidney complication, R80.9 - Proteinuria, unspecified, Z79.4 - skilled nursing (current) use of insulin Coding Level of Care Code Est Pt Level 4 (07017) Complex EM visit Add On G2211 Diagnoses Diabetic 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 associated with type 2 diabetes mellitus E11.42 Essential hypertension I10 Hypertension type: essential hypertension
[2024-06-29 08:08] LABS: Glucose, Whole Blood 133 mg/dL (60-115)
== END 2024-06-29 08:25 | disposition home or self-care (01) ==
PROVIDERS: PCP Internal Medicine; Visit Provider Physician Assistant
DX: E11.42 Type 2 diabetes mellitus with diabetic 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 (principal); I10 Essential (primary) hypertension

== ENCOUNTER → 2024-06-29 07:38 | Outpatient (BNVA) | payer MEDICARE, SELFPAY | PROVIDERS: PCP Internal Medicine; Visit Provider Physician Assistant | DX: E11.42 Type 2 diabetes mellitus with diabetic 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 (principal); E11.29 Type 2 diabetes mellitus with other diabetic kidney complication; E11.22 Type 2 diabetes mellitus with diabetic chronic kidney disease; I12.9 Hypertensive chronic kidney disease with stage 1 through stage 4 chronic kidney disease, or unspecified chronic kidney disease; N18.9 Chronic kidney disease, unspecified; E66.9 Obesity, unspecified; G47.33 Obstructive sleep apnea (adult) (pediatric); Z86.718 Personal history of other venous thrombosis and embolism; R80.9 Proteinuria, unspecified; Z79.4 Long term (current) use of insulin; Z79.899 Other long term (current) drug therapy; Z68.31 Body mass index [BMI] 31.0-31.9, adult | CPT/HCPCS: 82947; 99212 ==

== ENCOUNTER 2024-09-02 07:45 | Outpatient (AMB) | payer MEDICARE, SELFPAY ==
[2024-09-02 07:51] VITALS: BP 148/88; PULSE 60; O2SAT 95; BMI 30.3
--- NOTE | 2024-09-02 07:51 | A.OFFPC_ITS ---
Vital Signs 09/02/24 07:51 Height 6 ft 2 in Weight 236 lb BMI 30.3 BP 148/88 H Blood Pressure Location Lt brachial Position Sitting Pulse 60 Pulse Source Pulse Oximeter Pulse Oximetry (%) 95 Oxygen Delivery Method Room Air Intake Visit Reasons: f/u DM Allergies lisinopril Allergy (Unknown, Verified 09/02/24 08:03) cough Sulfa (Sulfonamide Antibiotics) Allergy (Unknown, Verified 09/02/24 08:03) Unknown DONAL Inhibitors [DONAL INHIBITORS] Adverse Reaction (Intermediate, Verified 09/02/24 08:03) COUGH tirzepatide Adverse Reaction (Intermediate, Verified 09/02/24 08:03) Nausea jardiance Adverse Reaction (Intermediate, Uncoded 09/02/24 08:03) weakness Medication List - Last Reconciled 09/02/24 by Tami Russo PA-C amlodipine 5 mg PO DAILY apixaban (Eliquis) 5 mg PO BID atorvastatin 40 mg PO DAILY 90 days blood sugar diagnostic (FreeStyle Lite Strips) As directed check the [facility] TID blood-glucose sensor (FreeStyle Nori 3 Plus Sensor device) Use daily As directed to monitor glucose cyanocobalamin (vitamin B-12) 1,000 mcg PO DAILY dulaglutide 3 mg (0.5 mL) subcut QWEEK 90 days folic acid 1 mg PO DAILY 90 days glucose (Dex4 Glucose) 16 grams (4 x 4 gram) PO Q15M PRN insulin glargine (Basaglar KwikPen U-100 Insulin) 30 units (0.3 mL) subcut BID 30 days insulin lispro (Admelog SoloStar U-100 Insulin lispro) 4 units (0.04 mL) subcut TID losartan 50 mg PO DAILY metformin 1,000 mg PO BID Tobacco use date assessed: 09/02/24 Fall risk assessment: No Falls in past year Last assessed Fall Risk: 09/02/24 Dental Screening Dental Screen Date: 09/02/24 Did you have a dental visit in the last 12 months?: No Did you have a dental problem in the last 6 months where you did not have access to dental care?: No Was dental information given to patient?: Patient has dentist HPI f/u DM HPI Details 73-year-old obese male with uncontrolled diabetes mellitus, hypertension, hypercholesterolemia, chronic kidney disease, history of left leg DVT and pulmonary embolism, ascending aorta dilation obstructive sleep apnea last seen 05/2024 coming in for follow up.? In review of the notes, patient was seen by [facility] endocrinology 06/2024 sensors were refilled and started on lispro with meals otherwise continue with current regimen. Presenting with follow-up for blood glucose management and hypertension assessment. He experienced challenges in managing his diabetes due to a disruption in using CGM sensors, which he was without for some time. He has a significant decrease in A1c from 14 to 8.7 with CGM usage, although the recent disruption impacted the control. Notably, he experienced a hypoglycemic episode with a blood glucose level of 53 mg/dL, which he self-managed successfully. He does not frequently have lows since using the CGM. The patient's hypertension management was compromised by occasional forgetfulness concerning his medication regimen, resulting in elevated readings. [facility] Medical History Anxiety and depression Colon cancer screening Adult general medical exam Screening for prostate cancer Diabetic 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 associated with type 2 diabetes mellitus penitentiary (current) use of insulin Vitamin D deficiency Carpal tunnel syndrome, right Laceration of thumb, right, complicated CKD (chronic kidney disease) stage 3, GFR 30-59 ml/min Benign esophageal stricture Fracture of right heel History of renal calculi Hypertension Hypercholesterolemia Obesity (BMI 30-39.9) Obstructive sleep apnea History of pulmonary embolism Type 2 diabetes mellitus with hyperglycemia Surgical History History of colonoscopy Family History Father Hypertension CVD (cardiovascular disease) Prostate enlargement Mother No problems noted. Family/Other Diabetes Social History Housing: House Alcohol intake: current Alcohol intake frequency: holidays/special occasions only Alcohol type: beer Patient Tobacco Use Status: Never used Tobacco Tobacco use type: Cigarette e-Cigarette/Vaping Use: Never Used Second Hand Smoke Exposure: No service: No Current occupational status: retired Cognitive needs: No Hearing needs: No Vision needs: Yes Questionnaire PHQ-9 Over the last 2 weeks, how often have you been bothered by any of the following problems? 1. Little interest or pleasure in doing things: several days 2. Feeling down, depressed, or hopeless: several days 3. Trouble falling or staying asleep, or sleeping too much: several days 4. Feeling tired or having little energy: several days 5. Poor appetite or overeating: not at all 6. Feeling bad about yourself - or that you are a failure or have let yourself or your family down: not at all 7. Trouble concentrating on things, such as reading the newspaper or watching television: not at all 8. Moving or speaking so slowly that other people could have noticed. Or the o pposite - being so fidgety or restless that you have been moving around a lot more than usual: not at all 9. Thoughts that you would be better off or of hurting yourself in some way: not at all Total score: 4 Depression Screening Interpretation: Negative Depression Screening Done: Yes 27271 - PHQ-9 Billing: Yes Source: Developed by Drs. Balta Reyes, Estefania Singh, Hiram Driver and colleagues, with an educational alonso from [employer]. Thrive Questionnaire Date Thrive assessed: 09/02/24 I am a: Patient What is your living situation today?: I have a steady place to live Within the past 12 months, did the food you bought not last and you didn't have the money to get more?: Never true Within the past 12 months, did you worry whether your food would run out before you got money to buy more?: Never true Do you have trouble paying for medicines?: No Do you have trouble getting transportation to medical appointments?: No Do you have trouble paying your heating and electricity bill?: No Do you have trouble taking care of your child, family member or friend?: No Do you have trouble with day-to-day activities such as bathing, preparing meals, shopping, managing finances, etc.?: No Are you currently unemployed and looking for a job?: No Are you interested in more education?: No Currently or been in a relationship where the following occur: No concerns reported THRIVE Score: 0 AUDIT C Alcohol Use Questionnaire (AUDIT-C) 3. How often do you have six or more drinks on one occasion?: Never Total Score: 0 APOORVA-7 AMB Questionnaire APOORVA-7 Date APOROVA - 7 assessed: 09/02/24 Feeling nervous, anxious, or on edge: 0 = Not at all Not being able to stop or control worryin = Not at all Worrying too much about different things: 0 = Not at all Trouble relaxin = Not at all Being so restless that it is hard to sit still: 0 = Not at all Becoming easily annoyed or irritable: 0 = Not at all Feeling afraid as if something awful might happen: 0 = Not at all Total APOORVA-7 score (0-4 normal; 5-9 mild; 10-14 moderate; 15-21 severe): 0 Source: Developed by Drs. Balta Reyes, Estefania Singh, Hiram Driver and colleagues, with an educational alonso from [employer]. Review of Systems Const Denies body aches, Denies chills, Denies fever(s), Denies headache(s) and Denies poor appetite Eyes Reports no additional complaints ENT Denies dysphagia, Denies dizziness, Denies headache(s) and Denies odynophagia Card Denies chest pain, Denies syncope, Denies edema, Denies irregular heart rhythm, Denies lightheadedness and Denies dyspnea Resp Denies cough and Denies dyspnea GI Denies abdominal pain, Denies constipation, Denies dysphagia, Denies diarrhea, Denies nausea, Denies odynophagia and Denies vomiting Reports no additional complaints Musc Reports no additional complaints and Denies abnormal gait Skin/Breast Reports system reviewed and no additional complaints, except as documented Neuro Denies abnormal gait, Denies dizziness, Denies syncope and Denies headache(s) Psych Reports no additional complaints Physical exam (Primary Care) Vital Signs: Last Vital Signs Pulse 60 09/02/24 07:51 BP 148/88 H 09/02/24 07:51 Pulse Ox 95 09/02/24 07:51 Oxygen Delivery Method Room Air 09/02/24 07:51 BMI result Body Mass Index 30.3 Tobacco/Smoking Status: Tobacco use Status Tobacco use date assessed 09/02/24 09/02/24 07:53 Patient Tobacco Use Status Never used Tobacco 09/02/24 07:53 Tobacco use type Cigarette 09/02/24 07:53 e-Cigarette/Vaping Use Never Used 09/02/24 07:53 PHQ-9: PHQ-9 Score PHQ-9: Total score 4 09/02/24 08:11 Depression Screening Interpretation: Negative Thrive Assessment: Date of Thrive Assessment Date Thrive assessed 09/02/24 09/02/24 07:53 Currently or been in a relationship where the following occur: No concerns reported Const General: cooperative, healthy appearing, comfortable and no acute distress Orientation/consciousness: patient oriented x3 HENMT Head: Yes normocephalic Ears: hearing grossly normal bilaterally General nose exam: Normal external nose present Eyes General: appearance normal, both eyes and all related structures Conjunctivae: conjunctivae normal Neck Neck: Yes full ROM and Yes no lymphadenopathy Resp Effort & Inspection: normal respiratory effort Auscultation: clear to auscultation bilaterally, no crackles, no rales, no rhonchi and no wheezes Cardio Rate: regular rate Rhythm: regular rhythm Skin General skin exam: no rashes or lesions noted Neuro General: patient oriented x3 Gait exam (Neuro): Normal gait present Extrem General: Yes normal to inspection, Yes full ROM and No edema Psych Affect: normal affect Attitude: cooperative Insight: Good insight present (Psych) Judgement: Good judgement present (Psych) Results AMB Hemoglobin A1c AMB Hemoglobin A1c 8.7 % Last Edit by Irina Casiano CMA on 09/02/24 08 :11 Results Reviewed Results Reviewed: Laboratory Last Values Hgb A1c (Clinic) 8.7 % (4.0-6.0) H 09/02/24 07:51 Coding Level of Care Code Est Pt Level 3 (08528) Diagnoses Diabetic 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 associated with type 2 diabetes mellitus E11.42 Stage 3a chronic kidney disease N18.31 Chronic kidney disease stage 3 subtype: stage 3a (GFR 45-59) Essential hypertension I10 Hypertension type: essential hypertension Hypercholesterolemia E78.00 Obesity (BMI 30-39.9) E66.9 Type 2 diabetes mellitus with hyperglycemia, with long-term current use of insulin E11.65; Z79.4 Diabetes mellitus continuous churn buttermaker insulin use: with continuous churn buttermaker use Additional Codes PHQ-9 - 85568 - PHQ-9 Billing: Yes ([id number]) Assessment & Plan Assessment & Plan (1) Diabetic 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 associated with type 2 diabetes mellitus: Code(s): E11.42 - Type 2 diabetes mellitus with diabetic 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 Category: Medical Plan: Advised better control of blood sugars and avoidance of carbs and sugars. (2) CKD (chronic kidney disease) stage 3, GFR 30-59 ml/min: Code(s): N18.30 - Chronic kidney disease, stage 3 unspecified Category: Medical Qualifiers: Chronic kidney disease stage 3 subtype: stage 3a (GFR 45-59) Qualified Code(s): N18.31 - Chronic kidney disease, stage 3a Plan: Continue to avoid kidney irritants such as NSAIDs and stay well hydrated. (3) Hypertension: Code(s): I10 - Essential (primary) hypertension Category: Medical Qualifiers: Hypertension type: essential hypertension Qualified Code(s): I10 - Essential (primary) hypertension Plan: Continue on current blood pressure medication. Avoid salt intake and encourage healthy diet and regular exercise. Blood pressure mildly elevated today patient states he has not yet taken his blood pressure medications this morning and he often forgets to take them in the mornings. Encouraged medication adherence plan to follow up in 6 weeks. Advised patient to monitor blood pressures at home and bring log to next visit. (4) Hypercholesterolemia: Code(s): E78.00 - Pure hypercholesterolemia, unspecified Category: Medical Plan: Avoid foods that are high in cholesterol such as red meat, fried foods, eggs and baked goods. Triglyceride goal of less than 150 and LDL goal of less than 100. Continue on atorvastatin 40 (5) Obesity (BMI 30-39.9): Code(s): E66.9 - Obesity, unspecified Category: Medical Plan: Healthy diet and regular exercise is encouraged. (6) Type 2 diabetes mellitus with hyperglycemia: Code(s): E11.65 - Type 2 diabetes mellitus with hyperglycemia Category: Medical Qualifiers: Diabetes mellitus nursing home insulin use: with continuous churn buttermaker use Qualified Code(s): E11.65 - Type 2 diabetes mellitus with hyperglycemia; Z79.4 - penitentiary (current) use of insulin Plan: Decrease the amount of carbohydrates such as pasta, bread, rice, and potatoes and limit the amount of sweets. Although fruits are generally healthy they should be eaten in moderation as they are still high in sugar. Hemoglobin A1c goal of less than 7%. Patient currently using a sensor and glargine 30 units daily along with lispro 4 units t.i.d., metformin 1000 mg twice daily and Trulicity 3 mg weekly. The patient will continue to use a continuous glucose monitor to improve diabetes management, with close monitoring of glucose levels. Plan Patient was informed and verbally consented to the use of an ambient scribe for clinic note documentation during this visit. This note was constructed using voice recognition software. While every effort has been made to ensure accuracy and instructional manager, still areas may have been included sometimes these areas may affect the content or meeting of the given symptoms. Total time spent caring for the patient today was 20 minutes. This includes time spent before the visit reviewing the chart, time spent during the visit, and time spent after the visit and documentation. Orders: Orders AMB Hemoglobin A1c Today Z13.9 - Encounter for screening, unspecified
--- OUTSIDE RECORDS SUMMARY | 2024-09-02 07:52 | XMS_ITS ---
Author Organization [facility] Address [address] [place] [id number] Care Team Providers Care Railcar Foreman Name Role Phone Po Pearl DENT Primary Care Provider Balta Johnson [phone] REASON FOR VISIT positive cologuard Encounters Encounter Location Date Provider Diagnosis [facility] [address] [place] [address] 11/20/2023 Balta Ricks PLAN OF TREATMENT No Information
--- OUTSIDE RECORDS SUMMARY | 2024-09-02 07:52 | XMS_ITS | Patient Health Record ---
Author Organization [facility] Address [address] [place] [address] Care Team Providers Care Cardiology Specialist Name Role Phone Po Pearl DENT Primary Care Provider Balta Johnson [phone] ALLERGIES Allergen (clinical drug ingredient) Drug/Non Drug Allergy documented on EMR Reaction Allergy Type Onset Date Status Sulfa Unknown Drug Allergy Active lisinopril Lisinopril Unknown Drug Allergy Activ e angiotensin-converting enzyme inhibitor (FN) shefali inhibitors (uncoded) Unknown Allergy Active REASON FOR REFERRAL No Information MEDICATIONS Medication [...] Active confirmed Diverticul ar disease of colon (859928044) Problem Gastroesophageal reflux disease, esophagitis presence not specified (K21.9) Active confirmed 306778137 Problem Esophageal ring (K22.2) Active confirmed 341964218 Problem Pharyngoesophageal dysphagia (R13.14) Active confirmed 51985661 Encounters Encounter Location Date Provider Diagnosis [facility] [address] [place] [address] 11/20/2023 Balta Ricks PLAN OF TREATMENT Future Test Test Name Order Date UPPER GI ENDOSCOPY BALLOOON DILATION OF ESOPH 09/06/2016 COLONOSCOPY 08/07/2023 Insurance Providers Payer Name Payer Address Payer Phone Subscriber Number Group Number Insured Name Patient Relationship to Insured Coverage Start Date Coverage End Date MEDICARE OF [place] [address] [facility] [address] [id number] TYE HERNÁNDEZ Self - patient is the insured MEDEX ATTN CLAIMS [address] [place] [address] [id number] TYE HERNÁNDEZ Self - patient is the insured MEDICAL (GENERAL) HISTORY Medical History History ICD Code Negative screening colonosco py 01-27-2010 except for diverticulosis and internal hemorrhoids; he also had a negative colonoscopy in 2001 at [place] Depression IDDM Hyperlipidemia Hypertension Kidney stones DVT in Left leg--had a pulmonary emnbolu s--2013 GERD and dysphagia-Distal es ophageal ring--EGD 01/2017-18mm balloon dilation; small hiatal hernia; no esophagitis nor Rodríguez's esophagus Denies [place],CVA,Lung disease,renal disease Negative sleep study Negtaive ETT + Cologuard in 2022 Surgical History Surgery Date(Month/Year) Removal of a cyst under the left arm
--- OUTSIDE RECORDS SUMMARY | 2024-09-02 07:52 | XMS_ITS ---
Author Organization [facility] Address [address] [place] [address] Care Team Providers Care Endless Bed Drum Sander Name Role Phone Po Pearl DENT Primary Care Provider Balta Johnson [phone] ALLERGIES Allergen (clinical drug ingredient) Drug/Non Drug [...] day for 30 day(s) Active VITAL SIGNS Temperature 98.5 degrees Fahrenheit 08/07/19 24 Blood pressure systolic 000 mm Hg 08/07/19 24 Blood pressure diastolic 00 mm Hg 024 Height 74.5 in 08/07/2023 Weight 253 lbs 08/07/2023 BMI 32.05 kg/m2 08/07/2023 Encounters Encounter Location Date Provider Diagnosis [facility] [address] [place] [address] 08/07/2023 Balta Ricks Positive colorectal cancer screening [...]
--- OUTSIDE RECORDS SUMMARY | 2024-09-02 07:52 | XMS_ITS ---
Author Organization [facility] Address [address] [place] [address] Care Team Providers Care Military Exchange Wireless Manager Name Role Phone Po Pearl DENT Primary Care Provider Balta Johnson [phone] REASON FOR VISIT positive cologuard test PROBLEMS Problem Type ICD Code Onset Dates Problem Status W/U Status Risk SNOMED Code Notes Problem Diverticulosis of large intestine without perforation or abscess without bleeding (K57.30) Active confirmed Diverticul ar disease of colon (609172720) Encounters Encounter Location Date Provider Diagnosis [facility] Out[place] [address] [place], [place] [id number] 08/12/2023 Balta Ricks Encounter for scre ening [...]
== END 2024-09-02 08:25 | disposition home or self-care (01) ==
PROVIDERS: PCP Internal Medicine
DX: I12.9 Hypertensive chronic kidney disease with stage 1 through stage 4 chronic kidney disease, or unspecified chronic kidney disease (principal); E11.42 Type 2 diabetes mellitus with diabetic 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; N18.31 Chronic kidney disease, stage 3a; E11.65 Type 2 diabetes mellitus with hyperglycemia; Z79.4 Long term (current) use of insulin; Z68.30 Body mass index [BMI] 30.0-30.9, adult; E66.9 Obesity, unspecified; E78.00 Pure hypercholesterolemia, unspecified

== ENCOUNTER → 2024-09-02 07:45 | Outpatient (BNVA) | payer MEDICARE, SELFPAY | PROVIDERS: PCP Internal Medicine | DX: E11.42 Type 2 diabetes mellitus with diabetic 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 (principal); I12.9 Hypertensive chronic kidney disease with stage 1 through stage 4 chronic kidney disease, or unspecified chronic kidney disease; E11.22 Type 2 diabetes mellitus with diabetic chronic kidney disease; N18.31 Chronic kidney disease, stage 3a; E78.00 Pure hypercholesterolemia, unspecified; E66.9 Obesity, unspecified; Z68.30 Body mass index [BMI] 30.0-30.9, adult; Z71.3 Dietary counseling and surveillance; Z79.4 Long term (current) use of insulin | CPT/HCPCS: 83036; 96127; 99212 ==

== ENCOUNTER 2024-10-14 07:42 | Outpatient (AMB) | payer MEDICARE, SELFPAY ==
--- OUTSIDE RECORDS SUMMARY | 2024-10-14 07:46 | XMS_ITS ---
Author Organization [facility] Address [address] [place] [address] Care Team Providers Care Manager Behavior Name Role Phone Po Pearl DENT Primary Care Provider Balta Johnson [phone] Allergies Allergen (clinical drug ingredient) Drug/Non Drug Allergy documented on EMR Reaction Allergy Type Onset Date Status Sulfa Unknown Drug Allergy Active lisinopril Lisinopril Unknown Drug Allergy Activ e angiotensin-converting enzyme inhibitor (FN) shefali inhibitors (uncoded) Unknown Allergy Active REASON FOR VISIT Patient presents today for a positive cologuard Medications Medication SIG (Take, Route, Frequency, Duration) Notes [...] Once a day for 30 day(s) Active Vital Signs Temperature 98.5 degrees Fahrenheit 08/07/19 24 Blood pressure systolic 000 mm Hg 08/07/19 24 Blood pressure diastolic 00 mm Hg 024 Height 74.5 in 08/07/2023 Weight 253 lbs 08/07/2023 BMI 32.05 kg/m2 08/07/2023 Encounters Encounter Location Date Provider Diagnosis [facility] [address] [place] [address] 08/07/2023 Balta Millicent Positive colorectal cancer screening using Cologuard test R19.5 Assessments Encounter Date Diagnosis (ICD Code) Assessment Notes Treatment Notes Treatment Clinical Notes Section Notes 08/07/2023 Positive colorectal cancer screening using Cologuard test (ICD-10 - R19.5) TAKE ONLY 1/2 YOUR USUAL INSULIN THE NIGHT BEFORE THE COLONOSCOPY DO NOT TAKE THE METFORMIN THE NIGHT BEFORE NOR ON THE MORNING OF THE COLONOSCOPY DO NOT TAKE ASPIRIN FOR THREE DAYS BEFORE THE COLONOSCOPY Overall, Tye appears quite well. He is not having any new or worrisome GI complaints. His previous history of reflux and dysphagia seems stable without any particular medical therapy. His previous history of dysphagia seems to have been related to some reflux and esophageal spasm given the previous upper endoscopy findings and his good improvement on the previous omeprazole. I don't think he needs any type of intervention at this time. We did review that if he begins having any reflux and/or dysphagia I would recommend a trial of another course of a PPI to see if that would alleviate things if indeed we are dealing with recurrent reflux and esophageal spasm. We did review that if his dysphagia becomes problematic again and is refractory to medical therapy he should definitely let me know that and we can always perform a repeat upper endoscopy and possible balloon dilation at that time. In regard to his positive Cologuard test and his last colonoscopy being well over 10 years ago, I did recommend a followup colonoscopy for further evaluation. We did review the rationale for this in regard to colorectal cancer prevention and/or early detection. Full consent is obtained for this, including risks of bleeding and perforation. The procedure will be done with monitored anesthesia care. It has been scheduled for early next week. He has been given the below instructions regarding adjustment of his medications for the procedure. Of note, at this point he has not yet started his Mounjaro injections for his diabetes and therefore we do not have to worry about waiting the 7 days before scheduling the procedure. Tye was comfortable with this plan. Thank you again for allowing me to participate in Tye's care. I shall continue to keep you advised of his progress. Plan Of Treatment Treatment Notes Assessment Notes Positive colorectal cancer [...] Follow Up: prn, Reason: Progress Notes * TYE HERNÁNDEZ EDOB:1950 (72 yo M)Acc No.[id number]:08/07/2023 Progress Notes Patient:?TYE HERNÁNDEZ Provider:?Balta Ricks MD :1950???Age:72 Y???Sex:Male Matt e:08/07/2023 [address] [id number] Pcp:Pearl Álvarez MD Subjective: * Chief Complaints: * ???Patient presents today fo r a positive cologuard * HPI: ???incontinence:? I saw Tye in consultation today in regard to further evaluation of his previous history of reflux and dysphagia, as well as the recent finding of a positive Cologuard test. ?I last saw Tye in 2017, at which time he underwent an upper endoscopy for evaluation of some reflux and dysphagia. This revealed only a small hiatal hernia and no evidence of any esophagitis, Rodríguez's esophagus, esophageal ring, nor esophageal stricture. There was a benign hyperplastic esophageal polyp noted that was biopsied and removed. The gastroesophageal junction was empirically dilated with an 18 mm balloon at that time and he was treated with a course of omeprazole. He describes that his swallowing improved after that and has basically remained stable. He reports he is no longer using any acid suppression. He finds that as long as he eats slowly and drinks fluid with meals his swallowing is not a problem for him. He describes that he is presently eating comfortably, including things such as meat and bread. He denies any significant heartburn, anorexia, early satiety, nausea, vomiting, nor any weight loss. He denies any abdominal pain, jaundice, change in bowel habits, hematochezia, nor melena. He denies any known family history of first-degree relatives with colorectal cancer. ?He has had negative screening colonoscopies in 2001 at [facility] and in 2009 with me. ?As you know, he did have a recent Cologuard test that came back as positive. * ROS:?General/Constitutional:?Change in appetite?denies.?Chills?denies.?Fatigue?denies.?Ophthalmologic:?Comments?all negative.?ENT:?Comments?all negative.?Respiratory:?hemoptysis?denies.?Cough?denies.?Cardiovascular:?Chest pain?denies.?Orthopnea?denies.?Gastrointestinal:?Comments?See HPI for details.?Genitourinary:?Hematuria?denies.?Dysuria?denies.?Musculoskeletal:?Painful joints?denies.?Weakness?denies.?Skin:?Itching?denies.?Rash?denies.?Neurologic:?Headache?denies.?Seizures?denies.?Psychiatric:?Comments?all negative.? * Medical History:? * Surgical History:?Removal of a cyst under the left arm * Hospitalization/Major Diagno stic Procedure:?No Hospitalization History. * Family History:?Father: dece ased, diagnosed with Heart disease.?Mother: .? The patient denies any known family history of colorectal cancer. * Social History:?Tobacco Use:?Tobacco Use/Smoking?Patient is a: nonsmoker.?Drugs/Alcohol:?Alcohol Screen?Points: 1, Interpretation: Negative.?Miscellaneous:?Marital status: . 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 ???Nonsmoker; no sig alcohol. * Medications:?TakingAmlodipin e & Diet Manage Prod Folic Acid 1 MG Tablet 1 tablet Orally Once a dayMounjaro 5 MG/0.5ML Solution Pen-injector as directed Subcutaneous , Notes: STARTING LATER IN 08/2023 AFTER THE COLONOSCOPYLantus SoloStar 100 UNIT/ML Solution Pen-injector INJCT 50 UNITS SUBCUTANEOUSLY ONCE DAILY Subcutaneous Pravastatin Sodium 40 MG Tablet TAKE 1 TABLET BY MOUTH EVERY DAY Oral Losartan Potassium 100 MG Tablet TAKE 1 TABLET BY MOUTH EVERY DAY Oral metFORMIN HCl 1000 MG Tablet TAKE 1 TABLET BY MOUTH TWICE A DAY WITH MEALS Oral FLUoxetine HCl 20 MG Capsule TAKE 2 CAPSULES BY MOUTH EVERY DAY Oral Aspir-81 81 MG Tablet Delayed Release 1 tablet Orally Once a dayTaking Amlodipine & Diet Manage Prod Taking Folic Acid 1 MG Tablet 1 tablet Orally Once a dayTaking Mounjaro 5 MG/0.5ML Solution Pen- injector as directed Subcutaneous , Notes: STARTING LATER IN 08/2023 AFTER THE COLONOSCOPYTaking Lantus SoloStar 100 UNIT/ML Solution Pen-injector INJCT 50 UNITS SUBCUTANEOUSLY ONCE DAILY Subcutaneous Taking Pravastatin Sodium 40 MG Tablet TAKE 1 TABLET BY MOUTH EVERY DAY Oral Taking Losartan Potassium 100 MG Tablet TAKE 1 TABLET BY MOUTH EVERY DAY Oral Taking metFORMIN HCl 1000 MG Tablet TAKE 1 TABLET BY MOUTH TWICE A DAY WITH MEALS Oral Taking FLUoxetine HCl 20 MG Capsule TAKE 2 CAPSULES BY MOUTH EVERY DAY Oral Taking Aspir-81 81 MG Tablet Delayed Release 1 tablet Orally Once a dayNot-Taking/PRNTrulicity 0.75 MG/0.5ML Solution Pen-injector INJECT 0.5ML'S SUBCUTANEOUSLY ONCE A WEEK Subcutaneous Fish Oil 1000 MG Capsule 1 capsule Orally Once a dayOmeprazole 20 MG Capsule Delayed Release TAKE ONE CAPSULE BY MOUTH EVERY DAY Medication List reviewed and reconciled with the patientNot-Taking/PRN Trulicity 0.75 MG/0.5ML Solution Pen-injector INJECT 0.5ML'S SUBCUTANEOUSLY ONCE A WEEK Subcutaneous Not-Taking/PRN Fish Oil 1000 MG Capsule 1 capsule Orally Once a dayNot-Taking/PRN Omeprazole 20 MG Capsule Delayed Release TAKE ONE CAPSULE BY MOUTH EVERY DAY Medication List reviewed and reconciled with the patient * Allergies:?SulfaLisinoprilac e inhibitorsyes[Allergies Verified] Objective: * Vitals:?Wt: 253 lbs, Ht: 74. 5 in, BMI:32.05 Index, BP: 000/00 mm Hg, Temp: 98.5. * Examination: ???General Examination: ?GENERAL APPEARANCE:?pleasant, well nourished, well developed, in no acute distress.?EYES:?sclera non-icteric.?ORAL CAVITY:?mucosa moist.?NECK/THYROID:?no cervical lymphadenopathy, neck supple.?SKIN:?nonjaundiced, no spider angiomata.?HEART:?S1, S2 normal.?LUNGS:?clear to auscultation bilaterally.?ABDOMEN:?normal bowel sounds, no guarding or rigidity, no guarding or rigidity, no masses palpable, soft, nontender, nondistended.?EXTREMITIES:?no edema.?NEUROLOGIC:?alert and oriented.? Assessment: * Assessment: 1.?Positive colorectal cance r screening using Cologuard test - R19.5 (Primary)? Overall, Tye appears quite well. He is not having any new or worrisome GI complaints. His previous history of reflux and dysphagia seems stable without any particular medical therapy. His previous history of dysphagia seems to have been related to some reflux and esophageal spasm given the previous upper endoscopy findings and his good improvement on the previous omeprazole. I don't think he needs any type of intervention at this time. We did review that if he begins having any reflux and/or dysphagia I would recommend a trial of another course of a PPI to see if that would alleviate things if indeed we are dealing with recurrent reflux and esophageal spasm. We did review that if his dysphagia becomes problematic again and is refractory to medical therapy he should definitely let me know that and we can always perform a repeat upper endoscopy and possible balloon dilation at that time. In regard to his positive Cologuard test and his last colonoscopy being well over 10 years ago, I did recommend a followup colonoscopy for further evaluation. We did review the rationale for this in regard to colorectal cancer prevention and/or early detection. Full consent is obtained for this, including risks of bleeding and perforation. The procedure will be done with monitored anesthesia care. It has been scheduled for early next week. He has been given the below instructions regarding adjustment of his medications for the procedure. Of note, at this point he has not yet started his Mounjaro injections for his diabetes and therefore we do not have to worry about waiting the 7 days before scheduling the procedure. Tye was comfortable with this plan. Thank you again for allowing me to participate in Tye's care. I shall continue to keep you advised of his progress. Plan: * Treatment: Notes: TAKE ONLY 1/2 YOUR USUAL INSULIN THE NIGHT BEFORE THE COLONOSCOPY DO NOT TAKE THE METFORMIN THE NIGHT BEFORE NOR ON THE MORNING OF THE COLONOSCOPY DO NOT TAKE ASPIRIN FOR THREE DAYS BEFORE THE COLONOSCOPY.?? * Procedure Codes:?3017F COLOR ECTAL CA SCREEN DOC [id number] TOBACCO [id number] BP SCR NOT PRFRM REC REASON NOS * Preventive Medicine:? ??Counseling:?Care goal follow-up plan:?Above Normal BMI Follow-up?Giving encouragement to exercise,?BMI management provided?Yes.? * Follow Up:?prn * * Sign off status: Completed true * Provider:?Balta Ricks MD Date:? 024 Generated for Arnol samuels/Katlin/Baljeetitting on:?10/14/2024 07:46 AM EDT History and Physical Notes * HPI (History of Present Illness) Category Sub-Category Detail Notes Category Not es incontinence I saw Tye in consultation today in regard to further evaluation of his previous history of reflux and dysphagia, as well as the recent finding of a positive Cologuard test. I last saw Tye in 2017, at which time he underwent an upper endoscopy for evaluation of some reflux and dysphagia. This revealed only a small hiatal hernia and no evidence of any esophagitis, Rodríguez's esophagus, esophageal ring, nor esophageal stricture. There was a benign hyperplastic esophageal polyp noted that was biopsied and removed. The gastroesophageal junction was empirically dilated with an 18 mm balloon at that time and he was treated with a course of omeprazole. He describes that his swallowing improved after that and has basically remained stable. He reports he is no longer using any acid suppression. He finds that as long as he eats slowly and drinks fluid with meals his swallowing is not a problem for him. He describes that he is presently eating comfortably, including things such as meat and bread. He denies any significant heartburn, anorexia, early satiety, nausea, vomiting, nor any weight loss. He denies any abdominal pain, jaundice, change in bowel habits, hematochezia, nor melena. He denies any known family history of first-degree relatives with colorectal cancer. He has had negative screening colonoscopies in 2001 at [facility] and in 2009 with me. As you know, he did have a recent Cologuard test that came back as positive. Examination Category Sub-Category Detail Notes Category Not es General Examination GENERAL APPEARANCE: pleasant , well [...]
--- OUTSIDE RECORDS SUMMARY | 2024-10-14 07:46 | XMS_ITS ---
Author Organization [facility] Address [address] [place] [address] Care Team Providers Care Wool Washer Feeder Name Role Phone Pearl Álvarez MD Primary Care Provider Balta Johnson [phone] REASON FOR VISIT positive cologuard Encounters Encounter Location Date Provider Diagnosis [facility] [address] [place] [address] 11/20/2023 Balta Ricks Plan Of Treatment No Information Progress Notes * TYE HERNÁNDEZ EDOB:1950 (73 yo M)Acc No.[id number]:11/20/2023 Progress Notes Patient:?EDGAR TYE Peterson Provider:?Balta Ricks MD :1950???Age:72 Y???Sex:Male Matt e:11/20/2023 Address:[address] [facility] Pcp:Pearl Álvarez MD Subjective: * Chief Complaints: * ???1. Positive cologuard. * Medical History:? Objective: * Vitals:? Assessment: Plan: * Treatment: * * The named appointment provid er may or may not be the originator of this progress note, and it is not deemed complete until electronically signed by the appointment provider. Sign off status: Pending * Provider:?Balta Ricks MD Date:? 024 Generated for Printi ng/Fatenzing/eTransmitting on:?10/14/2024 07:45 AM EDT
--- OUTSIDE RECORDS SUMMARY | 2024-10-14 07:46 | XMS_ITS | Patient Health Record ---
Author Organization [facility] Address [address] [place] [address] Care Team Providers Care Guest Request Runner Name Role Phone Po Pearl DENT Primary Care Provider Balta Johnson [phone] Allergies Allergen (clinical drug ingredient) Drug/Non Drug Allergy documented on EMR Reaction Allergy Type Onset Date Status Sulfa Unknown Drug Allergy Active lisinopril Lisinopril Unknown Drug Allergy Activ e angiotensin-converting enzyme inhibitor (FN) shefali inhibitors (uncoded) Unknown Allergy Active Reason For Referral No Information Medications Medication SIG (Take, Route, Frequency, Duration) [...] 1 tablet Orally Once a day Active Immunizations Vaccine Route Administration Date Status Comme nts Influenza Unknown 05/08/2016 Administered Influenza Unknown 08/07/2023 Administered Problems Problem Type SNOMED Code ICD Code Onset Dates Problem Status W/U Status Risk Notes Problem Diverticular disease of colon (003667979) Diverticulosis of large intestine without perforation or abscess without bleeding (K57.30) Active confirmed Problem 427692983 Gastroesophageal reflux disease, esophagitis presence not specified (K21.9) Active confirmed Problem 035662964 Esophageal ring (K22.2) Active confirmed Problem 18372145 Pharyngoesophage al dysphagia (R13.14) Active confirmed Plan Of Treatment Future Test Test Name Order Date UPPER GI ENDOSCOPY BALLOOON DILATION OF ESOPH 09/06/2016 COLONOSCOPY 08/07/2023 Insurance Providers Payer Name Payer Address Payer Phone Subscriber Number Group Number Insured Name Patient Relationship to Insured Coverage Start Date Coverage End Date MEDICARE OF [place] [address] [place] [address] [id number] TYE HERNÁNDEZ Self - patient is the insured MEDEX ATTN CLAIMS [address] [place] [address] [id number] TYE HERNÁNDEZ Self - patient is the insured Medical (General) History Medical History History ICD Code Negative screening colonosco py 01-27-2010 except for diverticulosis and internal hemorrhoids; he also had a negative colonoscopy in 2001 at [place] Depression IDDM Hyperlipidemia Hypertension Kidney stones DVT in Left leg--had a pulmonary emnbolu s--2013 GERD and dysphagia-Distal es ophageal ring--EGD 01/2017-18mm balloon dilation; small hiatal hernia; no esophagitis nor Rodríguez's esophagus Denies [place],CVA,Lung disease,renal disease Negative sleep study Negtaive ETT + Cologuard in 2022 Surgical History Surgery Date(Month/Year) Removal of a cyst under the left arm
--- OUTSIDE RECORDS SUMMARY | 2024-10-14 07:46 | XMS_ITS ---
Author Organization [facility] Address [address] [place] [address] Care Team Providers Care Product Development Technician Name Role Phone Po Pearl DENT Primary Care Provider Balta Johnson [phone] REASON FOR VISIT positive cologuard test Problems Problem Type SNOMED Code ICD Code Onset Dates Problem Status W/U Status Risk Notes Problem Diverticular disease of colon (360936042) Diverticulosis of large intestine without perforation or abscess without bleeding (K57.30) Active confirmed Encounters Encounter Location Date Provider Diagnosis [facility] Outpatient [address] [place], [place] [phone] 08/12/2023 Balta Ricks Encounter for scre ening colonoscopy Z12.11 ; Heme + stool R19.5 ; Diverticulosis of large intestine without perforation or abscess without bleeding K57.30 and Other hemorrhoids K64.8 Assessments Encounter Date Diagnosis (ICD Code) Assessment Notes Treatment Notes Treatment Clinical Notes Section Notes 08/12/2023 Encounter for screening colonoscopy (ICD-10 - Z12.11) 08/12/2023 Heme + stool (ICD-10 - R19.5) 08/12/2023 Diverticulosis of large intestine without perforation or abscess without bleeding (ICD-10 - K57.30) 08/12/2023 Other hemorrhoids (ICD-10 - K64.8) Plan Of Treatment No Information Progress Notes * TYE HERNÁNDEZ EDOB:1950 (73 yo M)Acc No.[id number]:08/12/2023 COLON WITH MAC Patient:?TYE HERNÁNDEZ Provider:?Balta Ricks MD :1950???Age:72 Y???Sex:Male Matt e:08/12/2023 Address:[address] [facility] Pcp:Pearl Álvarez MD Subjective: * Chief Complaints: * ???1. Positive cologuard prakash t. * Medical History:? Objective: * Vitals:? Assessment: * Assessment: 1.?Encounter for screening c olonoscopy - Z12.11 (Primary)???2.?Heme + stool - R19.5???3.?Diverticulosis of large intestine without perforation or abscess without bleeding - K57.30???4.?Other hemorrhoids - K64.8??? Plan: * Treatment: * Procedure Codes:?G0121 COLOR EC CNCR SCR;COLNSCPY NO HI RSK, Modifiers: KX , 0529F INTRVL 3+YRS PTS CLNSCP DOCD, Modifiers: 8P , 0528F RCMND FLW-UP 10 YRS DOCD, Modifiers: 1P * * The named appointment provid er may or may not be the originator of this progress note, and it is not deemed complete until electronically signed by the appointment provider. Sign off status: Pending * Provider:?Balta Ricks MD Date:? 024 Generated for Arnol samuels/Katlin/eTyaronsmitting on:?10/14/2024 07:46 AM EDT
[2024-10-14 08:13] VITALS: BP 120/64; PULSE 72; TEMP 36.3; O2SAT 96; BMI 30.6
--- NOTE | 2024-10-14 08:13 | MHC.PC.OV ---
Vital Signs 10/14/24 08:13 10/14/24 08:30 Height 6 ft 2 in Weight 238 lb 4 oz BMI 30.6 BP 120/64 144/78 H Blood Pressure Location Lt brachial Lt brachial Position Sitting Sitting Pulse 72 Pulse Source Pulse Oximeter Temp 97.3 F Temp Source Temporal Artery Scan Pulse Oximetry (%) 96 Oxygen Delivery Method Room Air Intake Visit Reasons: 6 weeks follow up Intake Note: Patient is here to follow up on HTN, DM. [employer] Chocolate Dipper Required: No E Commerce Project Manager: Not Required per policy Accompanied by: Self / Same As Patient Allergies lisinopril Allergy (Unknown, Verified 10/14/24 08:17) cough Sulfa (Sulfonamide Antibiotics) Allergy (Unknown, Verified 10/14/24 08:17) Unknown DONAL Inhibitors [DONAL INHIBITORS] Adverse Reaction (Intermediate, Verified 10/14/24 08:17) COUGH tirzepatide Adverse Reaction (Intermediate, Verified 10/14/24 08:17) Nausea jardiance Adverse Reaction (Intermediate, Uncoded 10/14/24 08:17) weakness Medication List - Last Reconciled 10/14/24 by Tami Russo PA-C amlodipine 5 mg PO DAILY apixaban (Eliquis) 5 mg PO BID atorvastatin 40 mg PO DAILY 90 days blood sugar diagnostic (FreeStyle Lite Strips) As directed check the [facility] TID blood-glucose sensor (FreeStyle Nori 3 Plus Sensor device) Use daily As directed to monitor glucose cyanocobalamin (vitamin B-12) 1,000 mcg PO DAILY dulaglutide 3 mg (0.5 mL) subcut QWEEK 90 days folic acid 1 mg PO DAILY 90 days glucose (Dex4 Glucose) 16 grams (4 x 4 gram) PO Q15M PRN insulin glargine (Basaglar KwikPen U-100 Insulin) 30 units (0.3 mL) subcut BID 30 days insulin lispro (Admelog SoloStar U-100 Insulin lispro) 4 units (0.04 mL) subcut TID losartan 50 mg PO DAILY metformin 1,000 mg PO BID Tobacco use date assessed: 10/14/24 Fall risk assessment: No Falls in past year Last assessed Fall Risk: 10/14/24 Dental Screening Dental Screen Date: 09/02/24 HPI 6 weeks follow up HPI Details 73-year-old male with past medical history of uncontrolled diabetes mellitus, hypertension, hypercholesterolemia, chronic kidney disease, history of left leg DVT and pulmonary embolism, ascending aorta dilation, obstructive sleep apnea last seen 08/2024 coming in for follow up. Presenting with follow-up for hypertension management. He has had inconsistent adherence to his antihypertensive medications, which he attributes to running out of the medication and increased stress from family situations. Patient recently had eye exam done no additional findings advised to follow up in 1 year. [facility] Medical History Anxiety and depression Colon cancer screening Adult general medical exam Screening for prostate cancer Diabetic 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 associated with type 2 diabetes mellitus assisted (current) use of insulin Vitamin D deficiency Carpal tunnel syndrome, right Laceration of thumb, right, complicated CKD (chronic kidney disease) stage 3, GFR 30-59 ml/min Benign esophageal stricture Fracture of right heel History of renal calculi Hypertension Hypercholesterolemia Obesity (BMI 30-39.9) Obstructive sleep apnea History of pulmonary embolism Type 2 diabetes mellitus with hyperglycemia Surgical History History of colonoscopy Family History Father Hypertension CVD (cardiovascular disease) Prostate enlargement Mother No problems noted. Family/Other Diabetes Social History Housing: House Alcohol intake: current Alcohol intake frequency: holidays/special occasions only Alcohol type: beer Patient Tobacco Use Status: Never used Tobacco Tobacco use type: Cigarette e-Cigarette/Vaping Use: Never Used Second Hand Smoke Exposure: No service: No Current occupational status: retired Cognitive needs: No Hearing needs: No Vision needs: Yes Questionnaire Thrive Questionnaire Date Thrive assessed: 09/02/24 APOORVA-7 AMB Questionnaire APOORVA-7 Date APOORVA - 7 assessed: 09/02/24 Source: Developed by Drs. Balta Reyes, Estefania Singh, Hiram Driver and colleagues, with an educational alonso from [employer] Review of Systems Const Denies body aches, Denies chills, Denies fever(s), Denies headache(s) and Denies poor appetite Eyes Reports no additional complaints ENT Denies dysphagia, Denies dizziness, Denies headache(s) and Denies odynophagia Card Denies chest pain, Denies syncope, Denies edema, Denies irregular heart rhythm, Denies lightheadedness and Denies dyspnea Resp Denies cough and Denies dyspnea GI Denies abdominal pain, Denies constipation, Denies dysphagia, Denies diarrhea, Denies nausea, Denies odynophagia and Denies vomiting Reports no additional complaints Musc Reports no additional complaints and Denies abnormal gait Skin/Breast Reports system reviewed and no additional complaints, except as documented Neuro Denies abnormal gait, Denies dizziness, Denies syncope and Denies headache(s) Psych Reports no additional complaints Physical exam (Primary Care) Vital Signs: Last Vital Signs Temp 97.3 F 10/14/24 08:13 Pulse 72 10/14/24 08:13 BP 144/78 H 10/14/24 08:30 Pulse Ox 96 10/14/24 08:13 Oxygen Delivery Method Room Air 10/14/24 08:13 BMI result Body Mass Index 30.6 Tobacco/Smoking Status: Tobacco use Status Tobacco use date assessed 10/14/24 10/14/24 08:16 Patient Tobacco Use Status Never used Tobacco 10/14/24 08:16 Tobacco use type Cigarette 10/14/24 08:16 e-Cigarette/Vaping Use Never Used 10/14/24 08:16 Thrive Assessment: Date of Thrive Assessment Date Thrive assessed 09/02/24 10/14/24 08:16 Const General: cooperative, healthy appearing, comfortable and no acute distress Orientation/consciousness: patient oriented x3 HENMT Head: Yes normocephalic Ears: hearing grossly normal bilaterally General nose exam: Normal external nose present Eyes General: appearance normal, both eyes and all related structures Conjunctivae: conjunctivae normal Neck Neck: Yes full ROM and Yes no lymphadenopathy Resp Effort & Inspection: normal respiratory effort Auscultation: clear to auscultation bilaterally, no crackles, no rales, no rhonchi and no wheezes Cardio Rate: regular rate Rhythm: regular rhythm Skin General skin exam: no rashes or lesions noted Neuro General: patient oriented x3 Gait exam (Neuro): Normal gait present Extrem General: Yes normal to inspection, Yes full ROM and No edema Psych Affect: normal affect Attitude: cooperative Insight: Good insight present (Psych) Judgement: Good judgement present (Psych) Coding Level of Care Code Est Pt Level 3 (86343) Diagnoses Diabetic 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 associated with type 2 diabetes mellitus E11.42 Stage 3a chronic kidney disease N18.31 Chronic kidney disease stage 3 subtype: stage 3a (GFR 45-59) Essential hypertension I10 Hypertension type: essential hypertension Hypercholesterolemia E78.00 Obesity (BMI 30-39.9) E66.9 Type 2 diabetes mellitus with hyperglycemia, with long-term current use of insulin E11.65; Z79.4 Diabetes mellitus exterminator helper insulin use: with exterminator helper use Assessment & Plan Assessment & Plan (1) Diabetic 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 associated with type 2 diabetes mellitus: Code(s): E11.42 - Type 2 diabetes mellitus with diabetic 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 Category: Medical Plan: Advised better control of blood sugars and avoidance of carbs and sugars. (2) CKD (chronic kidney disease) stage 3, GFR 30-59 ml/min: Code(s): N18.30 - Chronic kidney disease, stage 3 unspecified Category: Medical Qualifiers: Chronic kidney disease stage 3 subtype: stage 3a (GFR 45-59) Qualified Code(s): N18.31 - Chronic kidney disease, stage 3a Plan: Continue to avoid kidney irritants such as NSAIDs and stay well hydrated. (3) Hypertension: Code(s): I10 - Essential (primary) hypertension Category: Medical Qualifiers: Hypertension type: essential hypertension Qualified Code(s): I10 - Essential (primary) hypertension Plan: Continue on current blood pressure medication. Avoid salt intake and encourage healthy diet and regular exercise. Patient tells us he has stopped taking his medications for the last several weeks advised to take blood pressure medication and blood pressure at home bring log to next visit. Plan to follow up in 6 weeks strongly advised patient to take blood pressure medication prior to our exam. (4) Hypercholesterolemia: Code(s): E78.00 - Pure hypercholesterolemia, unspecified Category: Medical Plan: Avoid foods that are high in cholesterol such as red meat, fried foods, eggs and baked goods. Triglyceride goal of less than 150 and LDL goal of less than 100. Continue on atorvastatin 40 (5) Obesity (BMI 30-39.9): Code(s): E66.9 - Obesity, unspecified Category: Medical Plan: Healthy diet and regular exercise is encouraged. (6) Type 2 diabetes mellitus with hyperglycemia: Code(s): E11.65 - Type 2 diabetes mellitus with hyperglycemia Category: Medical Qualifiers: Diabetes mellitus exterminator helper insulin use: with nursing home use Qualified Code(s): E11.65 - Type 2 diabetes mellitus with hyperglycemia; Z79.4 - assisted (current) use of insulin Plan: Decrease the amount of carbohydrates such as pasta, bread, rice, and potatoes and limit the amount of sweets. Although fruits are generally healthy they should be eaten in moderation as they are still high in sugar. Hemoglobin A1c goal of less than 7%. Patient currently using a sensor and glargine 30 units daily along with lispro 4 units t.i.d., metformin 1000 mg twice daily and Trulicity 3 mg weekly. Plan This note was constructed using voice recognition software. While every effort has been made to ensure accuracy and therapy site coordinator, still areas may have been included sometimes these areas may affect the content or meeting of the given symptoms. Total time spent caring for the patient today was 20 minutes. This includes time spent before the visit reviewing the chart, time spent during the visit, and time spent after the visit and documentation. Patient was informed and verbally consented to the use of an ambient scribe for clinic note documentation during this visit.
[2024-10-14 08:30] VITALS: BP 144/78
== END 2024-10-14 08:34 | disposition home or self-care (01) ==
LOC: HO.HMCH 07:43
PROVIDERS: PCP Internal Medicine
DX: E11.42 Type 2 diabetes mellitus with diabetic 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 (principal); I12.9 Hypertensive chronic kidney disease with stage 1 through stage 4 chronic kidney disease, or unspecified chronic kidney disease; N18.31 Chronic kidney disease, stage 3a; E11.65 Type 2 diabetes mellitus with hyperglycemia; Z79.4 Long term (current) use of insulin; E66.9 Obesity, unspecified; Z68.30 Body mass index [BMI] 30.0-30.9, adult; E78.00 Pure hypercholesterolemia, unspecified

== ENCOUNTER → 2024-10-14 07:42 | Outpatient (BNVA) | payer MEDICARE, SELFPAY | PROVIDERS: PCP Internal Medicine | DX: E11.42 Type 2 diabetes mellitus with diabetic 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 (principal); I12.9 Hypertensive chronic kidney disease with stage 1 through stage 4 chronic kidney disease, or unspecified chronic kidney disease; E11.22 Type 2 diabetes mellitus with diabetic chronic kidney disease; N18.31 Chronic kidney disease, stage 3a; E78.00 Pure hypercholesterolemia, unspecified; E66.9 Obesity, unspecified; E11.65 Type 2 diabetes mellitus with hyperglycemia; Z79.4 Long term (current) use of insulin | CPT/HCPCS: 99212 ==

== ENCOUNTER 2024-11-25 08:06 | Outpatient (AMB) | payer MEDICARE, SELFPAY ==
--- NOTE | 2024-11-25 08:10 | MHC.PC.OV ---
Vital Signs 11/25/24 08:11 Height 6 ft 2 in Weight 240 lb BMI 30.8 BP 130/64 Blood Pressure Location Lt brachial Position Sitting Pulse 61 Pulse Source Pulse Oximeter Temp 97.1 F Temp Source Temporal Artery Scan Pulse Oximetry (%) 95 Oxygen Delivery Method Room Air Intake Visit Reasons: f/u HTN and DM Intake Note: Patient is here to follow up on HTN, DM. Accounts Collector Required: No Vehicle Technician: Not Required per policy Accompanied by: Self / Same As Patient Allergies lisinopril Allergy (Unknown, Verified 11/25/24 08:36) cough Sulfa (Sulfonamide Antibiotics) Allergy (Unknown, Verified 11/25/24 08:36) Unknown DONAL Inhibitors [DONAL INHIBITORS] Adverse Reaction (Intermediate, Verified 11/25/24 08:36) COUGH tirzepatide Adverse Reaction (Intermediate, Verified 11/25/24 08:36) Nausea jardiance Adverse Reaction (Intermediate, Uncoded 11/25/24 08:36) weakness Medication List - Last Reconciled 11/25/24 by Tami Russo PA-C amlodipine 5 mg PO DAILY apixaban (Eliquis) 5 mg PO BID atorvastatin 40 mg PO DAILY 90 days blood sugar diagnostic (FreeStyle Lite Strips) As directed check the [facility] TID blood-glucose sensor (FreeStyle Nori 3 Plus Sensor device) Use daily As directed to monitor glucose cyanocobalamin (vitamin B-12) 1,000 mcg PO DAILY dulaglutide 3 mg (0.5 mL) subcut QWEEK 90 days folic acid 1 mg PO DAILY 90 days glucose (Dex4 Glucose) 16 grams (4 x 4 gram) PO Q15M PRN insulin glargine (Basaglar KwikPen U-100 Insulin) 30 units (0.3 mL) subcut BID 30 days insulin lispro (Admelog SoloStar U-100 Insulin lispro) 4 units (0.04 mL) subcut TID losartan 50 mg PO DAILY metformin 1,000 mg PO BID Tobacco use date assessed: 11/25/24 Fall risk assessment: No Falls in past year Last assessed Fall Risk: 11/25/24 Dental Screening Dental Screen Date: 09/02/24 HPI f/u HTN and DM HPI Details 74-year-old male with past medical history of uncontrolled diabetes mellitus, hypertension, hypercholesterolemia, chronic kidney disease, history of left leg DVT and pulmonary embolism, ascending aorta dilation and obstructive sleep apnea last seen 10/2024 coming in for follow up. Presenting with Type 2 Diabetes Mellitus management. Current treatment for diabetes includes Trulicity, and Basaglar at 60 units daily, with additional Metformin reported by the patient but not verified in pharmacy records. Blood glucose levels are monitored using Dexcom, with a rare hypoglycemic event reaching 68 mg/dL reported one month ago. The hemoglobin A1c is currently at 8.5%, showing minimal decline from a past reading of 8.7%. The reported diet consists of significant carbohydrate intake, including pasta and pizza. 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 Family/Other Diabetes Social History Housing: House Alcohol intake: current Alcohol intake frequency: holidays/special occasions only Alcohol type: beer Patient Tobacco Use Status: Never used Tobacco Tobacco use type: Cigarette e-Cigarette/Vaping Use: Never Used Second Hand Smoke Exposure: No service: No Current occupational status: retired Cognitive needs: No Hearing needs: No Vision needs: Yes Questionnaire PHQ-9 Over the last 2 weeks, how often have you been bothered by any of the following problems? 1. Little interest or pleasure in doing things: not at all 2. Feeling down, depressed, or hopeless: not at all 3. Trouble falling or staying asleep, or sleeping too much: several days 4. Feeling tired or having little energy: several days 5. Poor appetite or overeating: not at all 6. Feeling bad about yourself - or that you are a failure or have let yourself or your family down: not at all 7. Trouble concentrating on things, such as reading the newspaper or watching television: not at all 8. Moving or speaking so slowly that other people could have noticed. Or the opposite - being so fidgety or restless that you have been moving around a lot more than usual: not at all 9. Thoughts that you would be better off or of hurting yourself in some way: not at all Total score: 2 Depression Screening Interpretation: Negative Depression Screening Done: Yes Source: Developed by Drs. Balta Reyes, Estefania Singh, Hiram Driver and colleagues, with an educational alonso from [employer]. Thrive Questionnaire Date Thrive assessed: 09/02/24 I am a: Patient What is your living situation today?: I have a steady place to live Within the past 12 months, did the food you bought not last and you didn't have the money to get more?: I choose not to answer this question Within the past 12 months, did you worry whether your food would run out before you got money to buy more?: Never true Do you have trouble paying for medicines?: No Do you have trouble getting transportation to medical appointments?: No Do you have trouble paying your heating and electricity bill?: No Do you have trouble taking care of your child, family member or friend?: No Do you have trouble with day-to-day activities such as bathing, preparing meals, shopping, managing finances, etc.?: No Are you currently unemployed and looking for a job?: No Are you interested in more education?: No Please select the resources that you would like help with: None Currently or been in a relationship where the following occur: No concerns reported THRIVE Score: 0 AUDIT C Alcohol Use Questionnaire (AUDIT-C) 1. How often do you have a drink containing alcohol?: Monthly or less Total Score: 1 APOORVA-7 AMB Questionnaire APOORVA-7 Date APOORVA - 7 assessed: 11/25/24 Feeling nervous, anxious, or on edge: 0 = Not at all Not being able to stop or control worryin = Not at all Worrying too much about different things: 0 = Not at all Trouble relaxin = Not at all Being so restless that it is hard to sit still: 0 = Not at all Becoming easily annoyed or irritable: 1 = Several days Feeling afraid as if something awful might happen: 0 = Not at all Total APOORVA-7 score (0-4 normal; 5-9 mild; 10-14 moderate; 15-21 severe): 1 Source: Developed by Drs. Balta Reyes, Estefania Singh, Hiram Driver and colleagues, with an educational alonso from [employer]. Review of Systems Const Denies body aches, Denies chills, Denies fever(s), Denies headache(s) and Denies poor appetite Eyes Reports no additional complaints ENT Denies dysphagia, Denies dizziness, Denies headache(s) and Denies odynophagia Card Denies chest pain, Denies syncope, Denies edema, Denies irregular heart rhythm, Denies lightheadedness and Denies dyspnea Resp Denies cough and Denies dyspnea GI Denies abdominal pain, Denies constipation, Denies dysphagia, Denies diarrhea, Denies nausea, Denies odynophagia and Denies vomiting Reports no additional complaints Musc Reports no additional complaints and Denies abnormal gait Skin/Breast Reports system reviewed and no additional complaints, except as documented Neuro Denies abnormal gait, Denies dizziness, Denies syncope and Denies headache(s) Psych Reports no additional complaints Physical exam (Primary Care) Vital Signs: Last Vital Signs Temp 97.1 F 11/25/24 08:11 Pulse 61 11/25/24 08:11 BP 130/64 11/25/24 08:11 Pulse Ox 95 11/25/24 08:11 Oxygen Delivery Method Room Air 11/25/24 08:11 BMI result Body Mass Index 30.8 Tobacco/Smoking Status: Tobacco use Status Tobacco use date assessed 11/25/24 11/25/24 08:20 Patient Tobacco Use Status Never used Tobacco 11/25/24 08:20 Tobacco use type Cigarette 11/25/24 08:20 e-Cigarette/Vaping Use Never Used 11/25/24 08:20 PHQ-9: PHQ-9 Score PHQ-9: Total score 2 11/25/24 08:36 Depression Screening Interpretation: Negative Thrive Assessment: Date of Thrive Assessment Date Thrive assessed 09/02/24 11/25/24 08:20 Currently or been in a relationship where the following occur: No concerns reported Const General: cooperative, healthy appearing, comfortable and no acute distress Orientation/consciousness: patient oriented x3 HENMT Head: Yes normocephalic Ears: hearing grossly normal bilaterally General nose exam: Normal external nose present Eyes General: appearance normal, both eyes and all related structures Conjunctivae: conjunctivae normal Neck Neck: Yes full ROM and Yes no lymphadenopathy Resp Effort & Inspection: normal respiratory effort Auscultation: clear to auscultation bilaterally, no crackles, no rales, no rhonchi and no wheezes Cardio Rate: regular rate Rhythm: regular rhythm Skin General skin exam: no rashes or lesions noted Neuro General: patient oriented x3 Gait exam (Neuro): Normal gait present Extrem General: Yes normal to inspection, Yes full ROM and No edema Psych Affect: normal affect Attitude: cooperative Insight: Good insight present (Psych) Judgement: Good judgement present (Psych) Results AMB Hemoglobin A1c AMB Hemoglobin A1c 8.5 % Last Edit by ZAKIA Cardenas on 11/25/24 08:23 Results Reviewed Results Reviewed: Laboratory Last Values Hgb A1c (Clinic) 8.5 % (4.0-6.0) H 11/25/24 08:09 Coding Level of Care Code Est Pt Level 4 (79065) Diagnoses Type 2 diabetes mellitus with hyperglycemia, with long-term current use of insulin E11.65; Z79.4 Diabetes mellitus long wall mining machine helper insulin use: with [facility] use Diabetic 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 associated with type 2 diabetes mellitus E11.42 Stage 3a chronic kidney disease N18.31 Chronic kidney disease stage 3 subtype: stage 3a (GFR 45-59) Essential hypertension I10 Hypertension type: essential hypertension Hypercholesterolemia E78.00 Obesity (BMI 30-39.9) E66.9 Assessment & Plan Assessment & Plan (1) Type 2 diabetes mellitus with hyperglycemia: Code(s): E11.65 - Type 2 diabetes mellitus with hyperglycemia Category: Medical Qualifiers: Diabetes mellitus long wall mining machine helper insulin use: with long wall mining machine helper use Qualified Code(s): E11.65 - Type 2 diabetes mellitus with hyperglycemia; Z79.4 - custodial (current) use of insulin Plan: Decrease the amount of carbohydrates such as pasta, bread, rice, and potatoes and limit the amount of sweets. Although fruits are generally healthy they should be eaten in moderation as they are still high in sugar. Hemoglobin A1c goal of less than 7%. Patient currently using a sensor and glargine 30 units BID, metformin 1000 mg twice daily and Trulicity 3 mg weekly. Plan to increase Trulicity to 4.5 mg as his A1c is still elevated. Advised patient to be causes of lows and if he begins having low blood sugars to reach out to the office. Discussed dietary modification as well (2) Diabetic 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 associated with type 2 diabetes mellitus: Code(s): E11.42 - Type 2 diabetes mellitus with diabetic 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 Category: Medical Plan: Advised better control of blood sugars and avoidance of carbs and sugars. (3) CKD (chronic kidney disease) stage 3, GFR 30-59 ml/min: Code(s): N18.30 - Chronic kidney disease, stage 3 unspecified Category: Medical Qualifiers: Chronic kidney disease stage 3 subtype: stage 3a (GFR 45-59) Qualified Code(s): N18.31 - Chronic kidney disease, stage 3a Plan: Continue to avoid kidney irritants such as NSAIDs and stay well hydrated. (4) Hypertension: Code(s): I10 - Essential (primary) hypertension Category: Medical Qualifiers: Hypertension type: essential hypertension Qualified Code(s): I10 - Essential (primary) hypertension Plan: Continue on current blood pressure medication. Avoid salt intake and encourage healthy diet and regular exercise. (5) Hypercholesterolemia: Code(s): E78.00 - Pure hypercholesterolemia, unspecified Category: Medical Plan: Avoid foods that are high in cholesterol such as red meat, fried foods, eggs and baked goods. Triglyceride goal of less than 150 and LDL goal of less than 100. Continue on atorvastatin 40. Ordered for updated blood work as last cholesterol was not within goal. (6) Obesity (BMI 30-39.9): Code(s): E66.9 - Obesity, unspecified Category: Medical Plan: Healthy diet and regular exercise is encouraged. Plan Continuous glucose monitoring with Dexcom is critical for patient oversight. Proposed dietary changes include reducing high-carbohydrate food intake to support effective blood glucose control and manage cardiovascular risks. With hypertension and hypercholesterolemia involvement, a routine fasting lipid profile will help in managing such risks more effectively. Patient education focuses on the minimization of sweets and reinforcement of cardiovascular complication avoidance. Follow-up is designated in three months to evaluate the effectiveness of the current strategy and address ongoing healthcare needs. This note was constructed using voice recognition software. While every effort has been made to ensure accuracy and psychiatric secretary, still areas may have been included sometimes these areas may affect the content or meeting of the given symptoms. Total time spent caring for the patient today was 20 minutes. This includes time spent before the visit reviewing the chart, time spent during the visit, and time spent after the visit and documentation. Patient was informed and verbally consented to the use of an ambient scribe for clinic note documentation during this visit. 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
[2024-11-25 08:11] VITALS: BP 130/64; PULSE 61; TEMP 36.2; O2SAT 95; BMI 30.8
== END 2024-11-25 08:54 | disposition home or self-care (01) ==
LOC: HO.HMCH 08:07
PROVIDERS: PCP Internal Medicine
DX: I12.9 Hypertensive chronic kidney disease with stage 1 through stage 4 chronic kidney disease, or unspecified chronic kidney disease (principal); E11.65 Type 2 diabetes mellitus with hyperglycemia; Z79.4 Long term (current) use of insulin; E11.42 Type 2 diabetes mellitus with diabetic 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; N18.31 Chronic kidney disease, stage 3a; Z68.30 Body mass index [BMI] 30.0-30.9, adult; E66.9 Obesity, unspecified; E78.00 Pure hypercholesterolemia, unspecified

== ENCOUNTER → 2024-11-25 08:06 | Outpatient (BNVA) | payer MEDICARE, SELFPAY | PROVIDERS: PCP Internal Medicine | DX: E11.65 Type 2 diabetes mellitus with hyperglycemia (principal); E11.42 Type 2 diabetes mellitus with diabetic 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; I12.9 Hypertensive chronic kidney disease with stage 1 through stage 4 chronic kidney disease, or unspecified chronic kidney disease; E11.22 Type 2 diabetes mellitus with diabetic chronic kidney disease; N18.31 Chronic kidney disease, stage 3a; E78.00 Pure hypercholesterolemia, unspecified; E66.9 Obesity, unspecified; Z68.30 Body mass index [BMI] 30.0-30.9, adult; Z71.3 Dietary counseling and surveillance; Z79.4 Long term (current) use of insulin | CPT/HCPCS: 83036; 99212 ==

== ENCOUNTER 2025-02-27 09:36 | Outpatient (REF) | payer MEDICARE, SELFPAY ==
[2025-02-27 12:00] LABS: Cholesterol 164 mg/dL (<200); HDL Cholesterol 33 mg/dL (>40); Triglycerides 76 mg/dL (<150)
== END 2025-02-27 09:37 | disposition home or self-care (01) ==
LOC: HO.HMGCLDS 09:36
PROVIDERS: PCP Internal Medicine; Visit Provider Internal Medicine
DX: E78.00 Pure hypercholesterolemia, unspecified (principal)
CPT/HCPCS: 36415; 80061

== ENCOUNTER 2025-03-31 08:27 | Outpatient (REF) | payer MEDICARE, SELFPAY ==
--- NOTE | ~2025-03-31 | XR_ITS ---
EXAMINATION: XR CHEST CLINICAL INFORMATION: R63.4 - Abnormal weight loss COMPARISON: August 26, 2018 TECHNIQUE: PA and lateral views. FINDINGS: No consolidation, pleural effusion or pneumothorax. No hyperinflation. Cardiomediastinal silhouette size is normal. Multilevel thoracic spondylosis. XR/XR chest 2V IMPRESSION: No acute airspace disease. Multilevel spondylosis suggesting DISH. Electronically signed by: Gildardo Reynoso MD 03/31/2025 11:29 AM EDT
[2025-03-31 10:14] LABS: MANUAL DIFF FLAG NO
[2025-03-31 11:08] LABS: Hematocrit 49.5 % (42.0-52.0); Hemoglobin 17.6 g/dl (14.0-18.0); Imm Gran Abs Auto 0.02 X10*3/uL (0.00-0.03); Imm Gran Pct Auto 0.3 % (0.0-0.4); Lymphocytes Absolute Auto 1.7 X10*3/uL (1.2-4.9); Mean Corpuscular HGB Conc 35.6 g/dl (31.0-36.0); Mean Corpuscular Hemoglobin 30.7 pg (27.0-33.0); Mean Corpuscular Volume 86.2 fL (80.0-98.0); NRBC Abs Auto 0.000 X10*3/uL (0.0-0.012); NRBC Pct Auto 0.0 /100WBC (0.0-0.2); Platelet Count 275 X10*3/uL (160-400); Red Blood Count 5.74 X10*6/uL (4.60-5.80); White Blood Count 5.9 X10*3/uL (4.8-10.8)
[2025-03-31 12:06] LABS: Alanine Aminotransferase 23 U/L (0-40); Albumin Level 4.5 g/dL (3.5-5.0); Alkaline Phosphatase 142 U/L (39-117); Anion Gap 12 (12-20); Aspartate Amino Transferase 21 U/L (5-37); Blood Urea Nitrogen 15 mg/dL (9-16); Calcium 9.7 mg/dL (8.4-10.2); Carbon Dioxide 30 mmol/L (22-29); Chloride 103 mmol/L (96-108); Estimated Glomerular Filt Rate 49; Free T4 (Free Thyroxine) 0.88 ng/dL (0.71-1.85); Magnesium 2.0 mg/dL (1.6-2.6); Potassium 4.2 mmol/L (3.3-5.1); Sodium 141 mmol/L (135-145); Thyroid Stimulating Hormone 1.44 uIU/mL (0.32-4.0); Total Protein 8.3 g/dL (6.5-8.0)
[2025-03-31 12:25] LABS: Folate 5.4 ng/mL (> or = 4.0); Vitamin B12 541 pg/mL (200-900)
[2025-03-31 12:39] LABS: Appearance Urine Clear; Glucose Urine UA >=1000 mg/dL (Negative); PH 5.0 (5.0-9.0); Specific Gravity - Urine >= 1.030 (1.005-1.025); UMIC TRIGGER UACC YES
== END 2025-03-31 08:28 | disposition home or self-care (01) ==
LOC: HO.XRAY 08:27
PROVIDERS: PCP Internal Medicine; Visit Provider Internal Medicine
DX: Z12.5 Encounter for screening for malignant neoplasm of prostate (principal); R63.4 Abnormal weight loss; R30.0 Dysuria; E11.65 Type 2 diabetes mellitus with hyperglycemia; E78.00 Pure hypercholesterolemia, unspecified; I77.810 Thoracic aortic ectasia; E11.22 Type 2 diabetes mellitus with diabetic chronic kidney disease; I12.9 Hypertensive chronic kidney disease with stage 1 through stage 4 chronic kidney disease, or unspecified chronic kidney disease; N18.31 Chronic kidney disease, stage 3a; R13.10 Dysphagia, unspecified; N39.0 Urinary tract infection, site not specified; Z79.4 Long term (current) use of insulin; Z86.711 Personal history of pulmonary embolism
CPT/HCPCS: 36415; 71046; 80053; 81001; 82607; 82746; 83036; 83735; 84153; 84439; 84443; 85025; 99212

== ENCOUNTER 2025-03-31 08:27 | Outpatient (AMB) | payer MEDICARE, SELFPAY ==
--- OUTSIDE RECORDS SUMMARY | 2023-11-20 11:20 | XMS_ITS ---
Author Organization [facility] Address [address] [place] [address] Care Team Providers Care Hot Dip Plating Supervisor Name Role Phone Pearl Álvarez MD Primary Care Provider Balta Johnson [phone] REASON FOR VISIT positive cologuard Encounters Encounter Location Date Provider Diagnosis [facility] [address] [place] [address] 11/20/2023 Balat Ricks Plan Of Treatment No Information Progress Notes * EDGAR TYE EDOB:1950 (74 yo M)Acc No.[id number]:11/20/2023 Progress Notes Patient: TYE ROBIN Provider: Eula Ricks MD :1950 A ge:72 Y S ex:Male Date:11/20/2023 Address[address] [facility] Pcp:Pearl Álvarez MD Subjective: * Chief Complaints: * 1 . Positive cologuard. * Medical History: Objective: * Vitals: Assessment: Plan: * Treatment: * * The named appointment provid er may or may not be the originator of this progress note, and it is not deemed complete until electronically signed by the appointment provider. Sign off status: Pending * Provider: Eula Ricks MD Date: 11/20/2023 Generated for Printi ng/Faxing/eTransmitting on: 03/31/2025 09:20 AM EDT
[2025-03-31 08:39] VITALS: BP 136/82; PULSE 60; O2SAT 97; BMI 29.9
--- NOTE | 2025-03-31 08:39 | A.OFFPC_ITS ---
Vital Signs 03/31/25 08:39 Height 6 ft 2 in Weight 233 lb BMI 29.9 BP 136/82 Blood Pressure Location Lt brachial Position Sitting Pulse 60 Pulse Source Pulse Oximeter Pulse Oximetry (%) 97 Oxygen Delivery Method Room Air Intake Visit Reasons: f/u DM w/ Po Intake Note: Funky toenail, difficulty swallowing, neck and shoulder pain Allergies lisinopril Allergy (Unknown, Verified 03/31/25 08:45) cough Sulfa (Sulfonamide Antibiotics) Allergy (Unknown, Verified 03/31/25 08:45) Unknown DONAL Inhibitors (DONAL INHIBITORS) Adverse Reaction (Intermediate, Verified 03/31/25 08:45) COUGH tirzepatide Adverse Reaction (Intermediate, Verified 03/31/25 08:45) Nausea jardiance Adverse Reaction (Intermediate, Uncoded 03/31/25 08:45) weakness Tobacco use date assessed: 11/25/24 Fall risk assessment: No Falls in past year Last assessed Fall Risk: 03/31/25 Dental Screening Dental Screen Date: 09/02/24 HPI f/u DM w/ Po HPI Details 2 weeks ago moved heavy things and had R neck pain- seen josephine and was toldmuscle spasm and will have PT. 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 Family/Other Diabetes Social History Housing: House Alcohol intake: current Alcohol intake frequency: holidays/special occasions only Alcohol type: beer Patient Tobacco Use Status: Never used Tobacco Tobacco use type: Cigarette e-Cigarette/Vaping Use: Never Used Second Hand Smoke Exposure: No service: No Current occupational status: retired Cognitive needs: No Hearing needs: No Vision needs: Yes Questionnaire Thrive Questionnaire Date Thrive assessed: 11/25/24 I am a: Patient What is your living situation today?: I have a steady place to live Within the past 12 months, did the food you bought not last and you didn't have the money to get more?: I choose not to answer this question Within the past 12 months, did you worry whether your food would run out before you got money to buy more?: Never true Do you have trouble paying for medicines?: No Do you have trouble getting transportation to medical appointments?: No Do you have trouble paying your heating and electricity bill?: No Do you have trouble taking care of your child, family member or friend?: No Do you have trouble with day-to-day activities such as bathing, preparing meals, shopping, managing finances, etc.?: No Are you currently unemployed and looking for a job?: No Are you interested in more education?: No Please select the resources that you would like help with: None Currently or been in a relationship where the following occur: No concerns reported THRIVE Score: 0 APOORVA-7 AMB Questionnaire APOORVA-7 Date APOORVA - 7 assessed: 11/25/24 Source: Developed by Drs. Balta Reyes, Estefania Singh, Hiram Driver and colleagues, with an educational alonso from [employer]. Physical exam (Primary Care) Vital Signs: Last Vital Signs Pulse 60 03/31/25 08:39 BP 136/82 03/31/25 08:39 Pulse Ox 97 03/31/25 08:39 Oxygen Delivery Method Room Air 03/31/25 08:39 BMI result Body Mass Index 29.9 Tobacco/Smoking Status: Tobacco use Status Tobacco use date assessed 11/25/24 03/31/25 08:41 Patient Tobacco Use Status Never used Tobacco 03/31/25 08:41 Tobacco use type Cigarette 03/31/25 08:41 e-Cigarette/Vaping Use Never Used 03/31/25 08:41 Thrive Assessment: Date of Thrive Assessment Date Thrive assessed 11/25/24 03/31/25 08:41 Currently or been in a relationship where the following occur: No concerns reported Const General: alert; No acute distress Eyes Conjunctivae: conjunctivae normal Resp Auscultation: clear to auscultation bilaterally Cardio Rate: regular rate Rhythm: regular rhythm GI Inspection: Yes normal to inspection Extrem General: Yes normal to inspection and No edema Results AMB Hemoglobin A1c AMB Hemoglobin A1c 9.5 % Last Edit by Irina Casiano CMA on 03/31/25 09 :01 Results Reviewed Results Reviewed: Laboratory Last Values Hgb A1c (Clinic) 9.5 % (4.0-6.0) H 03/31/25 08:46 Coding Level of Care Code Est Pt Level 4 (90041) Complex EM visit Add On G2211 Diagnoses Type 2 diabetes mellitus with hyperglycemia, with long-term current use of insulin E11.65; Z79.4 Diabetes mellitus group home insulin use: with group home use History of pulmonary embolism Z86.711 Essential hypertension I10 Hypertension type: essential hypertension Hypercholesterolemia E78.00 Ascending aorta dilatation I77.810 Stage 3a chronic kidney disease N18.31 Chronic kidney disease stage 3 subtype: stage 3a (GFR 45-59) Weight loss R63.4 Dysphagia R13.10 UTI (urinary tract infection) N39.0 Assessment & Plan Assessment & Plan (1) Type 2 diabetes mellitus with hyperglycemia: Code(s): E11.65 - Type 2 diabetes mellitus with hyperglycemia Category: Medical Qualifiers: Diabetes 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 Hemoglobin A1c goal of less than 7.0. Patient is taking Trulicity 4.5 mg once a week Basaglar insulin 30 units once a day twice a day metformin a 1000 twice a day (2) History of pulmonary embolism: Comment: 06/2019? 2013, 10/2023 Code(s): Z86.711 - Personal history of pulmonary embolism Category: Medical Plan: Continuing the and anticoagulation with Eliquis 5 mg twice a day (3) Hypertension: Code(s): I10 - Essential (primary) hypertension Category: Medical Qualifiers: Hypertension type: essential hypertension Qualified Code(s): I10 - Essential (primary) hypertension Plan: Continue with blood pressure medication. Decrease salt intake and exercise amlodipine 5 mg once a day losartan 50 mg once a day (4) Hypercholesterolemia: Code(s): E78.00 - Pure hypercholesterolemia, unspecified Category: Medical Plan: Avoid fried foods, chicken skin, eggs, butter margarine, pastries and meat. Be it pork or beef they have a lot of cholesterol LDL goal of less than 100 and triglyceride of less than 150 on atorvastatin 40 mg once a day (5) Ascending aorta dilatation: Comment: 10/2023 4.1 cm Code(s): I77.810 - Thoracic aortic ectasia Category: Medical Plan: Discussed about surveillance of iron ascending aorta dilatation (6) CKD (chronic kidney disease) stage 3, GFR 30-59 ml/min: Code(s): N18.30 - Chronic kidney disease, stage 3 unspecified Category: Medical Qualifiers: Chronic kidney disease stage 3 subtype: stage 3a (GFR 45-59) Qualified Code(s): N18.31 - Chronic kidney disease, stage 3a Plan: Keep well hydrated avoid NSAIDs (7) Weight loss: Code(s): R63.4 - Abnormal weight loss Category: Medical Plan: Concern about with the weight loss (8) Dysphagia: Code(s): R13.10 - Dysphagia, unspecified Category: Medical (9) UTI (urinary tract infection): Code(s): N39.0 - Urinary tract infection, site not specified Category: Medical Plan History of Present Illness The patient is a 74-year-old male presenting for follow-up of multiple chronic conditions including diabetes mellitus, hypertension, and obstructive sleep apnea. The patient has a history of diabetes mellitus with a hemoglobin A1c of 9.5, indicating poor glycemic control. He reports fluctuations in blood glucose levels, with episodes of hypoglycemia and hyperglycemia, and is currently on Trulicity, Basaglar insulin, and metformin. The patient experiences vision changes when blood glucose levels are high and has difficulty swallowing, which may be exacerbated by Trulicity. The patient has a history of obstructive sleep apnea but is unable to tolerate CPAP therapy. He also has hypercholesterolemia with an LDL level of 116 mg/dL, which is above the target of less than 100 mg/dL. The patient has a history of hypertension, managed with amlodipine and losartan. He also has chronic kidney disease with a creatinine level of 1.57 mg/dL. The patient has a history of pulmonary embolism and deep vein thrombosis, with the most recent episode in 2023, and is on anticoagulation therapy with Eliquis. He also has ascending aortic dilatation, last evaluated in October 2023. The patient reports a recent urinary tract infection and balance difficulties, with episodes of falling and dizziness. He has a fungal toenail infection and is advised to see a supply chain systems manager. Health Maintenance - Surveillance of ascending aortic dilatation discussed - Advised to keep well hydrated and avoid NSAIDs Social History - Reports difficulty with balance, leading to falls - Reports recent weight loss of 7 pounds Review of Systems - General: Reports recent weight loss of 7 pounds - Cardiovascular: Denies chest pain - Respiratory: Denies shortness of breath - Gastrointestinal: Reports difficulty swallowing, denies abdominal pain - Neurological: Reports balance difficulties, denies headaches - Genitourinary: Reports recent urinary tract infection Physical Exam - Cardiovascular: Regular heart rhythm, no murmurs noted - Respiratory: No pain on breathing - Abdominal: No pain noted - Neurological: No dizziness when standing - Ears: Blocked, requiring cleaning Results - Labs: Hemoglobin A1c 9.5, creatinine 1.57 mg/dL, LDL 116 mg/dL Plan Patient was informed and verbally consented to the use of an ambient scribe for clinic note documentation during this visit. 1. Diabetes Mellitus The patient's diabetes mellitus is poorly controlled with a hemoglobin A1c of 9.5. He is currently on Trulicity, Basaglar insulin, and metformin. The plan includes adjusting the insulin regimen to better control blood glucose levels and considering endocrinology referral for further management. 2. Obstructive Sleep Apnea The patient has obstructive sleep apnea but is unable to tolerate CPAP therapy. Alternative management strategies need to be considered to address this condition. 3. Hypercholesterolemia The patient has hypercholesterolemia with an LDL level of 116 mg/dL. The plan includes maintaining atorvastatin therapy and aiming for an LDL goal of less than 100 mg/dL. 4. Hypertension The patient's hypertension is managed with amlodipine and losartan. Blood pressure control will be monitored and adjusted as necessary. 5. Chronic Kidney Disease The patient has chronic kidney disease with a creatinine level of 1.57 mg/dL. Renal function will be monitored regularly, and hydration status will be maintained. 6. Pulmonary Embolism The patient has a history of pulmonary embolism and is on anticoagulation therapy with Eliquis. Continued monitoring and management of anticoagulation therapy are necessary. 7. Deep Vein Thrombosis The patient has a history of deep vein thrombosis and is on anticoagulation therapy with Eliquis. Continued monitoring and management of anticoagulation therapy are necessary. 8. Ascending Aortic Dilatation The patient has ascending aortic dilatation, last evaluated in October 2023. Surveillance and regular follow-up are recommended to monitor the condition. 9. Urinary Tract Infection The patient reports a recent urinary tract infection. Further evaluation may be necessary if symptoms persist or recur. 10. Balance Difficulties The patient reports balance difficulties with episodes of falling. Further evaluation is needed to determine the underlying cause and appropriate management. 11. Dysphagia The patient reports difficulty swallowing, which may be related to Trulicity use. Referral to gastroenterology for further evaluation is planned. 12. Fungal Toenail Infection The patient has a fungal toenail infection and is advised to see a supply chain systems manager for further management. Discussion Notes During the visit, we discussed the patient's poorly controlled diabetes mellitus, with a hemoglobin A1c of 9.5, and the need to adjust his insulin regimen. We also addressed his obstructive sleep apnea, which he cannot manage with CPAP, and considered alternative strategies. The patient's hypercholesterolemia and hypertension management were reviewed, with a focus on maintaining atorvastatin therapy and monitoring blood pressure. We discussed the importance of regular follow-up for his chronic kidney disease and the need for surveillance of his ascending aortic dilatation. The patient was advised to see a supply chain systems manager for his fungal toenail infection and to follow up with gastroenterology for his dysphagia. We also planned to refer him to endocrinology for further diabetes management. Patient Instructions - Follow up with endocrinology for diabetes management - Continue current medications as prescribed - Schedule an appointment with a supply chain systems manager for toenail infection - Maintain hydration and avoid NSAIDs - Monitor blood glucose levels regularly - Follow up with gastroenterology for swallowing difficulties Orders: Orders AMB Hemoglobin A1c Today Z13.9 - Encounter for screening, unspecified Complete Blood Count Auto Diff Today R63.4 - Abnormal weight loss Free T4 (Free Thyroxine) Today R63.4 - Abnormal weight loss Thyroid Stimulating Hormone Today R63.4 - Abnormal weight loss US bladder Today N39.0 - Urinary tract infection, site not specified US renal BI Today N39.0 - Urinary tract infection, site not specified Comprehensive Met. Panel Today R63.4 - Abnormal weight loss Vitamin B12 and Folate Today R63.4 - Abnormal weight loss Prostate Specific Antigen Scr Today R63.4 - Abnormal weight loss UA CC w/rflx Micro + Cult Today R30.0 - Dysuria, R63.4 - Abnormal weight loss Magnesium Today R63.4 - Abnormal weight loss FL upper GI w Ba Swallow Today R13.10 - Dysphagia, unspecified XR chest 2V Today R63.4 - Abnormal weight loss Referrals Gastroenterology Referral R13.10 - Dysphagia, unspecified Podiatry Referral E11.65 - Type 2 diabetes mellitus with hyperglycemia, Z79.4 - terminal superintendent (current) use of insulin Endocrinology Referral E11.65 - Type 2 diabetes mellitus with hyperglycemia, Z79.4 - terminal superintendent (current) use of insulin Medications: Refilled insulin lispro (Admelog SoloStar U-100 Insulin lispro) with breakfast, lunch and supper 4 units (0.04 mL) subcut TID 15 mL 4RF N39.0 - Urinary tract infection, site not specified
--- OUTSIDE RECORDS SUMMARY | 2025-03-31 09:20 | XMS_ITS | Patient Health Record ---
Author Organization [facility] Address [address] [place] [address] Care Team Providers Care Decorating Equipment Setter Name Role Phone Po Pearl DENT Primary Care Provider Balta Johnson [phone] Allergies Allergen (clinical drug ingredient) Drug/Non Drug [...] Risk Notes Problem Diverticular disease of colon (883359688) Diverticulosis of large intestine without perforation or abscess without bleeding (K57.30) Active confirmed Problem 951739102 Gastroesophageal reflux disease, esophagitis presence not specified (K21.9) Active confirmed Problem [id number] Esophageal ring (K22.2) Active confirmed Problem [id number] Pharyngoesophage al dysphagia (R13.14) Active confirmed Plan Of Treatment Future Test Test Name Order Date UPPER GI ENDOSCOPY [place] DILATION OF ESOPH 09/06/2016 COLONOSCOPY 08/07/2023 Insurance Providers Payer Name Payer Address Payer Phone Subscriber Number Group Number Insured Name Patient Relationship to Insured Coverage Start Date Coverage End Date MEDICARE OF [place] [address] [place] [address] [id number] TYE HERNÁNDEZ Self - patient is the insured [employer] ATTN CLAIMS [address] [place] [phone] [id number] TYE HERNÁNDEZ Self - patient is the insured Medical (General) History Medical History History ICD Code Negative screening colonosco py 01-27-2010 except for diverticulosis and internal hemorrhoids; he also had a negative colonoscopy in 2001 at [place] Depression IDDM Hyperlipidemia Hypertension Kidney stones DVT in Left leg--had a pulmonary emnbolu s--2013 GERD and dysphagia-Distal es ophageal ring--EGD 01/2017-18mm balloon dilation; small hiatal hernia; no esophagitis nor Rodríguez's esophagus Denies OR,CVA,Lung disease,renal disease Negative sleep study Negtaive ETT + Cologuard in 2022 Surgical History Surgery Date(Month/Year) Removal of a cyst under the left arm
== END 2025-03-31 09:38 | disposition home or self-care (01) ==
LOC: HO.HMCH 08:28
PROVIDERS: PCP Internal Medicine; Visit Provider Internal Medicine
DX: E11.65 Type 2 diabetes mellitus with hyperglycemia (principal); Z79.4 Long term (current) use of insulin; N18.31 Chronic kidney disease, stage 3a; Z86.711 Personal history of pulmonary embolism; I10 Essential (primary) hypertension; E78.00 Pure hypercholesterolemia, unspecified; I77.810 Thoracic aortic ectasia; R63.4 Abnormal weight loss; R13.10 Dysphagia, unspecified; N39.0 Urinary tract infection, site not specified

== ENCOUNTER → 2025-03-31 10:18 | Outpatient (BNV) | payer MEDICARE, SELFPAY | PROVIDERS: PCP Internal Medicine; Visit Provider Radiology Diagnostic Radiology | DX: R63.4 Abnormal weight loss (principal) | CPT/HCPCS: 71046 ==

== ENCOUNTER 2025-04-07 10:32 | Outpatient (AMB) | payer MEDICARE, SELFPAY ==
--- OUTSIDE RECORDS SUMMARY | 2023-11-20 11:20 | XMS_ITS ---
Author Organization [facility] Address [address] [place] [address] Care Team Providers Care Scruff Worker Name Role Phone Pearl Álvarez MD Primary Care Provider Balta Johnson [phone] REASON FOR VISIT positive cologuard Encounters Encounter Location Date Provider Diagnosis [facility] [address] [place] [address] 11/20/2023 Balta Ricks Plan Of Treatment Next Appt Details Provider Name:Balta Saldana Millicent , 07/28/2025 01:20:00 PM, [address], [address], [place], [address], Progress Notes * TYE HERNÁNDEZ EDOB:1950 (74 yo M)Acc No.[id number]:11/20/2023 Progress Notes Patient: May LU TYE Peterson Provider: Eula Ricks MD :1950 A ge:72 Y S ex:Male Date:11/20/2023 Address:[address] [place], [place] Pcp:Pearl Álvarez MD Subjective: * Chief Complaints: [...] MD Date: 0 11/20/2023 Generated for Arnol samuels/Katlin/Baljeetitting on: 1 12:07 PM EDT
--- NOTE | 2025-04-07 10:37 | MHC.OFFVIS ---
Vital Signs 04/07/25 10:38 Height 6 ft 2 in Weight 240 lb 1.334 oz BMI 30.8 BP 136/74 Blood Pressure Location Rt brachial Position Sitting Pulse 67 Pulse Source Pulse Oximeter Pulse Oximetry (%) 98 Oxygen Delivery Method Room Air Intake Visit Reasons: Type 2 diabetes mellitus with hyperglycemia Intake Note: NEW Patient presents today to establish treatment for Type 2 Diabetes Mellitus/Hyperglycemia: Last Diabetic eye exam was on: 09/09/2024, [facility] Last Podiatry exam was on: Patient does not see a Contact Worker Lithography Most recent HbA1c: 9.5%, 03/31/2025 Random Glucose:? ? ?248 ? ? ?mg/dL Gas Load Dispatcher Required: No Accompanied by: Self / Same As Patient Allergies lisinopril Allergy (Unknown, Verified 04/07/25 10:41) cough Sulfa (Sulfonamide Antibiotics) Allergy (Unknown, Verified 04/07/25 10:41) Unknown DONAL Inhibitors (DONAL INHIBITORS) Adverse Reaction (Intermediate, Verified 04/07/25 10:41) COUGH tirzepatide Adverse Reaction (Intermediate, Verified 04/07/25 10:41) Nausea jardiance Adverse Reaction (Intermediate, Uncoded 04/07/25 10:41) weakness HPI Comments Details: 74-year-old with >30-year history of diabetes mellitus, presenting for follow-up due to persistent hyperglycemia. Reports average blood glucose frequently >350 mg/dL, with 73% of CGM readings above target over the past 2 weeks. Current regimen includes Trulicity 3 mg weekly (tolerated; prior Ozempic and Mounjaro discontinued due to GI side effects), Basaglar 30 units BID (increased to 40 units BID today), metformin 1000 mg BID, and Lispro 4 units with meals (to be increased per new sliding scale). Patient previously seen by [facility]. This is the 1st time that I see the patient. Reports feeling overall well and does not have any complaints other than noticing that his blood sugars are high. Reports Chronic memory issues; assists with medication adherence. Undergoing renal/bladder ultrasound this week. The patient was diagnosed with diabetes mellitus approximately 30 years ago, around 1993. Current Medications: Trulicity 3 mg weekly (tolerated; other GLP-1s caused GI side effects) Basaglar (insulin glargine) 30 units BID Metformin 1000 mg BID Lispro 4 units with meals Previous Medications: Did not tolerate Jardiance in the past, Mounjaro caused nausea Hypoglycemia: Rare, mild episodes (twice in past 2-3 months), recognized and self-managed Diet: Skips breakfast, minimal lunch (often chicken or eggs), variable dinner (chicken, pasta, pizza, burger, steak) Admits to frequent junk food, but working on improvement. 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 No retinopathy or visual complications reported Podiatry: No formal podiatric care Physical exam: General: Well appearing. NAD. Not Cushingoid or Acromegalic Neck/Thyroid: Thyroid not palpable, no nodules. Eyes: No conjunctival injection CV: RRR, no murmur. No edema. Peripheral pulses 1+ bilaterally Resp:Lungs clear to auscultation bilaterally Abdomen: Soft, nontender. nondistended Extremities/Neuro: No weakness or tremor of outstretched hands Diabetic Foot Exam: Preserved sensitivity to monofilament exam bilaterally Laboratory Tests 06/01/24 03/31/25 10:16 10:13 Creatinine 1.42 H Estimated GFR 49 Random Glucose 190 H TSH 1.44 Free T4 0.88 Urine Creatinine 64.22 Urine Microalbumin < 5.0 CGM data: Interpretation: Persistent hyperglycemia in the setting of insufficient insulin dosing, inadequate insulin use (forgetting doses), and dietary transgressions. We will adjust insulin dosage and provide education in regards to diet recommendations. [facility] Medical History (Updated 03/31/25 @ 09:21 by Pearl Álvarez MD) Dysphagia Anxiety and depression Colon cancer screening Adult general medical exam Screening for prostate cancer Diabetic 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 associated with type 2 diabetes mellitus half-way (current) use of insulin Vitamin D deficiency Carpal tunnel syndrome, right Laceration of thumb, right, complicated CKD (chronic kidney disease) stage 3, GFR 30-59 ml/min Benign esophageal stricture Fracture of right heel History of renal calculi Hypertension Hypercholesterolemia Obesity (BMI 30-39.9) Obstructive sleep apnea History of pulmonary embolism Type 2 diabetes mellitus with hyperglycemia Surgical History History of colonoscopy Family History Father Hypertension CVD (cardiovascular disease) Prostate enlargement Mother No problems noted. Family/Other Diabetes Social History Housing: House Alcohol intake: current Alcohol intake frequency: holidays/special occasions only Alcohol type: beer Patient Tobacco Use Status: Never used Tobacco Tobacco use type: Cigarette e-Cigarette/Vaping Use: Never Used Second Hand Smoke Exposure: No service: No Current occupational status: retired Cognitive needs: No Hearing needs: No Vision needs: Yes Physical Exam Vital Signs: Last Vital Signs Pulse 67 04/07/25 10:38 BP 136/74 04/07/25 10:38 Pulse Ox 98 04/07/25 10:38 Oxygen Delivery Method Room Air 04/07/25 10:38 BMI result Body Mass Index 30.8 Office Procedures Glucose Monitoring Details Details: See HPI 63089 - Glucose Monitoring, continuous Procedure code (CPT) selection complete Results Reviewed Results Reviewed: Laboratory Last Values Glucose (Clinic) 248 mg/dL (60-115) H 04/07/25 10:46 Assessment & Plan Assessment & Plan (1) Type 2 diabetes mellitus with hyperglycemia: Code(s): E11.65 - Type 2 diabetes mellitus with hyperglycemia Category: Medical Qualifiers: 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 insulin 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: with rodent exterminator use Qualified Code(s): E11.65 - Type 2 diabetes mellitus with hyperglycemia; Z79.4 - half-way (current) use of insulin Plan Type 2 Diabetes Mellitus, poorly controlled 30-year history, persistent hyperglycemia (CGM: 73% readings very high, average BG 310 mg/dL) Current regimen: Trulicity 3 mg weekly, Basaglar 30 units BID (increased to 40 units BID), metformin 1000 mg BID, Lispro 4 units with meals (to be increased) Rare mild hypoglycemia, no severe episodes Contributing factors: suboptimal insulin dosing, inconsistent meal patterns, high intake of processed/junk food, no formal exercise Plan Increase Basaglar (insulin glargine) to 40 units BID Initiate new sliding scale for Lispro with meals (doses to be titrated based on BG readings) Continue Trulicity 3 mg weekly (well-tolerated) Continue metformin 1000 mg BID Reinforce importance of not skipping meals, especially breakfast, and encourage more consistent meal timing Provide education on insulin injection site rotation Refill Trulicity and Lantus insulin Monitor for hypoglycemia; patient and spouse instructed to contact office if frequent or severe lows occur Encourage gradual dietary improvements (reduce processed/junk food, increase vegetables/protein) Encourage regular, moderate physical activity as tolerated Order labs: microalbumin, lipid panel, basic metabolic panel Orders: Orders Basic Metabolic Panel Today E11.65 - Type 2 diabetes mellitus with hyperglycemia, Z79.4 - 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 AMB Glucose Monitoring Today E11.65 - Type 2 diabetes mellitus with hyperglycemia, Z79.4 - half-way (current) use of insulin Microalbumin, Random (w Creat) Today E11.65 - Type 2 diabetes mellitus with hyperglycemia, Z79.4 - half-way (current) use of insulin Lipid Panel Today E11.65 - Type 2 diabetes mellitus with hyperglycemia, Z79.4 - 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
[2025-04-07 10:38] VITALS: BP 136/74; PULSE 67; O2SAT 98; BMI 30.8
[2025-04-07 10:52] LABS: Glucose, Whole Blood 248 mg/dL (60-115)
--- OUTSIDE RECORDS SUMMARY | 2025-04-07 12:08 | XMS_ITS ---
Author Name [facility] Organization Unknown Encounters Encounter Type Encounter Reason Primary Diagnosis Location Date Ambulatory [facility] 04/07/2025
--- OUTSIDE RECORDS SUMMARY | 2025-04-07 12:08 | XMS_ITS | Patient Health Record ---
Author Organization [facility] Address [address] [place] [address] Care Team Providers Care Senior Safety Support Manager Name Role Phone Po Pearl DENT Primary Care Provider Balta Johnson [phone] Allergies Allergen (clinical drug ingredient) Drug/Non Drug [...] Risk Notes Problem Diverticular disease of colon (646971005) Diverticulosis of large intestine without perforation or abscess without bleeding (K57.30) Active confirmed Problem 991991836 Gastroesophageal reflux disease, esophagitis presence not specified (K21.9) Active confirmed Problem 707382152 Esophageal ring (K22.2) Active confirmed Problem 76498229 Pharyngoesophage al dysphagia (R13.14) Active confirmed Plan Of Treatment Future Test Test Name Order Date UPPER GI ENDOSCOPY BALLOOON DILATION OF ESOPH 09/06/2016 COLONOSCOPY 08/07/2023 Next Appt Details Provider Name:Balta Ricks , 07/28/2025 01:20:00 PM, [address] [place] [address], [address], [place], [address], Insurance Providers Payer Name Payer Address Payer Phone Subscriber Number Group Number Insured Name Patient Relationship to Insured Coverage Start Date Coverage End Date MEDICARE OF [place] [address] [facility] [place] [address] [id number] TYE HERNÁDNEZ Self - patient is the insured MEDEX ATTN CLAIMS [address] [place] [address] [id number] TYE HERNÁNDEZ Self - patient is the insured Medical (General) History Medical History History ICD Code Negative screening colonosco py 01-27-2010 except for diverticulosis and internal hemorrhoids; he also had a negative colonoscopy in 2001 at [facility] Depression IDDM Hyperlipidemia Hypertension Kidney stones DVT in Left leg--had a pulmonary emnbolu s--2013 GERD and dysphagia-Distal es ophageal ring--EGD 01/2017-18mm balloon dilation; small hiatal hernia; no esophagitis nor Rodríguez's esophagus Denies [place],CVA,Lung disease,renal disease Negative sleep study Negtaive ETT + Cologuard in 2022 Surgical History Surgery Date(Month/Year) Removal of a cyst under the left arm
== END 2025-04-07 11:31 | disposition home or self-care (01) ==
LOC: HO.ENCR 10:33
PROVIDERS: PCP Internal Medicine; Visit Provider Student in an Organized Health Care Education/Training Program
DX: E11.65 Type 2 diabetes mellitus with hyperglycemia (principal); Z79.4 Long term (current) use of insulin
CPT/HCPCS: 99215

== ENCOUNTER 2025-04-07 10:32 | Outpatient (REF) | payer MEDICARE, SELFPAY ==
[2025-04-07 12:31] LABS: Anion Gap 11 (12-20); Blood Urea Nitrogen 18 mg/dL (9-16); Calcium 9.4 mg/dL (8.4-10.2); Carbon Dioxide 28 mmol/L (22-29); Chloride 107 mmol/L (96-108); Cholesterol 164 mg/dL (<200); Estimated Glomerular Filt Rate 53; HDL Cholesterol 38 mg/dL (>40); Potassium 4.7 mmol/L (3.3-5.1); Sodium 141 mmol/L (135-145); Triglycerides 130 mg/dL (<150)
[2025-04-07 13:32] LABS: Microalbum/Creatinine Ratio Ur 7.4 ug/mg cr (<30)
== END 2025-04-07 10:33 | disposition home or self-care (01) ==
LOC: HO.LAB 10:32
PROVIDERS: PCP Internal Medicine; Visit Provider Student in an Organized Health Care Education/Training Program
DX: E11.65 Type 2 diabetes mellitus with hyperglycemia (principal); Z79.84 Long term (current) use of oral hypoglycemic drugs; Z79.4 Long term (current) use of insulin
CPT/HCPCS: 36415; 80048; 80061; 82043; 82570; 82947; 95250; 99212

== ENCOUNTER 2025-05-06 08:28 | Outpatient (AMB) | payer MEDICARE, SELFPAY ==
--- OUTSIDE RECORDS SUMMARY | 2023-11-20 11:20 | XMS_ITS ---
Author Organization [facility] Address [address] [place] [address] Care Team Providers Care Manager Transition Name Role Phone Pearl Álvarez MD Primary Care Provider Balta Johnson [phone] REASON FOR VISIT positive cologuard Encounters Encounter Location Date Provider Diagnosis [facility] [address] [place] [address] 11/20/2023 Balta Ricks Plan Of Treatment Next Appt Details Provider Name:Balta Saldana Millicent , 07/28/2025 01:20:00 PM, [address], [address], [place], [address], Progress Notes * TYE HERNÁNDEZ EDOB:1950 (74 yo M)Acc No.[id number]:11/20/2023 Progress Notes Patient: May LU TYE Peterson Provider: Eula Ricks MD :1950 A ge:72 Y S ex:Male Date:11/20/2023 Address:[address] [place], [place] Pcp:Pearl Álvarez MD Subjective: * Chief Complaints: [...] 11/20/2023 Generated for Arnol samuels/Katlin/Baljeetitting on: 1 09:08 AM EDT
--- NOTE | 2025-05-06 08:54 | MHC.OFFVIS ---
Intake Visit Reasons: elevated PSA Intake Note: New patient presents today for initial visit for elevated PSA 03/31 PSA:7.11 Urology Medication:Vitamin B12 Blood Thinner:Apixaban Antibiotic Allergies:None Allergies lisinopril Allergy (Unknown, Verified 05/06/25 08:54) cough Sulfa (Sulfonamide Antibiotics) Allergy (Unknown, Verified 05/06/25 08:54) Unknown DONAL Inhibitors (DONAL INHIBITORS) Adverse Reaction (Intermediate, Verified 05/06/25 08:54) COUGH tirzepatide Adverse Reaction (Intermediate, Verified 05/06/25 08:54) Nausea jardiance Adverse Reaction (Intermediate, Uncoded 04/07/25 10:41) weakness Medication List - Last Reconciled 05/06/25 by Navin Coombs MD amlodipine 5 mg PO DAILY apixaban (Eliquis) 5 mg PO BID atorvastatin 40 mg PO DAILY 90 days blood sugar diagnostic (FreeStyle Lite Strips) As directed check the [facility] TID blood-glucose sensor (FreeStyle Nori 3 Plus Sensor device) Use daily As directed to monitor glucose cyanocobalamin (vitamin B-12) 1,000 mcg PO DAILY dulaglutide (Trulicity) 4.5 mg (0.5 mL) subcut QWEEK finasteride (Proscar) 5 mg PO DAILY folic acid 1 mg PO DAILY 90 days glucose (Dex4 Glucose) 16 grams (4 x 4 gram) PO Q15M PRN insulin glargine (Basaglar KwikPen U-100 Insulin) 40 units (0.4 mL) subcut BID 30 days insulin lispro (Admelog SoloStar U-100 Insulin lispro) 4 units (0.04 mL) subcut TID losartan 50 mg PO DAILY metformin 1,000 mg PO BID naproxen sodium 220 mg PO BID PRN HPI Comments Details: 05/06/25--Donald is a new patient for elevated PSA. 03/31/2025 PSA 7.11 ng/mL. Comorbidities history of PE on Eliquis, Diabetes. History of Present Illness The patient is a 74-year-old male presenting with elevated Prostate-Specific Antigen (PSA) levels. The PSA level was recorded at 7.11 ng/mL in March, with previous tests indicating a gradual increase over the years. The patient has no family history of prostate cancer and reports no issues with urination, although he does experience nocturia, waking up two to three times per night. The patient has a history of Benign Prostatic Hyperplasia (BPH), which may contribute to the elevated PSA levels. The enlargement of the prostate is a normal condition as men age, potentially leading to increased PSA levels. The patient has a significant history of pulmonary embolism, having experienced approximately 14 episodes over the past 15 years. These episodes were initially caused by blood clots originating from the legs, and the patient is currently on Eliquis, a blood thinner, to manage this condition. The patient also has a history of diabetes mellitus, which is currently well-controlled with the use of a monitoring device. Results - Labs: 03/31/25--PSA level of 7.11 ng/mL --------02/19/23--PSA -------4.55 ng/mL - Urinalysis: Normal, no blood detected Plan 1. Elevated Prostate-Specific Antigen (Psa) - pt declines REBEKAH today - Ultrasound of the prostate and kidneys to assess prostate size. - Initiate treatment with finasteride 5 mg daily to reduce prostate size and potentially lower PSA levels. - Follow-up blood work to reassess PSA levels in four months. 2. Benign Prostatic Hyperplasia (Bph)/Nocturia - Monitor symptoms and response to finasteride treatment. 3. History Of Pulmonary Embolism - Continue current anticoagulation therapy with Eliquis. 4. Diabetes Mellitus - Continue current management and monitoring regimen. [facility] Medical History Dysphagia Anxiety and depression Colon cancer screening Adult general medical exam Screening for prostate cancer Diabetic 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 associated with type 2 diabetes mellitus terminal carman (current) use of insulin Vitamin D deficiency Carpal tunnel syndrome, right Laceration of thumb, right, complicated CKD (chronic kidney disease) stage 3, GFR 30-59 ml/min Benign esophageal stricture Fracture of right heel History of renal calculi Hypertension Hypercholesterolemia Obesity (BMI 30-39.9) Obstructive sleep apnea History of pulmonary embolism Type 2 diabetes mellitus with hyperglycemia Surgical History History of colonoscopy Family History Father Hypertension CVD (cardiovascular disease) Prostate enlargement Mother No problems noted. Family/Other Diabetes Social History Housing: House Alcohol intake: current Alcohol intake frequency: holidays/special occasions only Alcohol type: beer Patient Tobacco Use Status: Never used Tobacco Tobacco use type: Cigarette e-Cigarette/Vaping Use: Never Used Second Hand Smoke Exposure: No service: No Current occupational status: retired Cognitive needs: No Hearing needs: No Vision needs: Yes Review of Systems Const All systems reviewed & are unremarkable except as noted in HPI and below Reports no additional complaints Eyes Reports no additional complaints ENT Reports no additional complaints Card Reports no additional complaints Resp Reports no additional complaints GI Reports no additional complaints Reports as per HPI Musc Reports no additional complaints Skin/Breast Reports system reviewed and no additional complaints, except as documented Neuro Reports no additional complaints Psych Reports no additional complaints Endo Reports no additional complaints Manuel/Lymph Reports no additional complaints Aller/Immun Reports no additional complaints Physical Exam Const General: healthy appearing, no acute distress and well developed Orientation/consciousness: patient oriented x3 HEENT Head: Yes normocephalic and Yes atraumatic Eyes Conjunctivae: conjunctivae normal Neck Neck: Yes normal visual inspection Chest Chest palpation & inspection: normal inspection of the chest Resp Effort & Inspection: normal respiratory effort GI Inspection: Yes normal to inspection Neuro General: patient oriented x3 Psych Appearance: grossly normal Affect: normal affect Assessment & Plan Assessment & Plan (1) Anticoagulant long-term use: Code(s): Z79.01 - FDC (current) use of anticoagulants Category: Medical (2) Elevated PSA: Code(s): R97.20 - Elevated prostate specific antigen [PSA] Category: Medical (3) BPH associated with nocturia: Code(s): N40.1 - Benign prostatic hyperplasia with lower urinary tract symptoms; R35.1 - Nocturia Category: Medical (4) Diabetes: Code(s): E11.9 - Type 2 diabetes mellitus without complications Category: Medical Plan Plan 1. Elevated Prostate-Specific Antigen (Psa) - pt declines REBEKAH today - Ultrasound of the prostate and kidneys to assess prostate size. - Initiate treatment with finasteride 5 mg daily to reduce prostate size and potentially lower PSA levels. - Follow-up blood work to reassess PSA levels in four months. 2. Benign Prostatic Hyperplasia (Bph)/Nocturia - Monitor symptoms and response to finasteride treatment. 3. History Of Pulmonary Embolism - Continue current anticoagulation therapy with Eliquis. 4. Diabetes Mellitus - Continue current management and monitoring regimen. Medications: New finasteride (Proscar) 5 mg PO DAILY 90 tabs 3RF N40.1 - Benign prostatic hyperplasia with lower urinary tract symptoms, R35.1 - Nocturia Patient Instructions: The patient had an opportunity to ask questions regarding treatment plan. The patient expressed understanding and agreement with the above treatment plan. The patient is aware they should contact our office by phone for worsening of their current condition or the appearance of new symptoms. Compliance is encouraged with any medications and followup testing that is ordered. It is a privilege to be allowed the opportunity to participate in the urologic care of your patient. If you have any questions or concerns regarding treatment for the above conditions please do not hesitate to contact me. The office telephone contact is [phone]. This note is constructed in part using voice recognition software. While every effort has been made to ensure accuracy case picker errors may have been included. Yours sincerely, Navin Coombs MD Scribe Plan - Not visible on output: Patient was informed and verbally consented to the use of an ambient scribe for clinic note documentation during this visit. Coding Level of Care Code New Pt Level 4 (40428) Diagnoses Anticoagulant long-term use Z79.01 Elevated PSA R97.20 BPH associated with nocturia N40.1; R35.1 Diabetes E11.9
--- OUTSIDE RECORDS SUMMARY | 2025-05-06 09:08 | XMS_ITS | Patient Health Record ---
Author Organization [facility] Address [address] [place] [address] Care Team Providers Care Product Assembler Name Role Phone Po Pearl DENT Primary Care Provider Balta Johnson [phone] Allergies Allergen (clinical drug ingredient) Drug/Non Drug [...] TAKE 1 TABLET BY MOUTH EVERY DAY Oral; Duration: 30 Active Pravastatin Sodium 40 MG TAKE 1 TABLET BY MOUTH EVERY DAY Oral; Duration: 90 Active Lantus SoloStar 100 UNIT/ML INJCT 50 UNITS SUBCUTANEOUSLY ONCE DAILY Subcutaneous; Duration: 30 Active Amlodipine & Diet Manage Prod Active Omeprazole 20 MG TAKE ONE CAPSULE BY MOUTH EVERY DAY; Duration: 90 Not-Taking Fish Oil 1000 MG 1 capsule Orally Once a day Not-Taking Mounjaro 5 MG/0.5ML as directed Subcutaneous STARTING LATER IN 08/2023 AFTER THE COLONOSCOPY Active Folic Acid 1 MG 1 tablet Orally Once a day; Duration: 30 day(s) Active FLUoxetine HCl 20 MG TAKE 2 CAPSULES BY MOUTH EVERY DAY Oral; Duration: 90 Active metFORMIN HCl 1000 MG TAKE 1 TABLET BY MOUTH TWICE A DAY WITH MEALS Oral; Duration: 30 Active Trulicity 0.75 MG/0.5ML INJECT 0.5ML'S SUBCUTANEOUSLY ONCE A WEEK Subcutaneous; Duration: 28 Not-Taking Aspir-81 81 MG 1 tablet Orally Once a day Active Immunizations Vaccine Route Administration Date Status Comme nts Influenza Unknown 05/08/2016 Administered Influenza Unknown 08/07/2023 Administered Problems Problem Type SNOMED Code ICD Code Onset Dates Problem Status W/U Status Risk Notes Problem Diverticular disease of colon (796181682) Diverticulosis of large intestine without perforation or abscess without bleeding (K57.30) Active confirmed Problem Gastroesophageal reflux disease (016524950) Gastroesophageal reflux disease, esophagitis presence not specified (K21.9) Active confirmed Problem Esophageal ring (37785278) Esophageal ring (K22.2) Active confirmed Problem Dysphagia (48757149) Pharyngoesophageal dysphagia (R13.14) Active confirmed Plan Of Treatment Future Test Test Name Order Date UPPER GI ENDOSCOPY BALLOOON DILATION OF ESOPH 09/06/2016 COLONOSCOPY 08/07/2023 Next Appt Details Provider Name:Balta Ricks , 07/28/2025 01:20:00 PM, [address] [place] [address], [address], [place], [address], Insurance Providers Payer Name Payer Address Payer Phone Subscriber Number Group Number Insured Name Patient Relationship to Insured Coverage Start Date Coverage End Date MEDICARE OF [place] [address] [place] [address] [id number] TYE HERNÁNDEZ Self - patient is the insured MEDEX ATTN CLAIMS [address] [place] [address] [phone] [id number] TYE HERNÁNDEZ Self - patient is the insured Medical (General) History Medical History History ICD Code Negative screening colonosco py 01-27-2010 except for diverticulosis and internal hemorrhoids; he also had a negative colonoscopy in 2001 at [place] Depression IDDM Hyperlipidemia Hypertension Kidney stones DVT in Left leg--had a pulmonary emnbolu s--2013 GERD and dysphagia-Distal es ophageal ring--EGD 01/2017-18mm balloon dilation; small hiatal hernia; no esophagitis nor Rodríguez's esophagus Denies DC,CVA,Lung disease,renal disease Negative sleep study Negtaive ETT + Cologuard in 2022 Surgical History Surgery Date(Month/Year) Removal of a cyst under the left arm
== END 2025-05-06 09:35 | disposition home or self-care (01) ==
LOC: HO.HUSH 08:28
PROVIDERS: PCP Internal Medicine; Visit Provider Urology
DX: Z79.01 Long term (current) use of anticoagulants (principal); R97.20 Elevated prostate specific antigen [PSA]; N40.1 Benign prostatic hyperplasia with lower urinary tract symptoms; R35.1 Nocturia; E11.9 Type 2 diabetes mellitus without complications; N18.31 Chronic kidney disease, stage 3a
CPT/HCPCS: 99204

== ENCOUNTER → 2025-05-06 08:28 | Outpatient (BNVA) | payer MEDICARE, SELFPAY | PROVIDERS: PCP Internal Medicine; Visit Provider Urology | DX: N40.1 Benign prostatic hyperplasia with lower urinary tract symptoms (principal); R35.1 Nocturia; R97.20 Elevated prostate specific antigen [PSA]; I12.9 Hypertensive chronic kidney disease with stage 1 through stage 4 chronic kidney disease, or unspecified chronic kidney disease; E11.22 Type 2 diabetes mellitus with diabetic chronic kidney disease; N18.30 Chronic kidney disease, stage 3 unspecified; Z79.01 Long term (current) use of anticoagulants; Z86.711 Personal history of pulmonary embolism | CPT/HCPCS: 81003; 99202 ==

== ENCOUNTER 2025-05-12 07:37 | Outpatient (AMB) | payer MEDICARE, SELFPAY ==
--- OUTSIDE RECORDS SUMMARY | 2023-11-20 10:20 | XMS_ITS ---
Author Organization [facility] Address [address] [place] [address] Care Team Providers Care Medical Cost Consultant Name Role Phone Pearl Álvarez MD Primary Care Provider Balta Johnson [phone] REASON FOR VISIT positive cologuard Encounters Encounter Location Date Provider Diagnosis [facility] [address] [place] [address] 11/20/2023 Balta Ricks Plan Of Treatment Next Appt Details Provider Name:Balta Saldana Millicent , 07/28/2025 01:20:00 PM, [address], [address], [place], [address], Progress Notes * TYE HERNÁNDEZ EDOB:1950 (74 yo M)Acc No.[id number]:11/20/2023 Progress Notes Patient: May LU TYE Peterson Provider: Eula Ricks MD :1950 A ge:72 Y S ex:Male Date:11/20/2023 Address[address] [place], [place] Pcp:Pearl Álvarez MD Subjective: * Chief Complaints: * 1 . Positive cologuard. * Medical History: Objective: * Vitals: Assessment: Plan: * Treatment: * * The named appointment provid er may or may not be the originator of this progress note, and it is not deemed complete until electronically signed by the appointment provider. Sign off status: Pending * Provider: Eula Ricks MD Date: 0 11/20/2023 Generated for Arnol samuels/Katlin/Koby on: 1 07/12/2024 07:40 AM EST
--- OUTSIDE RECORDS SUMMARY | 2025-05-12 07:40 | XMS_ITS | Patient Health Record ---
Author Organization [facility] Address [address] [place] [address] Care Team Providers Care Binding Machine Operator Name Role Phone Po Pearl DENT Primary Care Provider Balta Johnson [phone] Allergies Allergen (clinical drug ingredient) Drug/Non Drug [...] Risk Notes Problem Diverticular disease of colon (401354852) Diverticulosis of large intestine without perforation or abscess without bleeding (K57.30) Active confirmed Problem Gastroesophageal reflux disease (828183846) Gastroesophageal reflux disease, esophagitis presence not specified (K21.9) Active confirmed Problem Esophageal ring (10179330) Esophageal ring (K22.2) Active confirmed Problem Dysphagia (95026756) Pharyngoesophageal dysphagia (R13.14) Active confirmed Plan Of Treatment Future Test Test Name Order Date UPPER GI ENDOSCOPY BALLOOON DILATION OF ESOPH 09/06/2016 COLONOSCOPY 08/07/2023 Next Appt Details Provider Name:Balta Ricks , 07/28/2025 01:20:00 PM, [address] [place] [address], [address], [place], [address], Insurance Providers Payer Name Payer Address Payer Phone Subscriber Number Group Number Insured Name Patient Relationship to Insured Coverage Start Date Coverage End Date MEDICARE OF [place] [address] [facility] [place] [address] [id number] TYE HERNÁNDEZ Self - patient is the insured [employer] ATT[employer] CLAIMS [address] [place] [address] [id number] TYE HERNÁNDEZ Self - patient is the insured Medical (General) History Medical History History ICD Code Negative screening colonosco py 01-27-2010 except for diverticulosis and internal hemorrhoids; he also had a negative colonoscopy in 2001 at [place] Depression IDDM Hyperlipidemia Hypertension Kidney stones DVT in Left leg--had a pulmonary emnbolu s--2013 GERD and dysphagia-Distal es ophageal ring--EGD 01/2017-18mm balloon dilation; small hiatal hernia; no esophagitis nor Rodríguez's esophagus Denies NM,CVA,Lung disease,renal disease Negative sleep study Negtaive ETT + Cologuard in 2022 Surgical History Surgery Date(Month/Year) Removal of a cyst under the left arm
[2025-05-12 07:59] VITALS: BP 140/80; PULSE 72; O2SAT 98
--- NOTE | 2025-05-12 07:59 | MHC.OFFVIS ---
Vital Signs 05/12/25 07:59 Height 6 ft 2 in Weight 233 lb 11.04 oz BMI 30.0 BP 140/80 H Blood Pressure Location Rt brachial Position Sitting Pulse 72 Pulse Source Pulse Oximeter Pulse Oximetry (%) 98 Oxygen Delivery Method Room Air Intake Visit Reasons: Type 2 diabetes mellitus with hyperglycemia Intake Note: Patient presents today for a follow-up on Type 2 Diabetes Mellitus: Patient last seen VERONIKA Kendrick. Last Diabetic eye exam was on: 09/09/2024, [facility] Last Podiatry exam was on: Patient does not see a Cafeteria Director Referred To [facility] Podiatry, appt scheduled for May 24. 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 Reports average blood glucose frequently >350 mg/dL, with 73% of CGM readings above target over the past 2 weeks. Current regimen includes Trulicity 3 mg weekly (tolerated; prior Ozempic and Mounjaro discontinued due to GI side effects), Basaglar 30 units BID (increased to 40 units BID today), metformin 1000 mg BID, and Lispro 4 units with meals (to be increased per new sliding scale). Reports feeling overall well and does not have any complaints other than noticing that his blood sugars are high. Reports Chronic memory issues; assists with medication adherence. Undergoing renal/bladder ultrasound this week. The patient was diagnosed with diabetes mellitus approximately 30 years ago, around 1993. Current Medications: Trulicity 3 mg weekly (tolerated; other GLP-1s caused GI side effects) Basaglar (insulin glargine) 30 units BID Metformin 1000 mg BID Lispro 4 units with meals Previous Medications: Did not tolerate Jardiance in the past, Mounjaro caused nausea Hypoglycemia: Rare, mild episodes (twice in past 2-3 months), recognized and self-managed Diet: Skips breakfast, minimal lunch (often chicken or eggs), variable dinner (chicken, pasta, pizza, burger, steak) Admits to frequent junk food, but working on improvement. 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 No retinopathy or visual complications reported Podiatry: No formal podiatric care Interval history: Forgets to use the insulin 4-5x/week, despite which his BG are better controlled than before No changes in the diet, but is avoiding sodas He might need rotator cuff injury No lows not formal exercise, but does physical work at his job Physical exam: General: Well appearing. NAD. Not Cushingoid or Acromegalic Neck/Thyroid: Thyroid not palpable, no nodules. CV: RRR, no murmur. No edema. Resp:Lungs clear to auscultation bilaterally Abdomen: Soft, nontender. nondistended Extremities/Neuro: No weakness or tremor of outstretched hands Laboratory Tests 04/07/25 11:56 Sodium 141 BUN 18 H Creatinine 1.33 Laboratory Tests 06/01/24 03/31/25 10:16 10:13 Creatinine 1.42 H Estimated GFR 49 Random Glucose 190 H TSH 1.44 Free T4 0.88 Urine Creatinine 64.22 Urine Microalbumin < 5.0 CGM data: Interpretation: Persistent hyperglycemia in the setting of intermittent compliance with regimen. [facility] Medical History Dysphagia Anxiety and depression Colon cancer screening Adult general medical exam Screening for prostate cancer Diabetic 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 associated with type 2 diabetes mellitus gusset stitcher (current) use of insulin Vitamin D deficiency Carpal tunnel syndrome, right Laceration of thumb, right, complicated CKD (chronic kidney disease) stage 3, GFR 30-59 ml/min Benign esophageal stricture Fracture of right heel History of renal calculi Hypertension Hypercholesterolemia Obesity (BMI 30-39.9) Obstructive sleep apnea History of pulmonary embolism Type 2 diabetes mellitus with hyperglycemia Surgical History History of colonoscopy Family History Father Hypertension CVD (cardiovascular disease) Prostate enlargement Mother No problems noted. Family/Other Diabetes Social History Housing: House Alcohol intake: current Alcohol intake frequency: holidays/special occasions only Alcohol type: beer Patient Tobacco Use Status: Never used Tobacco Tobacco use type: Cigarette e-Cigarette/Vaping Use: Never Used Second Hand Smoke Exposure: No service: No Current occupational status: retired Cognitive needs: No Hearing needs: No Vision needs: Yes Review of Systems Const All systems reviewed & are unremarkable except as noted in HPI and below Reports no additional complaints Eyes Reports no additional complaints ENT Reports no additional complaints Card Reports no additional complaints Resp Reports no additional complaints GI Reports no additional complaints Reports as per HPI Musc Reports no additional complaints Skin/Breast Reports system reviewed and no additional complaints, except as documented Neuro Reports no additional complaints Psych Reports no additional complaints Endo Reports no additional complaints Manuel/Lymph Reports no additional complaints Aller/Immun Reports no additional complaints Physical Exam Vital Signs: Last Vital Signs Pulse 72 05/12/25 07:59 BP 140/80 H 05/12/25 07:59 Pulse Ox 98 05/12/25 07:59 Oxygen Delivery Method Room Air 05/12/25 07:59 BMI result Body Mass Index 30.0 Const General: healthy appearing, no acute distress and well developed Orientation/consciousness: patient oriented x3 HEENT Head: Yes normocephalic and Yes atraumatic Eyes Conjunctivae: conjunctivae normal Neck Neck: Yes normal visual inspection Chest Chest palpation & inspection: normal inspection of the chest Resp Effort & Inspection: normal respiratory effort GI Inspection: Yes normal to inspection Neuro General: patient oriented x3 Psych Appearance: grossly normal Affect: normal affect Office Procedures Glucose Monitoring Details Details: See HPI 99201 - Glucose Monitoring, continuous Procedure code (CPT) selection complete Assessment & Plan Assessment & Plan (1) Type 2 diabetes mellitus with hyperglycemia: Code(s): E11.65 - Type 2 diabetes mellitus with hyperglycemia Category: Medical Qualifiers: Diabetes mellitus [facility] insulin use: with [facility] use Qualified Code(s): E11.65 - Type 2 diabetes mellitus with hyperglycemia; Z79.4 - care home (current) use of insulin Plan: 30-year history, persistent hyperglycemia (CGM: 73% readings very high, average BG 310 mg/dL) Current regimen: Trulicity 3 mg weekly, Basaglar 30 units BID (increased to 40 units BID), metformin 1000 mg BID, Lispro SS Rare mild hypoglycemia, no severe episodes Patient has had variable compliance but reports that when he follows the instructions in regards to insulin dosing, his BG control is better. In view of this, we will continue same insulin regimen and discuss with the patient importance to be consistent in its dosing. I would not increase his regimen due to risk of hypoglycemia. Plan Continue Basaglar to 40 units BID Continue sliding scale for Lispro with meals Continue Trulicity 3 mg weekly Continue metformin 1000 mg BID Reinforce importance of not skipping meals, especially breakfast, and encourage more consistent meal timing Provide education on insulin injection site rotation Monitor for hypoglycemia; patient and spouse instructed to contact office if frequent or severe lows occur Encourage gradual dietary improvements (reduce processed/junk food, increase vegetables/protein) Encourage regular, moderate physical activity as tolerated Plan 20 minutes spent reviewing previous records, labs, imaging, education and documenting in the chart Orders: Orders AMB Glucose Monitoring Today E11.65 - Type 2 diabetes mellitus with hyperglycemia, Z79.4 - care home (current) use of insulin Coding Level of Care Code Est Pt Level 3 (80231) Diagnoses Type 2 diabetes mellitus with hyperglycemia, with long-term current use of insulin E11.65; Z79.4 Diabetes mellitus stud master/mistress insulin use: with [facility] use CPT Codes Details - CPT: 94547 - Glucose Monitoring, continuous ([id number])
[2025-05-12 08:08] LABS: Glucose, Whole Blood 283 mg/dL (60-115)
== END 2025-05-12 08:21 | disposition home or self-care (01) ==
LOC: HO.ENCR 07:38
PROVIDERS: PCP Internal Medicine; Visit Provider Student in an Organized Health Care Education/Training Program
DX: E11.65 Type 2 diabetes mellitus with hyperglycemia (principal); Z79.4 Long term (current) use of insulin
CPT/HCPCS: 99213

== ENCOUNTER → 2025-05-12 07:37 | Outpatient (BNVA) | payer MEDICARE, SELFPAY | PROVIDERS: PCP Internal Medicine; Visit Provider Student in an Organized Health Care Education/Training Program | DX: E11.65 Type 2 diabetes mellitus with hyperglycemia (principal); E11.42 Type 2 diabetes mellitus with diabetic 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; E11.22 Type 2 diabetes mellitus with diabetic chronic kidney disease; N18.30 Chronic kidney disease, stage 3 unspecified; Z79.85 Long-term (current) use of injectable non-insulin antidiabetic drugs | CPT/HCPCS: 82947; 95250; 99212 ==

== ENCOUNTER 2025-05-19 13:31 | Outpatient (REF) | payer MEDICARE, SELFPAY ==
[2025-05-19 14:53] LABS: MANUAL DIFF FLAG NO
[2025-05-19 15:36] LABS: Hematocrit 48.3 % (42.0-52.0); Hemoglobin 16.6 g/dl (14.0-18.0); Imm Gran Abs Auto 0.02 X10*3/uL (0.00-0.03); Imm Gran Pct Auto 0.3 % (0.0-0.4); Lymphocytes Absolute Auto 1.7 X10*3/uL (1.2-4.9); Mean Corpuscular HGB Conc 34.4 g/dl (31.0-36.0); Mean Corpuscular Hemoglobin 30.3 pg (27.0-33.0); Mean Corpuscular Volume 88.3 fL (80.0-98.0); NRBC Abs Auto 0.000 X10*3/uL (0.0-0.012); NRBC Pct Auto 0.0 /100WBC (0.0-0.2); Platelet Count 295 X10*3/uL (160-400); Red Blood Count 5.47 X10*6/uL (4.60-5.80); White Blood Count 5.7 X10*3/uL (4.8-10.8)
[2025-05-19 15:45] LABS: Appearance Urine Clear; Glucose Urine UA >=1000 mg/dL (Negative); PH 5.5 (5.0-9.0); Specific Gravity - Urine 1.025 (1.005-1.025); UMIC TRIGGER UACC YES
[2025-05-19 16:06] LABS: Alanine Aminotransferase 21 U/L (0-40); Albumin Level 4.3 g/dL (3.5-5.0); Alkaline Phosphatase 104 U/L (39-117); Anion Gap 8 (12-20); Aspartate Amino Transferase 19 U/L (5-37); Blood Urea Nitrogen 15 mg/dL (9-16); Calcium 9.7 mg/dL (8.4-10.2); Carbon Dioxide 31 mmol/L (22-29); Chloride 107 mmol/L (96-108); Estimated Glomerular Filt Rate 47; Magnesium 1.9 mg/dL (1.6-2.6); Potassium 3.8 mmol/L (3.3-5.1); Sodium 142 mmol/L (135-145); Total Protein 7.6 g/dL (6.5-8.0)
[2025-05-19 16:22] LABS: Thyroid Stimulating Hormone 0.59 uIU/mL (0.32-4.0)
== END 2025-05-19 13:32 | disposition home or self-care (01) ==
LOC: HO.LAB 13:31
PROVIDERS: PCP Internal Medicine; Visit Provider Internal Medicine
DX: E11.65 Type 2 diabetes mellitus with hyperglycemia (principal); R42 Dizziness and giddiness; E78.00 Pure hypercholesterolemia, unspecified; I77.810 Thoracic aortic ectasia; E66.9 Obesity, unspecified; E11.22 Type 2 diabetes mellitus with diabetic chronic kidney disease; I12.9 Hypertensive chronic kidney disease with stage 1 through stage 4 chronic kidney disease, or unspecified chronic kidney disease; N18.31 Chronic kidney disease, stage 3a; R97.20 Elevated prostate specific antigen [PSA]; G47.33 Obstructive sleep apnea (adult) (pediatric); H61.23 Impacted cerumen, bilateral; N40.0 Benign prostatic hyperplasia without lower urinary tract symptoms; M25.561 Pain in right knee; Z86.711 Personal history of pulmonary embolism; Z79.4 Long term (current) use of insulin; R30.0 Dysuria
CPT/HCPCS: 36415; 69210; 80053; 81001; 83735; 84443; 85025; 99212

== ENCOUNTER 2025-05-19 13:31 | Outpatient (AMB) | payer MEDICARE, SELFPAY ==
--- OUTSIDE RECORDS SUMMARY | 2023-11-20 10:20 | XMS_ITS ---
Author Organization [facility] Address [address] [place] [address] Care Team Providers Care Rubber Attacher Name Role Phone Pearl Álvarez MD Primary Care Provider Balta Johnson [phone] REASON FOR VISIT positive cologuard Encounters Encounter Location Date Provider Diagnosis [facility] [address] [place] [address] 11/20/2023 Balta Ricks Plan Of Treatment Next Appt Details Provider Name:Balta Saldana Millicent , 07/28/2025 01:20:00 PM, [address], [address], [place], [address], Progress Notes * TYE HERNÁNDEZ EDOB:1950 (74 yo M)Acc No.[id number]:11/20/2023 Progress Notes Patient: May LU TYE Peterson Provider: Eula Ricks MD :1950 A ge:72 Y S ex:Male Date:11/20/2023 Address:[address] [place], [place] Pcp:Pearl Álvarez MD Subjective: * Chief Complaints: [...] 11/20/2023 Generated for Arnol samuels/Katlin/Koby on: 1 07/19/2024 04:23 PM EST
--- NOTE | 2025-05-19 13:58 | MHC.PC.OV ---
Vital Signs 05/19/25 13:59 Height 6 ft 2 in Weight 235 lb BMI 30.2 BP 148/82 H Blood Pressure Location Lt brachial Position Sitting Pulse 80 Pulse Source Pulse Oximeter Pulse Oximetry (%) 97 Oxygen Delivery Method Room Air Intake Visit Reasons: DM , Dizzy Allergies lisinopril Allergy (Unknown, Verified 05/19/25 13:59) cough Sulfa (Sulfonamide Antibiotics) Allergy (Unknown, Verified 05/19/25 13:59) Unknown DONAL Inhibitors (DONAL INHIBITORS) Adverse Reaction (Intermediate, Verified 05/19/25 13:59) COUGH tirzepatide Adverse Reaction (Intermediate, Verified 05/19/25 13:59) Nausea jardiance Adverse Reaction (Intermediate, Uncoded 05/19/25 13:59) weakness Medication List - Last Reconciled 05/19/25 by Pearl Álvarez MD amlodipine 5 mg PO DAILY apixaban (Eliquis) 5 mg PO BID atorvastatin 40 mg PO DAILY 90 days blood sugar diagnostic (FreeStyle Lite Strips) As directed check the [facility] TID blood-glucose sensor (FreeStyle Nori 3 Plus Sensor device) Use daily As directed to monitor glucose cyanocobalamin (vitamin B-12) 1,000 mcg PO DAILY dulaglutide (Trulicity) 4.5 mg (0.5 mL) subcut QWEEK finasteride (Proscar) 5 mg PO DAILY folic acid 1 mg PO DAILY 90 days glucose (Dex4 Glucose) 16 grams (4 x 4 gram) PO Q15M PRN insulin glargine (Basaglar KwikPen U-100 Insulin) 40 units (0.4 mL) subcut BID 30 days insulin lispro (Admelog SoloStar U-100 Insulin lispro) 4 units (0.04 mL) subcut TID losartan 50 mg PO DAILY meclizine 25 mg PO TID metformin 1,000 mg PO BID naproxen sodium 220 mg PO BID PRN Tobacco use date assessed: 11/25/24 Fall risk assessment: No Falls in past year Last assessed Fall Risk: 05/19/25 Dental Screening Dental Screen Date: 09/02/24 HPI DM , Dizzy HPI Details 6 days diarrhea, better now, dizzy and about to pass out, [facility] Medical History Dysphagia Anxiety and depression Colon cancer screening Adult general medical exam Screening for prostate cancer Diabetic 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 with type 2 diabetes mellitus 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 Family/Other Diabetes Social History Housing: House Alcohol intake: current Alcohol intake frequency: holidays/special occasions only Alcohol type: beer Patient Tobacco Use Status: Never used Tobacco Tobacco use type: Cigarette e-Cigarette/Vaping Use: Never Used Second Hand Smoke Exposure: No service: No Current occupational status: retired Cognitive needs: No Hearing needs: No Vision needs: Yes Questionnaire Thrive Questionnaire Date Thrive assessed: 11/25/24 I am a: Patient What is your living situation today?: I have a steady place to live Within the past 12 months, did the food you bought not last and you didn't have the money to get more?: I choose not to answer this question Within the past 12 months, did you worry whether your food would run out before you got money to buy more?: Never true Do you have trouble paying for medicines?: No Do you have trouble getting transportation to medical appointments?: No Do you have trouble paying your heating and electricity bill?: No Do you have trouble taking care of your child, family member or friend?: No Do you have trouble with day-to-day activities such as bathing, preparing meals, shopping, managing finances, etc.?: No Are you currently unemployed and looking for a job?: No Are you interested in more education?: No Please select the resources that you would like help with: None Currently or been in a relationship where the following occur: No concerns reported THRIVE Score: 0 APOORVA-7 AMB Questionnaire APOORVA-7 Date APOORVA - 7 assessed: 11/25/24 Source: Developed by Drs. Balta Reyes, Estefania Singh, Hiram Driver and colleagues, with an educational alonso from [employer]. Physical exam (Primary Care) Vital Signs: Last Vital Signs Pulse 80 05/19/25 13:59 BP 148/82 H 05/19/25 13:59 Pulse Ox 97 05/19/25 13:59 Oxygen Delivery Method Room Air 05/19/25 13:59 BMI result Body Mass Index 30.2 Tobacco/Smoking Status: Tobacco use Status Tobacco use date assessed 11/25/24 05/19/25 13:59 Patient Tobacco Use Status Never used Tobacco 05/19/25 13:59 Tobacco use type Cigarette 05/19/25 13:59 e-Cigarette/Vaping Use Never Used 05/19/25 13:59 Thrive Assessment: Date of Thrive Assessment Date Thrive assessed 11/25/24 05/19/25 13:59 Currently or been in a relationship where the following occur: No concerns reported Narrative Impacted cerumen bilateral ears Const General: alert; No acute distress Eyes Conjunctivae: conjunctivae normal Resp Auscultation: clear to auscultation bilaterally Cardio Rate: regular rate Rhythm: regular rhythm GI Inspection: Yes normal to inspection Extrem General: Yes normal to inspection and No edema Office Procedures Cerumen Removal From which ear canal was the cerumen removed: bilateral Removal: irrigation, otoscope w/curette, cerumen loop/spoon and other Notes: patient tolerated procedure well, no complications and ear canal clear 33249-Eqc Irrigation/Lavage Coding Level of Care Code Est Pt Level 4 (65504) Complex EM visit Add On G2211 Diagnoses Type 2 diabetes mellitus with hyperglycemia, with long-term current use of insulin E11.65; Z79.4 Diabetes mellitus alf insulin use: with alf use Essential hypertension I10 Hypertension type: essential hypertension Hypercholesterolemia E78.00 Ascending aorta dilatation I77.810 History of pulmonary embolism Z86.711 Obesity (BMI 30-39.9) E66.9 Stage 3a chronic kidney disease N18.31 Chronic kidney disease stage 3 subtype: stage 3a (GFR 45-59) Elevated PSA R97.20 Obstructive sleep apnea G47.33 Dizziness R42 Impacted cerumen of both ears H61.23 CPT Codes Office Procedure - CPT: 84457-Awa Irrigation/Lavage ([id number]) Assessment & Plan Assessment & Plan (1) Type 2 diabetes mellitus with hyperglycemia: Code(s): E11.65 - Type 2 diabetes mellitus with hyperglycemia Category: Medical Qualifiers: Diabetes mellitus alf insulin use: with alf use Qualified Code(s): E11.65 - Type 2 diabetes mellitus with hyperglycemia; Z79.4 - intermediate (current) use of insulin Plan: Decrease the amount of carbohydrate intake, pasta, bread, rice and potatoes are all sugar and that is aside from all the sweet stuff, remember that fruits are good but they are Sweet also. Patient follows up with endocrinology [facility] Basaglar short-acting sliding scale insulin metformin a 1000 twice a day (2) Hypertension: Code(s): I10 - Essential (primary) hypertension Category: Medical Qualifiers: Hypertension type: essential hypertension Qualified Code(s): I10 - Essential (primary) hypertension Plan: Continue with blood pressure medication. Decrease salt intake and exercise losartan 50 mg once a day amlodipine 5 mg once a day (3) Hypercholesterolemia: Code(s): E78.00 - Pure hypercholesterolemia, unspecified Category: Medical Plan: Avoid fried foods, chicken skin, eggs, butter margarine, pastries and meat. Be it pork or beef they have a lot of cholesterol takes atorvastatin 40 mg once a day (4) Ascending aorta dilatation: Comment: 10/2023 4.1 cm Code(s): I77.810 - Thoracic aortic ectasia Category: Medical Plan: Control the blood pressure and continue to monitor (5) History of pulmonary embolism: Comment: 06/2019? 2014, 10/2023 Code(s): Z86.711 - Personal history of pulmonary embolism Category: Medical Plan: Continue with anticoagulation with Eliquis (6) Obesity (BMI 30-39.9): Code(s): E66.9 - Obesity, unspecified Category: Medical Plan: Diet and exercise (7) CKD (chronic kidney disease) stage 3, GFR 30-59 ml/min: Code(s): N18.30 - Chronic kidney disease, stage 3 unspecified Category: Medical Qualifiers: Chronic kidney disease stage 3 subtype: stage 3a (GFR 45-59) Qualified Code(s): N18.31 - Chronic kidney disease, stage 3a Plan: Continue to monitor (8) Elevated PSA: Code(s): R97.20 - Elevated prostate specific antigen [PSA] Category: Medical Plan: Patient follows up with urology and continue surveillance (9) Obstructive sleep apnea: Comment: cannot tolerate CPAP Code(s): G47.33 - Obstructive sleep apnea (adult) (pediatric) Category: Medical Plan: Discussed about the problem of sleep apnea (10) Dizziness: Code(s): R42 - Dizziness and giddiness Category: Medical (11) Impacted cerumen of both ears: Code(s): H61.23 - Impacted cerumen, bilateral Category: Medical Plan Irrigation done for bilateral ears with scoop used TM intact History of Present Illness The patient is a 74-year-old obese male presenting for a follow-up visit for his chronic conditions and evaluation of new-onset dizziness. 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 Approximately six days prior to the visit, the patient experienced an episode of severe diarrhea, which he believes was caused by something he ate. Following this, he experienced severe vertiginous dizziness with associated nausea and vomiting on two separate occasions when working under his truck. He denies any ear pain or congestion but reports that he ruptured an eardrum as a child. For his diabetes, the patient follows with endocrinology and uses a continuous glucose monitor. His medication regimen includes Trulicity, Basaglar, metformin, and a sliding scale insulin. 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 His last blood sugar reading was 221, and he reports his usual high numbers have not changed significantly, with a recent HbA1c of 8.7%. The patient follows up with urology for BPH and an elevated PSA, for which he was started on finasteride 5 mg daily after an appointment on May 06. He had a positive Cologuard test in May 2023. His aortic dilatation measured 4.1 cm in October 2023. Recent lab work from April showed good electrolytes and improved renal function with a creatinine of 1.33. Blood work from May 12 showed a blood sugar of 283 and an LDL of 100. His last blood count in March 2025 was normal. The patient also reports significant right knee pain and has canes at home. He is considering installing a chair lift in his house and is looking for a single-story home due to mobility challenges. Health Maintenance - Colon Cancer Screening: Patient had a positive Cologuard test in May 2023. - Prostate Cancer Screening: Patient follows with urology for an elevated PSA and is undergoing surveillance. - Vaccinations: Patient has not received his flu shot. Social History - Functional Status: Patient reports right knee pain that affects his mobility. - Assistive Devices: Patient has canes at home. - Living Situation: Patient is planning to install a chair lift and is looking for a single-story house due to mobility issues. - Nutritional Intake: Patient reports drinking water and Gatorade, and denies drinking soda or milk. Review of Systems - Neurological: Reports severe whirling dizziness (vertigo) with associated nausea and vomiting for the past few days. - Gastrointestinal: Reports having the worst diarrhea of his life on Saturday evening, which has since resolved. - HEENT: Reports both ears feel blocked. - Denies ear pain or congestion. - Musculoskeletal: Reports his right knee has been killing him. Physical Exam - HEENT: Oropharynx clear. - Extraocular movements intact. - No pain on external ear palpation. - Otoscopy reveals bilateral cerumen impaction completely obstructing the canals. - Post-procedure, ear canals are open. - Lungs: Clear to auscultation bilaterally. - Abdomen: No tenderness on palpation. Results - Labs: Last blood count in March 2025 was normal. - Electrolytes were good and creatinine was 1.33 in April. - Blood sugar was 283 on May 12 and LDL was 100. - Last HbA1c was 8.7%. - Imaging: Aortic ultrasound in October 2023 showed aortic dilatation of 4.1 cm. - A prostate ultrasound was performed. - Tests: Cologuard was positive in May 2023. Plan Patient was informed and verbally consented to the use of an ambient scribe for clinic note documentation during this visit. 1. Vertigo The patient's vertigo is likely multifactorial, possibly related to dehydration from recent diarrhea, electrolyte imbalance, or the diagnosed cerumen impaction. A prescription for meclizine will be sent to be taken as needed for dizziness. Blood work will be ordered to check for electrolyte abnormalities. The patient was advised to maintain good hydration. 2. Cerumen Impaction, Bilateral The patient's ear canals were found to be bilaterally obstructed by cerumen impaction. An ear lavage was performed in the office, and both canals are now open. 3. Type 2 Diabetes Mellitus Without Complications The patient will continue to follow up with endocrinology for diabetes management. He will continue his current medications including Trulicity, Basaglar, metformin 1000 mg twice a day, and sliding scale insulin. 4. Essential (Primary) Hypertension The plan for hypertension is to continue the current regimen of losartan 50 mg once a day and amlodipine 5 mg once a day, with continued monitoring. 5. Hyperlipidemia, Unspecified For hypercholesterolemia, the patient will continue taking atorvastatin 40 mg once a day. 6. History Of Pulmonary Embolism The patient will continue with anticoagulation with Lovenox. 7. Benign Prostatic Hyperplasia The patient will continue to follow up with urology for surveillance and continue his finasteride treatment. 8. Arthralgia Of Right Knee To address the patient's right knee pain and associated mobility issues, a form for a handicap placard will be provided. Discussion Notes I explained to the patient that there are many potential causes for his dizziness, including simple ear problems, dehydration from his recent severe diarrhea, electrolyte imbalances, and more serious heart or lung issues. I noted that we could not visualize his eardrums because his ear canals were completely blocked with wax, which could be a contributing factor. We proceeded with a bilateral ear lavage, which successfully opened the canals. I am prescribing meclizine for him to take as needed for dizziness and ordering blood work to check his electrolytes to ensure they were not affected by his recent bout of diarrhea. I emphasized the importance of maintaining hydration. We also discussed obtaining a handicap placard for his right knee pain, and I provided instructions on how to complete the necessary form. I advised him to be careful during the upcoming flu season as he has not yet been vaccinated. Patient Instructions - I have sent a prescription for meclizine to your pharmacy. - Take it up to three times a day only if you feel dizzy. - It is important to drink plenty of fluids like water and Gatorade to stay hydrated, especially after your recent diarrhea. - Please go to the lab to have your blood drawn today if you have time. - This is to check your electrolyte levels. - We will call you if there are any abnormal results. - Continue taking all your regular medications for blood pressure, cholesterol, and diabetes as prescribed. - At the test desk trouble locator, ask for a handicap placard form. - Fill out your portion of the form completely and give it to the staff, who will then send it to me to complete my part. - Consider getting a flu shot, as flu season is starting. Orders: Orders Complete Blood Count Auto Diff Today R42 - Dizziness and giddiness Comprehensive Met. Panel Today R42 - Dizziness and giddiness Magnesium Today R42 - Dizziness and giddiness Thyroid Stimulating Hormone Today R42 - Dizziness and giddiness UA CC w/rflx Micro + Cult Today R30.0 - Dysuria, R42 - Dizziness and giddiness Medications: New meclizine 25 mg PO TID 20 tabs 0RF R42 - Dizziness and giddiness
[2025-05-19 13:59] VITALS: BP 148/82; PULSE 80; O2SAT 97; BMI 30.2
--- OUTSIDE RECORDS SUMMARY | 2025-05-19 16:24 | XMS_ITS | Patient Health Record ---
Author Organization [facility] Address [address] [place] [address] Care Team Providers Care Medical Research Associate Name Role Phone Po Pearl DENT Primary Care Provider Balta Johnson [phone] Allergies Allergen (clinical drug ingredient) Drug/Non Drug [...] Risk Notes Problem Diverticular disease of colon (441079361) Diverticulosis of large intestine without perforation or abscess without bleeding (K57.30) Active confirmed Problem Gastroesophageal reflux disease (351294006) Gastroesophageal reflux disease, esophagitis presence not specified (K21.9) Active confirmed Problem Esophageal ring (50318393) Esophageal ring (K22.2) Active confirmed Problem Dysphagia (58562366) Pharyngoesophageal dysphagia (R13.14) Active confirmed Plan Of Treatment Future Test Test Name Order Date UPPER GI ENDOSCOPY BALLOOON DILATION OF ESOPH 09/06/2016 COLONOSCOPY 08/07/2023 Next Appt Details Provider Name:Balta Ricks , 07/28/2025 01:20:00 PM, [address] [place] [address], [address], [place], [address], Insurance Providers Payer Name Payer Address Payer Phone Subscriber Number Group Number Insured Name Patient Relationship to Insured Coverage Start Date Coverage End Date MEDICARE OF [place] [address] [facility] [place] [address] [id number] TYE HERNÁNDEZ Self - patient is the insured [employer] ATT[employer] CLAIMS [address] [place] [address] [id number] TYE HERNÁNDEZ Self - patient is the insured Medical (General) History Medical History History ICD Code Negative screening colonosco py 01-27-2010 except for diverticulosis and internal hemorrhoids; he also had a negative colonoscopy in 2001 at [facility] Depression IDDM Hyperlipidemia Hypertension Kidney stones DVT in Left leg--had a pulmonary emnbolu s--2013 GERD and dysphagia-Distal es ophageal ring--EGD 01/2017-18mm balloon dilation; small hiatal hernia; no esophagitis nor Rodríguez's esophagus Denies [place],CVA,Lung disease,renal disease Negative sleep study Negtaive ETT + Cologuard in 2022 Surgical History Surgery Date(Month/Year) Removal of a cyst under the left arm
== END 2025-05-19 14:39 | disposition home or self-care (01) ==
LOC: HO.HMCH 13:32
PROVIDERS: PCP Internal Medicine; Visit Provider Internal Medicine
DX: I12.9 Hypertensive chronic kidney disease with stage 1 through stage 4 chronic kidney disease, or unspecified chronic kidney disease (principal); E11.65 Type 2 diabetes mellitus with hyperglycemia; Z79.4 Long term (current) use of insulin; N18.31 Chronic kidney disease, stage 3a; E78.00 Pure hypercholesterolemia, unspecified; Z86.711 Personal history of pulmonary embolism; I77.810 Thoracic aortic ectasia; E66.9 Obesity, unspecified; R97.20 Elevated prostate specific antigen [PSA]; G47.33 Obstructive sleep apnea (adult) (pediatric); R42 Dizziness and giddiness; H61.23 Impacted cerumen, bilateral

== ENCOUNTER 2025-05-24 11:09 | Outpatient (AMB) | payer MEDICARE, SELFPAY ==
[2025-05-24 11:29] VITALS: BMI 30.2
--- NOTE | 2025-05-24 11:29 | A.OFFVIS_ITS ---
Vital Signs 05/24/25 11:29 Height 6 ft 2 in Weight 235 lb BMI 30.2 Intake Visit Reasons: Type II diabetes Intake Note: Donald is a 74 year old male who presents today as a new patient for a Diabetic foot eval. Patient reports his glucose is currently at 183 and he is unsure of his last A1c reading. He denies experiencing numbness or tingling in his feet and he mentions about 15 years ago he had broken his right heel. Patient left hallux nail appears to be thick and discolored and he has tried tea tree oil with no relief to his symptoms [id number] Allergies lisinopril Allergy (Unknown, Verified 05/24/25 11:30) cough Sulfa (Sulfonamide Antibiotics) Allergy (Unknown, Verified 05/24/25 11:30) Unknown DONAL Inhibitors (DONAL INHIBITORS) Adverse Reaction (Intermediate, Verified 05/24/25 11:30) COUGH tirzepatide Adverse Reaction (Intermediate, Verified 05/24/25 11:30) Nausea jardiance Adverse Reaction (Intermediate, Uncoded 05/19/25 13:59) weakness HPI HPI Type II diabetes: Details: 74-year-old male with past medical history diabetes mellitus type 2, CKD stage 3, hypertension, hyperlipidemia, left leg DVT and PE, presents for annual diabetic evaluation. Does endorse occasional right foot numbness, worst after ambulating. Has a history of a right heel fracture over 20 years ago that was treated nonoperatively. Also complains of left big toenail discoloration and thickening for the past year. He has tried topical treat tea tree oil which has not helped. 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 Family/Other Diabetes Social History Housing: House Alcohol intake: current Alcohol intake frequency: holidays/special occasions only Alcohol type: beer Patient Tobacco Use Status: Never used Tobacco Tobacco use type: Cigarette e-Cigarette/Vaping Use: Never Used Second Hand Smoke Exposure: No service: No Current occupational status: retired Cognitive needs: No Hearing needs: No Vision needs: Yes Review of Systems Const All systems reviewed & are unremarkable except as noted in HPI and below Physical Exam Vital Signs: BMI result Body Mass Index 30.2 Extrem Other: *Bilateral Lower Extremity Focused Diabetic Foot Exam Vascular: DP/PT 2/4, CFT<3s to digits, TG warm to cool, no pedal edema, pedal hair present Derm: Skin: No open lesions, ulcerations, or calluses. Interdigital spaces: Clear, no maceration or fungal infection. Nails:Dystrophic thickened elongated discolored left hallux nail which has brittle and mildly loosened with subungual debris. Right hallux nail mildly discolored, right 2nd toenail mildly thickened and discolored. Neuro: [place]-denise monofilament (10g) test 10/10 intact to right foot, 10/10 intact to left foot. Msk: Deformities: No evidence of hammertoes, bunions, Charcot changes, or other structural abnormalities. Muscle strength: 5/5 in all muscle groups. Gait: Normal, no antalgic or steppage gait observed. Footwear Assessment: Shoes inspected; appropriate fit, no excessive wear, or foreign objects noted. Assessment & Plan Assessment & Plan (1) Tinea unguium: Code(s): B35.1 - Tinea unguium Category: Medical Plan: * Nail biopsy performed of left hallux nail. * Discussed treatment options including topical treatment versus oral antifungal medications. * Explained that oral antifungals such as terbinafine (Lamisil) may cause gastrointestinal upset, headache, rash, taste disturbances, and hepatotoxicity. Baseline and monthly liver function monitoring is recommended during therapy. Patients should be advised to report symptoms such as jaundice, dark urine, or persistent nausea. * Patient was counseled on the importance of anti-fungal foot hygiene, including daily washing and thorough drying of feet, regular changing of socks, and use of breathable footwear. Recommended antifungal sprays shoes. Education provided on keeping toenails trimmed and clean to reduce risk of fungal infections. Preventive strategies discussed to minimize recurrence of fungal infections. * Rx ciclopirox * Follow up in 1 month to review nail biopsy results Orders: Orders Surgical Today B35.1 - Tinea unguium Fungus Cult Hair/Skin/Nail Today B35.1 - Tinea unguium Medications: New ciclopirox 8% Apply to fungal toenails daily. Remove build-up at the end of the week. 1 appl topical BEDTIME 6.6 mL 3RF Nail fungus 4 months B35.1 - Tinea unguium Coding Level of Care Code New Pt Level 4 (84607) Diagnoses Tinea unguium B35.1 Time Spent (min) 30
== END 2025-05-24 11:42 | disposition home or self-care (01) ==
LOC: HO.HPODS 11:10
PROVIDERS: PCP Internal Medicine; Visit Provider Student in an Organized Health Care Education/Training Program
DX: B35.1 Tinea unguium (principal)
CPT/HCPCS: 99204

== ENCOUNTER 2025-05-24 11:09 | Outpatient (REF) | payer MEDICARE, SELFPAY | END 2025-05-24 11:10 | disposition home or self-care (01) | LOC: HO.LNP 11:09 | PROVIDERS: PCP Internal Medicine; Visit Provider Student in an Organized Health Care Education/Training Program | DX: B35.1 Tinea unguium (principal) | CPT/HCPCS: 87101; 87220; 88304; 88305; 88312; 99202 ==

== ENCOUNTER 2025-05-31 13:27 | Outpatient (REF) | payer MEDICARE, SELFPAY ==
--- NOTE | ~2025-05-31 | US_ITS ---
EXAMINATION: US RETROPERITONEUM HISTORY: N18.31 - Chronic kidney disease, stage 3a TECHNIQUE: Real-time grayscale ultrasound imaging of the kidneys was performed and images were reviewed. COMPARISON: There are no prior studies available for comparison. FINDINGS: Right kidney: The right kidney measures 11.3 x 5.3 x 5.3 cm. Renal parenchymal echotexture and thickness are normal. There are no masses. There is no hydronephrosis or renal calculi. Left Kidney: The left kidney measures 11.4 x 6.5 x 5.5 cm. Renal parenchymal echotexture and thickness are normal. There is an interpolar cyst measuring 5.0 x 4.7 x 4.3 cm in the lower pole cyst measuring 2.5 x 2.0 x 2.8 cm. There is no hydronephrosis or renal calculi. There is a right-sided bladder diverticulum measuring 3.1 x 5.1 x 3.3 cm. The urinary bladder is otherwise unremarkable. Bilateral ureteral jets are identified. Before voiding, the urinary bladder measured 10.2 x 8.1 x 8.3 cm, for an estimated volume of 361 mL. After voiding, the urinary bladder measured 6.8 6.2 x 5.9 cm, for an estimated volume of 132 mL. The prostate measures 4.1 x 5.3 x 4.7 cm, for an estimated volume of 53.4 mL. US/US retroperitoneal comp IMPRESSION: 1. Left renal cysts as described. 2. 3.1 x 5.1 x 3.2 cm right lateral bladder diverticulum. 3. Post void bladder residual of 132 mL. 4. Prostate volume of 53.4. Electronically signed by: Balta Padron MD 05/31/2025 02:57 PM [facility]
== END 2025-05-31 13:28 | disposition home or self-care (01) ==
LOC: HO.US 13:27
PROVIDERS: PCP Internal Medicine; Visit Provider Internal Medicine
DX: N18.31 Chronic kidney disease, stage 3a (principal); N40.1 Benign prostatic hyperplasia with lower urinary tract symptoms; N39.0 Urinary tract infection, site not specified; R35.1 Nocturia; R97.20 Elevated prostate specific antigen [PSA]
CPT/HCPCS: 76770

== ENCOUNTER → 2025-05-31 13:30 | Outpatient (BNV) | payer MEDICARE, SELFPAY | PROVIDERS: PCP Internal Medicine; Visit Provider Radiology Diagnostic Radiology | DX: N18.31 Chronic kidney disease, stage 3a (principal); N28.1 Cyst of kidney, acquired | CPT/HCPCS: 76770 ==

== ENCOUNTER 2025-06-09 07:32 | Outpatient (AMB) | payer MEDICARE, SELFPAY ==
[2025-06-09 08:05] VITALS: BP 144/86; PULSE 77; O2SAT 94; BMI 29.9
--- NOTE | 2025-06-09 08:05 | A.OFFVIS_ITS ---
Intake Vital Signs 06/09/25 08:05 Height 6 ft 2 in Weight 233 lb BMI 29.9 BP 144/86 H Blood Pressure Location Lt brachial Position Sitting Pulse 77 Pulse Source Pulse Oximeter Pulse Oximetry (%) 94 Oxygen Delivery Method Room Air Intake Visit Reasons: TALYA [id number] Allergies lisinopril Allergy (Unknown, Verified 06/09/25 08:07) cough Sulfa (Sulfonamide Antibiotics) Allergy (Unknown, Verified 06/09/25 08:07) Unknown DONAL Inhibitors (DONAL INHIBITORS) Adverse Reaction (Intermediate, Verified 06/09/25 08:07) COUGH tirzepatide Adverse Reaction (Intermediate, Verified 06/09/25 08:07) Nausea jardiance Adverse Reaction (Intermediate, Uncoded 06/09/25 08:07) weakness Medication List - Last Reconciled 06/09/25 by Tami Russo PA-C amlodipine 5 mg PO DAILY apixaban (Eliquis) 5 mg PO BID atorvastatin 40 mg PO DAILY 90 days blood sugar diagnostic (FreeStyle Lite Strips) As directed check the [facility] TID blood-glucose sensor (FreeStyle Nori 3 Plus Sensor device) Use daily As directed to monitor glucose ciclopirox 8% 1 appl topical BEDTIME 4 months cyanocobalamin (vitamin B-12) 1,000 mcg PO DAILY dulaglutide (Trulicity) 4.5 mg (0.5 mL) subcut QWEEK finasteride (Proscar) 5 mg PO DAILY folic acid 1 mg PO DAILY 90 days glucose (Dex4 Glucose) 16 grams (4 x 4 gram) PO Q15M PRN insulin glargine (Basaglar KwikPen U-100 Insulin) 40 units (0.4 mL) subcut BID 30 days insulin lispro (Admelog SoloStar U-100 Insulin lispro) 4 units (0.04 mL) subcut TID losartan 50 mg PO DAILY meclizine 25 mg PO TID metformin 1,000 mg PO BID naproxen sodium 220 mg PO BID PRN HPI TALYA G0439 HPI Details 74-year-old male with past medical histo ry of uncontrolled diabetes mellitus, hypertension, hypercholesterolemia, chronic kidney disease, history of left leg DVT and pulmonary embolism, ascending aorta dilation and obstructive sleep apnea last seen 05/2025 coming in for annual wellness visit. In review of the notes, seen by podiatry 05/2025 treated for tinea unguium. He is seen by endocrinology 05/12/2025 for diabetes continued on medication regimen. Seen by urology 04/2025 ultrasound was ordered to assess kidney and prostate and started on finasteride plan to follow up in 4 months Presenting for an annual wellness visit and evaluation of a cough. The patient reports a cough that began about 3 weeks ago after a cold-like illness. The cough is productive of a small amount of green sputum, interrupts sleep, and is worse when lying flat. The patient denies fever, shortness of breath, or chest pain. He reports the cough has been improving. The patient recently experienced a period of high blood sugars that were difficult to control, but they are now starting to level out. The last A1c was 9.5. For hypertension, the patient is on medication but admits to not being fully compliant, stating they are trying to take them. The patient did not take blood pressure medication this morning. Colonoscopy: 08/2023 PSA: Urology Vaccines: Up-to-date advanced directives: believes he completed prev [facility] Medical History Dysphagia Anxiety and depression Colon cancer screening Adult general medical exam Screening for prostate cancer Diabetic 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 associated with type 2 diabetes mellitus shelter (current) use of insulin Vitamin D deficiency Carpal tunnel syndrome, right Laceration of thumb, right, complicated CKD (chronic kidney disease) stage 3, GFR 30-59 ml/min Benign esophageal stricture Fracture of right heel History of renal calculi Hypertension Hypercholesterolemia Obesity (BMI 30-39.9) Obstructive sleep apnea History of pulmonary embolism Type 2 diabetes mellitus with hyperglycemia Surgical History History of colonoscopy Family History Father Hypertension CVD (cardiovascular disease) Prostate enlargement Mother No problems noted. Family/Other Diabetes Social History Housing: House Alcohol intake: current Alcohol intake frequency: holidays/special occasions only Alcohol type: beer Patient Tobacco Use Status: Never used Tobacco Tobacco use type: Cigarette e-Cigarette/Vaping Use: Never Used Second Hand Smoke Exposure: No service: No Current occupational status: retired Cognitive needs: No Hearing needs: No Vision needs: Yes Questionnaire Medicare Wellness Checkup [age] What gender do you identify with?: male During the past 4 weeks, how much have you been bothered by emotional problems such as feeling anxious, depressed, irritable, sad or downhearted, and blue?: slightly During the past 4 weeks, has your physical & emotional health limited your social activities with family, friends, neighbors, or groups?: slightly During the past 4 weeks, how much bodily pain have you generally had?: very mild pain During the past 4 weeks, was someone available to help you if you needed & wanted help?: yes, as much as I wanted During the past 4 weeks, what was the hardest physical activity you could do for at least 2 minutes?: heavy Can you get to places out of walking distance without help? (For eg., can you travel alone on buses, taxis or drive your car?): Yes Can you go shopping for groceries or clothes without someone's help?: Yes Can you prepare your own meals?: Yes Can you do your housework without help?: Yes Because of any health problems, do you need the help of another person with your personal care needs such as eating, bathing, dressing or getting around the house?: No Can you handle your own money without help?: Yes During the past 4 weeks, how would you rate your health in general?: fair During the past 4 weeks how have things been going for you?: pretty well Are you having difficulties driving your car?: no Do you always fasten your seat belt when you are in a car?: yes, usually During past 4 weeks, have you been bothered by the following: never: Sexual problems?, Trouble eating well?, Teeth or denture problems?, Problems using the telephone? and Tiredness or fatigue? and seldom: Falling or dizzy when standing up Have you fallen 2 or more times in the past year?: No Are you afraid of falling?: No Are you a smoker?: no During the past 4 weeks, how many drinks of wine, beer, or other alcoholic beverages did you have?: 1 drink or less per week Do you exercise for about 20 minutes 3 or more times a week?: yes, all the time Have you been given information to help with the following?: no: Hazards in your house that might hurt you? and no: Keeping track of your medications? How often do you have trouble taking medicines the way you have been told to take them?: sometimes I take medicine as prescribed How confident are you that you can control & manage most of your health problems?: somewhat confident What is your race?: White Mini Mental State Exam (MMSE) Orientation What is the (year) (season) (date) (day) (month)?: year, season, date, day and month Where are we (state) (county) (town or city) (hospital) (floor)?: state, county, town or city, hospital/clinic and floor Score Score: 10 PHQ-9 Over the last 2 weeks, how often have you been bothered by any of the following problems? 1. Little interest or pleasure in doing things: several days 2. Feeling down, depressed, or hopeless: not at all 3. Trouble falling or staying asleep, or sleeping too much: not at all 4. Feeling tired or having little energy: several days 5. Poor appetite or overeating: not at all 6. Feeling bad about yourself - or that you are a failure or have let yourself or your family down: not at all 7. Trouble concentrating on things, such as reading the newspaper or watching television: not at all 8. Moving or speaking so slowly that other people could have noticed. Or the opposite - being so fidgety or restless that you have been moving around a lot more than usual: not at all 9. Thoughts that you would be better off or of hurting yourself in some way: not at all Total score: 2 Depression Screening Interpretation: Negative Depression Screening Done: Yes Source: Developed by Drs. Balta Reyes, Estefania Singh, Hiram Driver and colleagues, with an educational alonso from [employer]. Review of Systems Const Denies body aches, Denies chills, Denies fever(s), Denies headache(s) and Denies poor appetite Eyes Reports no additional complaints ENT Denies dysphagia, Denies dizziness, Denies headache(s) and Denies odynophagia Card Denies chest pain, Denies syncope, Denies edema, Denies irregular heart rhythm, Denies lightheadedness and Denies dyspnea Resp Reports cough, Reports excessive phlegm production and Denies dyspnea GI Denies abdominal pain, Denies dysphagia, Denies diarrhea, Denies nausea, Denies odynophagia and Denies vomiting Reports no additional complaints Musc Reports no additional complaints and Denies abnormal gait Skin/Breast Reports system reviewed and no additional complaints, except as documented Neuro Denies abnormal gait, Denies dizziness, Denies syncope and Denies headache(s) Psych Reports no additional complaints Physical Exam Vital Signs: Last Vital Signs Pulse 77 06/09/25 08:05 BP 144/86 H 06/09/25 08:05 Pulse Ox 94 06/09/25 08:05 Oxygen Delivery Method Room Air 06/09/25 08:05 BMI result Body Mass Index 29.9 Const General: cooperative, healthy appearing, comfortable and no acute distress Orientation/consciousness: patient oriented x3 HEENT Head: Yes normocephalic Ears: hearing grossly normal bilaterally, external ears normal, TM's normal bilaterally and EAC's normal General nose exam: Normal external nose present Face and sinus: Yes normal facial exam and Yes sinuses nontender Mouth: Normal oral and palatal mucosa present and tongue normal Throat: Yes posterior oropharynx normal Eyes General: appearance normal, both eyes and all related structures Conjunctivae: conjunctivae normal Pupils: Equal, round and reactive pupils present EOM: EOMs intact bilaterally and No Nystagmus present Neck Neck: Yes normal visual inspection, Yes full ROM and Yes no lymphadenopathy Chest Chest palpation & inspection: normal inspection of the chest Resp Effort & Inspection: normal respiratory effort Auscultation: clear to auscultation bilaterally, no crackles, no rales, no rhonchi, no wheezes and breath sounds present Cardio Rate: regular rate Rhythm: regular rhythm Peripheral pulses: radial pulses present and dorsalis pedis present GI Inspection: Yes normal to inspection and No Abdominal wall edema Palpation (GI): Soft to palpation, not firm and nontender Auscultation: normal bowel sounds Rectal Exam - Male: Yes deferred General: Yes no CVA tenderness Back/Spine/Pelvis Back: no CVA tenderness Skin General skin exam: no rashes or lesions noted Neuro General: patient oriented x3 Cranial nerves: Yes Equal, round and reactive pupils present, Yes Midline tongue present, Yes Ability to bilaterally elevate shoulders present and No Nystagmus present Gait exam (Neuro): Normal gait present Extrem General: Yes normal to inspection, Yes full ROM, No no pedal edema and No edema Psych Speech and movement: Normal speech and movement present Affect: normal affect Insight: Good insight present (Psych) Judgement: Good judgement present (Psych) Results AMB Hemoglobin A1c AMB Hemoglobin A1c 9.5 % Last Edit by Irina Casiano CMA on 06/09/25 08 :29 Results Reviewed Results Reviewed: Laboratory Last Values Hgb A1c (Clinic) 9.5 % (4.0-6.0) H 06/09/25 08:05 Assessment & Plan Assessment & Plan (1) Encounter for annual wellness exam in Medicare patient: Code(s): Z00.00 - Encounter for general adult medical examination without abnormal findings Plan: Patient is up to date on all recommended routine screenings and vaccinations for his age. He is due for flu shot but is not feeling well today and this will be deferred. Healthy diet and regular exercise is encouraged. Plan to follow up in 3 months [place] of care was reviewed with patient patient was provided with a written screening schedule. Healthcare proxy/ MOLST forms were reviewed patient believes he has completed these previously. (2) Hypertension: Code(s): I10 - Essential (primary) hypertension Qualifiers: Hypertension type: essential hypertension Qualified Code(s): I10 - Essential (primary) hypertension Plan: Continue on current blood pressure medication. Avoid salt intake and encourage healthy diet and regular exercise. Blood pressure is elevated in the office today and patient reports he did not take his medications. Patient reports he will not call in or message his blood pressure through the portal as he will forget. I will reach out to the patient to get his home blood pressure readings however patient states he will likely not answer the phone. He reports his home readings are good and his takes them regularly. (3) Hypercholesterolemia: Code(s): E78.00 - Pure hypercholesterolemia, unspecified Plan: Avoid foods that are high in cholesterol such as red meat, fried foods, eggs and baked goods. Triglyceride goal of less than 150 and LDL goal of less than 100. (4) Pulmonary embolism: Comment: October 2023 Code(s): I26.99 - Other pulmonary embolism without acute cor pulmonale Plan: Continue on Eliquis BID (5) Type 2 diabetes mellitus with hyperglycemia: Code(s): E11.65 - Type 2 diabetes mellitus with hyperglycemia Qualifiers: Diabetes mellitus terminal gauger supervisor insulin use: with correction use Qualified Code(s): E11.65 - Type 2 diabetes mellitus with hyperglycemia; Z79.4 - shelter (current) use of insulin Plan: Decrease the amount of carbohydrates such as pasta, bread, rice, and potatoes and limit the amount of sweets. Although fruits are generally healthy they should be eaten in moderation as they are still high in sugar. Hemoglobin A1c goal of less than 7%. Reports his sugars were high for a while but have been improving. A1c in the clinic today is 9.5% which is not improved since last value. he will continue with his current medication regimen and continue to follow with endocrinology. Discussed medication adherence. (6) Obesity (BMI 30-39.9): Code(s): E66.9 - Obesity, unspecified Plan: Healthy diet and regular exercise is encouraged. (7) CKD (chronic kidney disease) stage 3, GFR 30-59 ml/min: Code(s): N18.30 - Chronic kidney disease, stage 3 unspecified Qualifiers: Chronic kidney disease stage 3 subtype: stage 3a (GFR 45-59) Qualified Code(s): N18.31 - Chronic kidney disease, stage 3a Plan: Continue to avoid kidney irritants such as NSAIDs and stay well hydrated. (8) BPH associated with nocturia: Code(s): N40.1 - Benign prostatic hyperplasia with lower urinary tract symptoms; R35.1 - Nocturia Plan: He will continue to follow with Urology and recently had US completed. Continue on Finasteride. (9) Diabetic 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 associated with type 2 diabetes mellitus: Code(s): E11.42 - Type 2 diabetes mellitus with diabetic 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 Plan: Decrease the amount of carbohydrates such as pasta, bread, rice, and potatoes and limit the amount of sweets. Although fruits are generally healthy they should be eaten in moderation as they are still high in sugar. Continue to follow with podiatry. (10) Obstructive sleep apnea: Comment: cannot tolerate CPAP Code(s): G47.33 - Obstructive sleep apnea (adult) (pediatric) Plan: No CPAP at this time. Recommend weight reduction and positional therapy. (11) Cough: Code(s): R05.9 - Cough, unspecified Plan: The patient presents with a cough for 3 weeks which has been improving with mild sputum production following a cold like illness. Physical exam reveals clear lungs bilaterally. The assessment is acute bronchitis, which is likely viral and can persist for an extended period. Steroids are not recommended due to the patient's diabetes. A prescription for benzonatate and recommended that the patient use [id number] Mucinex to help with phlegm. The patient is advised to return for follow-up, which may include a chest X-ray, if the cough worsens, does not improve, or if fevers develop. Plan This note was constructed using voice recognition software. While every effort has been made to ensure accuracy and dining service supervisor, still areas may have been included sometimes these areas may affect the content or meeting of the given symptoms. Total time spent caring for the patient today was 30 minutes. This includes time spent before the visit reviewing the chart, time spent during the visit, and time spent after the visit and documentation. Patient was informed and verbally consented to the use of an ambient scribe for clinic note documentation during this visit. Orders: Orders 2 AMB Hemoglobin A1c Today Z13.9 - Encounter for screening, unspecified Medications: New benzonatate 200 mg PO BID PRN 30 caps 0RF cough Quality Reporting (2019) Depression/Bipolar (159/160/161/177) PHQ-9: Total score: 2 Coding Level of Care Code Medicare Subsequent (G0439) Diagnoses Encounter for annual wellness exam in Medicare patient Z00.00 Essential hypertension I10 Hypertension type: essential hypertension Hypercholesterolemia E78.00 Pulmonary embolism I26.99 Type 2 diabetes mellitus with hyperglycemia, with long-term current use of insulin E11.65; Z79.4 Diabetes mellitus terminal gauger supervisor insulin use: with terminal gauger supervisor use Obesity (BMI 30-39.9) E66.9 Stage 3a chronic kidney disease N18.31 Chronic kidney disease stage 3 subtype: stage 3a (GFR 45-59) BPH associated with nocturia N40.1; R35.1 Diabetic 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 associated with type 2 diabetes mellitus E11.42 Obstructive sleep apnea G47.33 Cough R05.9 CPT Codes Advance Care Planning - Time spent: 1-15 minutes, not on file ([id number]) Advance Care Planning Advance Care Planning discussion: Exists, not on file Date of discussion: 06/09/25 Who was present: patient, myself Time spent: 1-15 minutes, not on file
== END 2025-06-09 08:53 | disposition home or self-care (01) ==
LOC: HO.HMCH 07:33
PROVIDERS: PCP Internal Medicine
DX: Z00.00 Encounter for general adult medical examination without abnormal findings (principal); I12.9 Hypertensive chronic kidney disease with stage 1 through stage 4 chronic kidney disease, or unspecified chronic kidney disease; I26.99 Other pulmonary embolism without acute cor pulmonale; E11.65 Type 2 diabetes mellitus with hyperglycemia; Z79.4 Long term (current) use of insulin; N18.31 Chronic kidney disease, stage 3a; E11.42 Type 2 diabetes mellitus with diabetic 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; E78.00 Pure hypercholesterolemia, unspecified; E66.9 Obesity, unspecified; N40.1 Benign prostatic hyperplasia with lower urinary tract symptoms; R35.1 Nocturia; G47.33 Obstructive sleep apnea (adult) (pediatric); R05.9 Cough, unspecified

== ENCOUNTER → 2025-06-09 07:32 | Outpatient (BNVA) | payer MEDICARE, SELFPAY | PROVIDERS: PCP Internal Medicine | DX: Z13.1 Encounter for screening for diabetes mellitus (principal) | CPT/HCPCS: 83036 ==